=== PATIENT | male | born 1940 | race Caucasian/White ===

== ENCOUNTER → 2017-07-07 | Outpatient (CLI) | payer MEDICARE, BC ==
[2017-07-07 08:57] LABS: Basophils # (A) 0.1 k/uL (0-0.2); Basophils % (A) 1 %; Eosinophils # (A) 0.4 k/uL (0-0.7); Eosinophils % (A) 5 %; HCT 42.4 % (39.0-53.0); HGB 14.4 gm/dL (13.0-17.5); Lymphocytes # (A) 1.8 k/uL (1.0-4.8); Lymphocytes % (A) 26 %; MCH 31.5 pg (25.0-35.0); MCHC 33.9 g/dL (31.0-37.0); Mean Platelet Volume 7.4; Monocytes # (A) 0.5 k/uL (0-1.0); Monocytes % (A) 8 %; Neutrophils # (A) 4.1 k/uL (1.3-7.7); Neutrophils % (A) 59 %; Platelet Count 230 k/uL (150-450); RBC 4.56 m/uL (4.30-5.90); RDW 12.9 % (11.5-15.5); WBC 6.9 k/uL (3.8-10.6)
[2017-07-07 09:58] LABS: ALT 24 U/L (21-72); AST 24 U/L (17-59); Alkaline Phosphatase 54 U/L (38-126); Anion Gap 13 mmol/L; Blood Urea Nitrogen 20 mg/dL (9-20); Calcium 9.5 mg/dL (8.4-10.2); Carbon Dioxide 27 mmol/L (22-30); Chloride 103 mmol/L (98-107); Cholesterol 206 mg/dL (<200); Creatine Kinase 134 U/L (55-170); Glucose 96 mg/dL (74-99); HDL Cholesterol 35 mg/dL (40-60); LDL Cholesterol,Calculated 127 mg/dL (0-99); Magnesium 2.1 mg/dL (1.6-2.3); Potassium 4.5 mmol/L (3.5-5.1); Sodium 143 mmol/L (137-145); Total Bilirubin 0.6 mg/dL (0.2-1.3); Total Protein 6.5 g/dL (6.3-8.2); Triglycerides 218 mg/dL (<150); Uric Acid 6.7 mg/dL (3.5-8.5)
[2017-07-07 10:12] LABS: T4, Free (Free Thyroxine) 0.94 ng/dL (0.78-2.19)
[2017-07-07 10:26] LABS: Prostate Specific Antigen 0.11 ng/mL (0.00-4.00)
[2017-07-07 10:27] LABS: Erythrocyte Sedimentation Rate 9 mm/hr (0-15)
[2017-07-07 17:15] LABS: Hemoglobin A1C 5.2 % (4.0-6.0)
== END | disposition home or self-care (01) ==
LOC: LABWHC1 08:11
PROVIDERS: ATTEND Family Medicine
DX: Z00.00 Encounter for general adult medical examination without abnormal findings (principal); E78.2 Mixed hyperlipidemia; H53.2 Diplopia; M10.9 Gout, unspecified; R53.83 Other fatigue
CPT/HCPCS: 36415; 80053; 80061; 82306; 82550; 82607; 83036; 83735; 84153; 84439; 84443; 84550; 85025; 85652

== ENCOUNTER → 2017-11-15 | Outpatient (CLI) | payer MEDICARE, BC ==
[2017-11-15 08:43] LABS: Appearance,Urine Clear (Clear); Bilirubin,Urine Negative (Negative); Blood,Urine Negative (Negative); Color,Urine Light Yellow; Glucose,Urine (UA) Negative (Negative); Ketones,Urine Negative (Negative); Leukocyte Esterase,Urine Negative (Negative); Nitrite,Urine Negative (Negative); PH, Urine 6.5 (5.0-8.0); Protein,Urine Negative (Negative); Specific Gravity,Urine 1.011 (1.001-1.035); Urobilinogen,Urine <2.0 mg/dL (<2.0)
[2017-11-15 08:44] LABS: Basophils # (A) 0.1 k/uL (0-0.2); Basophils % (A) 1 %; Eosinophils # (A) 0.3 k/uL (0-0.7); Eosinophils % (A) 4 %; Lymphocytes # (A) 1.4 k/uL (1.0-4.8); Lymphocytes % (A) 23 %; MCH 30.8 pg (25.0-35.0); MCHC 32.6 g/dL (31.0-37.0); MCV 94.5 fL (80.0-100.0); Mean Platelet Volume 6.4; Monocytes # (A) 0.4 k/uL (0-1.0); Monocytes % (A) 6 %; Neutrophils % (A) 64 %; Platelet Count 228 k/uL (150-450); RBC 4.54 m/uL (4.30-5.90); RDW 12.7 % (11.5-15.5); WBC 6.2 k/uL (3.8-10.6)
[2017-11-15 09:20] LABS: ALT 22 U/L (21-72); AST 24 U/L (17-59); Alkaline Phosphatase 44 U/L (38-126); Anion Gap 7 mmol/L; Blood Urea Nitrogen 19 mg/dL (9-20); Calcium 9.1 mg/dL (8.4-10.2); Carbon Dioxide 29 mmol/L (22-30); Chloride 104 mmol/L (98-107); Cholesterol 164 mg/dL (<200); Creatine Kinase 103 U/L (55-170); Glucose 93 mg/dL (74-99); HDL Cholesterol 39 mg/dL (40-60); LDL Cholesterol,Calculated 94 mg/dL (0-99); Magnesium 1.9 mg/dL (1.6-2.3); Potassium 4.4 mmol/L (3.5-5.1); Sodium 140 mmol/L (137-145); Total Bilirubin 0.6 mg/dL (0.2-1.3); Total Protein 6.5 g/dL (6.3-8.2); Triglycerides 156 mg/dL (<150); Uric Acid 6.3 mg/dL (3.5-8.5)
[2017-11-15 09:30] LABS: T4, Free (Free Thyroxine) 0.97 ng/dL (0.78-2.19)
[2017-11-15 19:57] LABS: Hemoglobin A1C 5.4 % (4.0-6.0)
== END | disposition home or self-care (01) ==
LOC: LABWHC1 07:39
PROVIDERS: ATTEND Family Medicine
DX: Z00.00 Encounter for general adult medical examination without abnormal findings (principal); I10 Essential (primary) hypertension; E78.2 Mixed hyperlipidemia; M10.9 Gout, unspecified
CPT/HCPCS: 36415; 80053; 80061; 81003; 82550; 83036; 83735; 84439; 84443; 84550; 85025

== ENCOUNTER → 2018-07-10 | Outpatient (CLI) | payer MEDICARE, BC ==
[2018-07-10 08:13] LABS: Basophils # (A) 0.1 k/uL (0-0.2); Basophils % (A) 1 %; Eosinophils # (A) 0.3 k/uL (0-0.7); Eosinophils % (A) 5 %; HCT 42.5 % (39.0-53.0); HGB 14.2 gm/dL (13.0-17.5); Lymphocytes # (A) 1.6 k/uL (1.0-4.8); Lymphocytes % (A) 26 %; MCH 31.6 pg (25.0-35.0); MCHC 33.3 g/dL (31.0-37.0); MCV 94.7 fL (80.0-100.0); Mean Platelet Volume 6.7; Monocytes # (A) 0.4 k/uL (0-1.0); Monocytes % (A) 7 %; Neutrophils # (A) 3.8 k/uL (1.3-7.7); Neutrophils % (A) 60 %; Platelet Count 249 k/uL (150-450); RBC 4.49 m/uL (4.30-5.90); RDW 13.7 % (11.5-15.5); WBC 6.3 k/uL (3.8-10.6)
[2018-07-10 16:21] LABS: Albumin 4.3 g/dL (3.80-4.90); Albumin/Globulin Ratio 2.53 (1.60-3.17); Anion Gap 7.3 mmol/L (4.00-12.00); Calcium 8.8 mg/dL (8.7-10.3); Carbon Dioxide 27.7 mmol/L (21.6-31.8); Globulin 1.7 g/dL (1.6-3.3); LDL Cholesterol,Calculated 128.4 mg/dL (0.0-131.0); Potassium 4.2 mmol/L (3.5-5.5); Total Bilirubin 0.5 mg/dL (0.2-1.2); Uric Acid 7.1 mg/dL (3.7-8.7); VLDL Calculation 30.6 mg/dL (5.00-40.00)
[2018-07-10 16:23] LABS: Vitamin D 25 Hydroxy 36.2 ng/mL (30.0-100.0)
[2018-07-10 16:28] LABS: T4, Free (Free Thyroxine) 1.1 ng/dL (0.80-1.80)
[2018-07-10 19:40] LABS: Hemoglobin A1C 5.7 % (4.0-6.0)
== END | disposition home or self-care (01) ==
LOC: LABWHC1 07:25
PROVIDERS: ATTEND Family Medicine
DX: I10 Essential (primary) hypertension (principal); E78.2 Mixed hyperlipidemia; M10.9 Gout, unspecified; S46.091S Other injury of muscle(s) and tendon(s) of the rotator cuff of right shoulder, sequela; E55.9 Vitamin D deficiency, unspecified; R73.01 Impaired fasting glucose; N40.0 Benign prostatic hyperplasia without lower urinary tract symptoms
CPT/HCPCS: 36415; 80053; 80061; 82306; 82607; 83036; 84153; 84439; 84443; 84550; 85025

== ENCOUNTER → 2018-07-25 | Outpatient (CLI) | payer MEDICARE, BC ==
--- NOTE | 2018-07-25 14:34 | XR ---
EXAMINATION TYPE: XR chest 2V DATE OF EXAM: 07/25/2018 COMPARISON: NONE HISTORY: Cough TECHNIQUE: Frontal and lateral views of the chest are obtained. FINDINGS: There is no focal air space opacity, pleural effusion, or pneumothorax seen. Bilateral hil ar prominence is seen. An informed The cardiac silhouette size is within normal limits. Retrocardiac density with air-fluid levels are present to partial intrathoracic stomach. The osseous structures a re intact. Mild multilevel degenerative changes of the thoracic spine are seen. IMPRESSION: 1. No acute cardiopulmonary process. 2. Partial intrathoracic stomach. 3. Hilar prominence could relate to underlying pulmonary tumor hypertension.
== END | disposition home or self-care (01) ==
LOC: LABWHC1 13:50
PROVIDERS: ATTEND Internal Medicine Interventional Cardiology
DX: J18.9 Pneumonia, unspecified organism (principal); Z91.040 Latex allergy status; Z88.5 Allergy status to narcotic agent
CPT/HCPCS: 71046

== ENCOUNTER → 2018-08-01 | Day surgery (SDC) | payer MEDICARE, BC ==
[2018-07-27 15:19] VITALS: BMI 26.6
[~2018-08-01] MED LIST: ACETAMINOPHEN TAB 325 MG TAB PO STA; ALPRAZolam 0.25 MG TAB PO PRN; ASPIRIN 325 MG TAB PO ONE; ASPIRIN 81 MG PO SCH; ATENOLOL 25 MG TAB PO SCH; EZETIMIBE 10 MG TAB PO SCH; HEPARIN SODIUM 1,000 UN/ML (10ML VL) IV ONE; IOPAMIDOL-370 100ML BTL INJ ONE; LIDOCAINE 1% INJ 10MG/ML (20 ML MDV) SQ ONE; LISINOPRIL 10 MG TAB PO SCH; MIDAZOLAM (PF) 2 MG/2 ML VIAL IV ONE; NITROGLYCERIN 1000MCG/10ML SYRINGE INTRAARTER ONE; RX INFO: IV CONTRAST WAS GIVEN 1 EACH MISC MISCELLANE PRN; SODIUM CHLORIDE 0.9% 1,000 ML IV SCH; SODIUM CHLORIDE 0.9% 1,000 ML in EMPTY BAG 1 BAG IV ONE
[2018-08-01 07:08] VITALS: RESP 20; TEMP 97.9
[2018-08-01] MEDS: VERAPAMIL SYRINGE (5 MG/10 ML) INTRAARTER ONE ×3 (07:56→08:35)
[2018-08-01 11:52] LABS: Appearance,Urine Clear (Clear); Bilirubin,Urine Negative (Negative); Blood,Urine Negative (Negative); Color,Urine Light Yellow; Glucose,Urine (UA) Negative (Negative); Ketones,Urine Negative (Negative); Leukocyte Esterase,Urine Negative (Negative); Nitrite,Urine Negative (Negative); Protein,Urine Negative (Negative); Specific Gravity,Urine 1.032 (1.001-1.035); Urobilinogen,Urine <2.0 mg/dL (<2.0)
--- NOTE | 2018-08-01 12:08 | P.GSCN ---
<[place] - Last Filed: 08/01/18 11:49> History of Present Illness Consult date: 08/01/18 Reason for Consult: Severe triple vessel coronary artery disease, recommendations for surgical revas cularization Requesting physician: Layne Medel History of present illness: This is an 78-year-old active gentleman who follows on an outpatient basis with Dr. Lima. He has a previous medical history of coronary artery disease and myocardial infarction status post multiple coronary stenting, most recent was in 2006, hypertension, hyperlipidemia, prostate cancer status post radiation approximate 7-8 years ago, obstructive sleep apnea with CPAP use, no tobacco dependence but long history of secondhand smoke exposure, and multiple male [facility] ly members from myocardial infarction before 70 years of age. He has been having increasing symptoms of chest pressure, fatigue, and shortness of breath over the previous several weeks. He denied any lower extremity edema, paroxysmal nocturnal dyspnea, nausea, diaphoresis, dizziness, strokelike symptoms, or sick contacts. He was seen by Dr. RIO Medel, underwent a stress test which demonstrated inferior wall fixed defect and inferolateral ferny- infarct ischemia. In addition he had a transthoracic echocardiogram demonstrating impaired systolic function with an EF 40%, inferior wall hy pokinesia, no significant pulmonary hypertension, and no gradient across the aortic valve. He was recommended to undergo heart catheterization which was completed today and which demonstrated RCA stenosis 80% with PLV stenosis 90%, mid LAD stenosis 95%, and circumflex stenosis 75%. Due to these findings Dr. Avitia from cardiothoracic surgery was consulted for surgical revascularization recommendations. Review of Systems Review of systems was completed and was negative except as noted - Constitutional Reports fatigue - Cardiovascular Reports chest pain, Reports decreased exercise tolerance, Reports dyspnea on exe rtion Past Medical History Past Medical History: Coronary Artery Disease (CAD), Cancer, Chest Pain / Angina, Heart Failure, Hypertension, Myocardial Infarction ([place]), Osteoarthritis (OA), Prostate Disorder, Sleep Apnea/CPAP/BIPAP Additional Past Medical History / Comment(s): [place] X3, 1st at 55yrs old, unsure of when other 2 were. Hx Prostate cancer 7-8 yrs ago, treated with radiation. CPAP use. Current cough, Z-Pack prescribed per Dr Medel. Last Myocardial Infarction Date:: ? History of Any Multi-Drug Resistant Organisms: None Reported Past Surgical History: Heart Catheterization With Stent, Hernia Repair, Orthopedic Surgery Additional Past Surgical History / Comment(s): 7 stents, 7 hernia repairs, 3 bilateral shoulder surgeries, bilateral cataract surgery. Additional Past Anesthesia/Blood Transfusion Reaction / Comm: "A little goes a long way." Date of Last Stent Placement:: 2011 Past Psychological History: No Psychological Hx Reported Smoking Status: Never smoker Past Alcohol Use History: Rare Past Drug Use History: None Reported Additional History: Significant history of secondhand smoke exposure - Past Family History Daughter(s) Family Medical History: Cancer Additional Family Medical History / Comment(s): Breast cancer. Father Family Medical History: Coronary Artery Disease (CAD), Myocardial Infarction ([place]) Additional Family Medical History / Comment(s): Multiple male family members on his father's side who from myocardial infarction less than 70 years of age Medications and Allergies Home Medications Medication Instructions Recorded Confirmed Type Aspirin [Adult Low Dose Aspirin EC] 81 mg PO DAILY 07/27/18 08/03/18 History Atenolol [Tenormin] 25 mg PO HS 07/27/18 08/03/18 History Ezetimibe [Zetia] 10 mg PO Q2D 07/27/18 08/03/18 History Lisinopril [Zestril] 10 mg PO DAILY 07/27/18 08/03/18 History Allergies Allergy/AdvReac Type Severity Reaction Status Date / Time codeine Allergy Nausea & Verified 08/03/18 13:36 Vomiting latex Allergy Anaphylaxis Verified 08/03/18 14:22 Surgical - Exam Vital Signs Temp Pulse Resp BP Pulse Ox 97.9 F 83 20 144/91 97 08/01/18 07:03 08/01/18 07:03 08/01/18 07:03 08/01/18 07:03 08/01/18 07:03 - General well developed, well nourished, no distress, no pain - Eyes normal ocular movement - ENT no hearing loss - Neck no masses, no bruits, trachea midline - Respiratory Lungs sounds clear bilaterally. Respirations even, nonlabored. Currently on room air with oxygen saturation 93%. No chest wall deformities. - Cardiovascular S1, S2 present. Regular rate and rhythm, sinus rhythm on telemetry. Palpable peripheral pulses bilaterally. No edema present. No calf pain or tenderness noted. No varicosities noted. Negative left radial Andrey's test. - Abdomen Abdomen: soft, non tender, bowel sounds - Genitourinary Deferred - Rectum Deferred - Integumentary Skin is warm and dry with evidence of good perfusion. Right radial artery heart catheterization site without edema or drainage, TR band in place. - Neurologic normal coordination, normal sensation - Musculoskeletal normal posture - Psychiatric oriented to time, oriented to person, oriented to place, speech is normal, memory intact Results - Imaging Additional studies: Heart catheterization films were reviewed. Assessment and Plan Assessment: 1. Triple-vessel coronary artery disease, status post multiple coronary stents in the past 2. Previous history of myocardial infarction 3. Chronic systolic heart failure with EF 40% 4. History of hypertension, treated 5. History of hyperlipidemia, treated 6. Obstructive sleep apnea with home CPAP use 7. History of prostate cancer with radiation therapy 8. Never smoker, but significant history of secondhand smoke exposure 9. Family history of significant coronary artery disease 10. Patient with intolerance to Plavix and statins Plan: The patient was seen and examined in the extended stay area. Chart/diagnostics were reviewed. The case will be discussed in detail with Dr. Avitia. The usual perioperative course for coronary artery bypass graft surgery was discussed in detail with the patient and his family, risks and benefits were reviewed, all questions were answered. Preoperative testing was initiated. Will calculate STS risk score once all preoperative testing has been completed. We recommend continuing aspirin and beta marylou as well as Zetia and lisinopril. Would normally recommend statin therapy but patient states he is intolerant. More recommendations to follow regarding timing of surgery once Dr. Avitia has had an opportunity to look at the patient's heart catheterization films. Thank you Dr. Medel for this consult. We look forward to working with you in the care of your patient. Time with Patient: Greater than 30 <Avel Avitia - Last Filed: 08/04/18 16:47> Surgical - Exam Vital Signs Temp Pulse Resp BP Pulse Ox 97.9 F 83 20 144/91 97 08/01/18 07:03 08/01/18 07:03 08/01/18 07:03 08/01/18 07:03 08/01/18 07:03 Results - Labs 08/01/18 17:05 08/01/18 17:05 Assessment and Plan Plan: The patient was seen and examined. I agree with the above assessment and plan. The patient is an 78-year-old male who was found to have multivessel coronary artery disease. He does have a history of multiple previous coronary stents. His cardiac catheterization was personally reviewed. He does appear to have targets suitable for bypass. A coronary artery bypass was recommended. The risks, benefits, and alternatives to this procedure were discussed with the patient. All his questions were answered. We will obtain our standard preoperative workup and plan on performing his procedure as an outpatient next week.
--- NOTE | 2018-08-01 12:20 | CC ---
CARDIAC CATHETERIZATION REPORT DATE OF SERVICE: 08/01/2018 PROCEDURE: Left heart catheterization and coronary angiography. PERFORMED BY: Dr. Emily Medel. Moderate conscious sedation time was 45 minutes. CLINICAL INFORMATION: Mr. Terell Partida is an 78-year-old gentleman with a known history of hypertension, hyperlipidemia with intolerance to statins. He has had multiple interventions involving the LAD, distal RCA and the PLV branch of RCA performed on multiple occasions between 2001 and 2006. The last procedure was in 2006 of the PLV branch of RCA. Because of symptoms suggestive of angina and a positive stress test with inferolateral reversible defect and fixed defect and hypokinesia, I advised coronary angiography with concern that he may have multivessel disease. The patient wished the cardiac cath to be performed from right radial approach because of some discomfort in the groin with previous procedures. PROCEDURE NOTE: Under local anesthesia and strict aseptic precautions, a 6-Luxembourgish introducer was placed in the right femoral artery. Initially I used a JR4 catheter to perform selective coronary angiography of the right coronary artery. I then tried an Ultimate I, but I could not cannulate the left coronary artery. There was extreme tortuosity and calcification in the innominate artery also. Eventually with a stiff Amplatz wire and a JL3.5 catheter, I was able to selectively inject the left coronary artery. I checked LV pressures with the right catheter but LV gram was not performed. Following the procedure, the sheath was taken out and TR band applied as per protocol with saturation in the fingers of the right hand of 96%. He was sent to the room in stable condition. CARDIAC CATHETERIZATION FINDINGS: The left ventricle end-diastolic pressure was 14 mmHg without any gradient across the aortic valve. CORONARY ANGIOGRAPHY FINDINGS: The right coronary artery technically a large dominant vessel which is heavily calcified in the proximal and mid portion. In the proximal portion, there is a 50% narrowing, in the midportion there is another 40% narrowing distally. There is 80% narrowing within the stented segment and just before that, there is an acute marginal branch that comes off. Beyond this is an 80% stenosis. The vessel bifurcates into PDA and PLV. The PDA branch was previously stented, has an 80%-90% lesion with diffuse disease. The PLV branch appears to be relatively free of significant disease and gives off multiple branches. RCA is a super dominant vessel, but there is a distal 80% lesion distal to the stented segment and also the PDA has significant lesion. There is another acute marginal branch in the PDA distribution that is free of significant disease. RCA is a graftable vessel, but heavy calcification is noted. LEFT MAIN CORONARY ARTERY: This is a short, patent vessel that has a distal lesion of about 25% to 30% and bifurcates into LAD and circumflex. Left main therefore has a 25% distal lesion. LEFT ANTERIOR DESCENDING CORONARY ARTERY: This vessel in the proximal portion has a 20% lesion, it gives off a diagonal branch that is about 60% lesion diffusely diseased. The mid LAD was stented in the within the stent there was a 50% stenosis and then after that in the distal aspect of the stent. The distal aspect of the stent there was a 90% stenosis after which the caliber improves and the vessel runs all the way to the apex with diffuse disease. The distal LAD is appears to be graftable vessel and the diagonal also is probably a graftable vessel. There is diffuse disease with calcification in the LAD. Left posterior circumflex coronary artery nondominant vessel. The ostium is free of significant disease gives off an obtuse marginal that has a 70% ostial lesion and a mid lesion of another 70-80 percent. Obtuse marginal is a graftable vessel. There is a good. There is a groove branch that is free of significant disease. There is single obtuse marginal with 2 areas of 70% stenosis and it is a graftable vessel. LEFT VENTRICULOGRAM: This was not performed. FINAL IMPRESSION: I performed procedure from the right radial approach. Coronary angiography was somewhat suboptimal and I had difficulty because of extreme tortuosity in the innominate brachiocephalic artery. There is also calcification of the ascending aorta noted. However, patient has a superdominant RCA with multiple lesions and 80% distal lesion and also the PDA branch has a tight 80% lesion. RCA is a graftable vessel. Left main has 25% lesion. LAD has a mid lesion of 90% with multiple diffuse areas of narrowing proximal to it, but distal LAD is graftable. Diagonal branch has diffuse disease but is graftable distally. Circumflex is nondominant, gives off a single obtuse marginal that has to 70% lesion but is a graftable vessel. LV-gram was not performed. No gradient across aortic valve. RECOMMENDATION: I am recommending an echocardiogram and a carotid Doppler. I am recommending aortocoronary bypass surgery for this patient with triple-vessel disease with graft to LAD, diagonal, circumflex marginal and also [address] Avitia will hopefully see the patient today. Results were discussed with the patient and family. LORI / MILDRED: [id number] / MTDMega
--- NOTE | 2018-08-01 12:31 | ECHOF ---
Referral Reason:cardiac surgery MEASUREMENTS -------- HEIGHT: 167.6 cm WEIGHT: 74.8 kg BP: IVSd: 1.3 cm (0.6 - 1.1) LVIDd: 4.6 cm (3.9 - 5.3) LVPWd: 1.3 cm (0.6 - 1.1) IVSs: 2.1 cm LVIDs: 3.1 cm LVPWs: 2.2 cm Ao Diam: 2.8 cm (2.0 - 3.7) AV Cusp: 1.0 cm (1.5 - 2.6) LA Diam: 2.5 cm (2.7 - 3.8) EPSS: 0.6 cm MV E Manish: 0.53 m/s MV DecT: 229 ms MV A Manish: 0.87 m/s MV E/A Ratio: 0.61 AV maxP.06 mmHg AV meanP.07 mmHg RAP: 5.00 mmHg RVSP: 31.48 mmHg MV EF SLOPE: 81.29 mm/s (70 - 150) MV EXCURSION: 1.33 cm (> 18.000) FINDINGS -------- Sinus rhythm with extra systolic beats. This was a technically difficult study with suboptimal views. The left ventricular size is normal. There is mild concentric left ventricular hypertrophy. Overa ll left ventricular systolic function is low-normal with, an EF between 50 - 55 %. The right ventricle is normal in size. The left atrial size is normal. The right atrial size is normal. Lumason used Interatrial and interventricular septum intact. Aortic valve is trileaflet and is moderately thickened. There is moderate aortic stenosis present. Peak/mean gradient across the valve is 38.06mmHg / 20.07mmHg. The mitral valve leaflets are mildly thickened. There is trace mitral regurgitation. Mild tricuspid regurgitation present. There is no evidence of pulmonary hypertension. The right v entricular systolic pressure, as measured by Doppler, is 31.48mmHg. Trace/mild (physiologic) pulmonic regurgitation. The aortic root size is normal. The inferior vena cava was not well visualized. There is no pericardial effusion. CONCLUSIONS -------- 1. Sinus rhythm with extra systolic beats. 2. This was a technically difficult study with suboptimal views. 3. The left ventricular size is normal. 4. There is mild concentric left ventricular hypertrophy. 5. Overall left ventricular systolic function is low-normal with, an EF between 50 - 55 %. 6. The right ventricle is normal in size. 7. The left atrial size is normal. 8. The right atrial size is normal. 9. Lumason used 10. Interatrial and interventricular septum intact. 11. Aortic valve is trileaflet and is moderately thickened. 12. There is moderate aortic stenosis present. 13. Peak/mean gradient across the valve is 38.06mmHg / 20.07mmHg. 14. The mitral valve leaflets are mildly thickened. 15. There is trace mitral regurgitation. 16. Mild tricuspid regurgitation present. 17. There is no evidence of pulmonary hypertension. 18. The right ventricular systolic pressure, as measured by Doppler, is 31.48mmHg. 19. Trace/mild (physiologic) pulmonic regurgitation. 20. The aortic root size is normal. 21. The inferior vena cava was not well visualized. 22. There is no pericardial effusion. FACILITY MAINTENANCE HELPER: Cass Hutchinson RDCS
--- NOTE | 2018-08-01 14:47 | US ---
EXAMINATION TYPE: US carotid duplex BILAT DATE OF EXAM: 08/01/2018 COMPARISON: NONE CLINICAL HISTORY: preop cabg. CAD, coronary artery stents EXAM MEASUREMENTS: RIGHT: Peak Systolic Velocity (PSV) cm/sec ----- Right CCA: 50.5 ----- Right ICA: 55.0 ----- Right ECA: 52.4 ICA/CCA ratio: 1.1 RIGHT: End Diastole cm/sec ----- Right CCA: 15.6 ----- Right ICA: 13.0 ----- Right ECA: 12.7 LEFT: Peak Systolic Velocity (PSV) cm/sec ----- Left CCA: 43.1 ----- Left ICA: 53.1 ----- Left ECA: 82.1 ICA/CCA ratio: 1.2 LEFT: End Diastole cm/sec ----- Left CCA: 13.2 ----- Left ICA: 25.3 ----- Left ECA: 15.6 VERTEBRALS (direction of flow): Right Vertebral: Antegrade Left Vertebral: Antegrade Rhythm: Arrhythmia Mild to moderate, mixed and calcified wall plaque throughout bilateral carotid system, but PSV is wnl bilaterally. Grayscale, color Doppler, spectral Doppler imaging performed of the carotid arteries. Waveform analys is does not show significant stenosis of the internal carotid arteries. IMPRESSION: No hemodynamic significant stenosis of the proximal internal carotid arteries bilaterall y by Doppler criteria, an indirect measurement of carotid stenosis. Cardiac arrhythmia noted incident ally.
[2018-08-01 16:23] VITALS: BP 118/65; PULSE 82
[2018-08-01 17:30] LABS: Basophils # (A) 0.1 k/uL (0-0.2); Basophils % (A) 1 %; Eosinophils # (A) 0.3 k/uL (0-0.7); Eosinophils % (A) 4 %; HCT 43.7 % (39.0-53.0); HGB 14.7 gm/dL (13.0-17.5); Lymphocytes # (A) 2.3 k/uL (1.0-4.8); Lymphocytes % (A) 26 %; MCH 31.1 pg (25.0-35.0); MCHC 33.6 g/dL (31.0-37.0); MCV 92.6 fL (80.0-100.0); Mean Platelet Volume 6.7; Monocytes # (A) 0.6 k/uL (0-1.0); Monocytes % (A) 7 %; Neutrophils # (A) 5.5 k/uL (1.3-7.7); Neutrophils % (A) 62 %; Platelet Count 270 k/uL (150-450); RBC 4.72 m/uL (4.30-5.90); RDW 14.2 % (11.5-15.5); WBC 8.9 k/uL (3.8-10.6)
[2018-08-01 17:40] LABS: INR 0.9 (<1.2); Partial Thromboplastin Time 24.9 sec (22.0-30.0)
[2018-08-01 17:41] LABS: Albumin 4.2 g/dL (3.5-5.0); Calcium 9.1 mg/dL (8.4-10.2); Potassium 4.5 mmol/L (3.5-5.1); Total Bilirubin 0.4 mg/dL (0.2-1.3); Total Protein 6.6 g/dL (6.3-8.2)
== END | disposition home or self-care (01) ==
LOC: CATHCVL 06:09
PROVIDERS: ATTEND Internal Medicine Interventional Cardiology
DX: I25.110 Atherosclerotic heart disease of native coronary artery with unstable angina pectoris (principal); I08.0 Rheumatic disorders of both mitral and aortic valves; R94.39 Abnormal result of other cardiovascular function study; E78.5 Hyperlipidemia, unspecified; I70.0 Atherosclerosis of aorta; I25.2 Old myocardial infarction; G47.33 Obstructive sleep apnea (adult) (pediatric); I11.0 Hypertensive heart disease with heart failure; I50.22 Chronic systolic (congestive) heart failure; E78.00 Pure hypercholesterolemia, unspecified; M19.90 Unspecified osteoarthritis, unspecified site; Z77.22 Contact with and (suspected) exposure to environmental tobacco smoke (acute) (chronic); Z79.82 Long term (current) use of aspirin; Z91.040 Latex allergy status; Z79.899 Other long term (current) drug therapy; Z85.46 Personal history of malignant neoplasm of prostate; Z92.3 Personal history of irradiation; Z88.5 Allergy status to narcotic agent; Z99.89 Dependence on other enabling machines and devices; Z82.49 Family history of ischemic heart disease and other diseases of the circulatory system; Z95.5 Presence of coronary angioplasty implant and graft; Z88.2 Allergy status to sulfonamides
CPT/HCPCS: 93458; 80053; 85025; 85610; 85730; 81003; 87070; 87086; 93970; 93880; C8929; C1769 ×2; C1894; J2001; J1644; Q9950; Q9967; J2250; 86850; 86900; 86901; 93306; 94150

== ENCOUNTER 2018-08-07 05:29 | Inpatient (IN) | payer MEDICARE, BC ==
[~2018-08-07 05:29] MED LIST changes: -ACETAMINOPHEN TAB 325 MG TAB PO STA; +ALBUMIN HUMAN 25% 50 ML IV ONE; -ALPRAZolam 0.25 MG TAB PO PRN; -ASPIRIN 81 MG PO SCH; -ATENOLOL 25 MG TAB PO SCH; +ATORVASTATIN 10 MG TAB PO ONE; +CALCIUM CHLORIDE 100 MG/ML 10 ML SYRINGE IV ONE; +CHLORHEXIDINE GLUCONATE 15 ML CUP MUCOUS MEM ONE; +CLEVIDIPINE BUTYRATE 25 MG in EMPTY BAG 1 BAG IV ONE; +DEXTROSE 5% IN WATER 1,000 ML with POTASSIUM CHLORIDE 110 MEQ, MAGNESIUM SULFATE 16 MEQ... IV ONE; +DEXTROSE 5% IN WATER 1,000 ML with POTASSIUM CHLORIDE 25 MEQ, SODIUM CHLORIDE 2.5MEQ/ML... IRRIGATION ONE; -EZETIMIBE 10 MG TAB PO SCH; +HEPARIN SODIUM,PORCINE 5,000 UNIT in SODIUM CHLORIDE 0.9% 500 ML 500 ML IV ONE; +INSULIN REGULAR 100 UNIT in SODIUM CHLORIDE 0.9% 100 ML IV ONE; -IOPAMIDOL-370 100ML BTL INJ ONE; +LACTATED RINGERS 1,000 ML IV ONE; -LIDOCAINE 1% INJ 10MG/ML (20 ML MDV) SQ ONE; -LISINOPRIL 10 MG TAB PO SCH; +MAGNESIUM SULFATE MG 500 MG/ML IV ONE; +MANNITOL 25% 12.5 GM/50 ML VIAL IV ONE; +METOPROLOL TARTRATE 12.5 MG TAB PO ONE; -MIDAZOLAM (PF) 2 MG/2 ML VIAL IV ONE; -NITROGLYCERIN 1000MCG/10ML SYRINGE INTRAARTER ONE; +NITROGLYCERIN-D5W PMX 25 MG/250 ML BTL IV ONE; +NITROGLYCERIN-D5W PMX 50 MG in DEXTROSE/WATER 1 250ML.BAG IV ONE; +NOREPINEPHRINE 4 MG in SODIUM CHLORIDE 0.9% 250 ML IV ONE; +PAPAVERINE 360 MG in SODIUM CHLORIDE 0.9% 90 ML IV ONE; +PHENYLEPHRINE 10 MG/ML VIAL IV ONE; +PHENYLEPHRINE 40 MG in SODIUM CHLORIDE 0.9% 250 ML IV ONE; +PROPOFOL 1,000 MG/100 ML VIAL IV ONE; +PROTAMINE SULFATE 10 MG/ML 25 ML VIAL IV ONE; +PROTAMINE SULFATE 250 MG in EMPTY BAG 1 BAG IV ONE; -RX INFO: IV CONTRAST WAS GIVEN 1 EACH MISC MISCELLANE PRN; +SODIUM BICARB 8.4% 50 ML SYR (1 MEQ/ML) IV ONE; +SODIUM CHLORIDE 0.9% 1,000 ML IV ONE; -SODIUM CHLORIDE 0.9% 1,000 ML IV SCH; -SODIUM CHLORIDE 0.9% 1,000 ML in EMPTY BAG 1 BAG IV ONE; +TRANEXAMIC ACID 2,000 MG in SODIUM CHLORIDE 0.9% 80 ML IV ONE; +VANCOMYCIN 1,000 MG VIAL MISCELLANE ONE; +ceFAZolin 1,000 MG in SODIUM CHLORIDE 0.9% IRRIGATIO 1,000 ML IRRIGATION ONE; +ceFAZolin 2,000 MG in SODIUM CHLORIDE 0.9% 30 ML IVPB ONE; +ceFAZolin IN SWFI 2 GM/20 ML SYRINGE IVP ONE
[2018-08-07] MEDS ORDERED: MAGNESIUM SULFATE 4 MEQ/ML 10ML VIAL ONE (07:51)
[2018-08-07] MEDS ORDERED: fentaNYL (PF) 50 MCG/ML 50 ML VIAL ONE (07:51)
[2018-08-07] MEDS ORDERED: TRANEXAMIC ACID 1,000 MG/10 ML VIAL ONE (07:51)
[2018-08-07] MEDS ORDERED: PROPOFOL 10 MG/ML 20 ML VIAL IV ONE (07:51)
[2018-08-07] MEDS ORDERED: fentaNYL (PF) 50 MCG/ML 2 ML AMP ONE (07:51)
[2018-08-07] MEDS ORDERED: LIDOCAINE 1% INJ 10MG/ML (20 ML MDV) ONE (07:51)
[2018-08-07] MEDS ORDERED: ELECTROLYTE-R (PH 7.4) 1,000 ML IV.SOLN IV ONE (07:51)
[2018-08-07] MEDS ORDERED: SODIUM CHLORIDE 0.9% 250 ML BAG ONE (07:51)
[2018-08-07] MEDS ORDERED: PROTAMINE SULFATE 10 MG/ML 25 ML VIAL IV ONE (07:51)
[2018-08-07] MEDS ORDERED: SODIUM CHLORIDE 0.9% IRRIG 1,000 ML BTL IRRIGATION ONE (07:51)
[2018-08-07] MEDS ORDERED: VECURONIUM 10 MG VIAL IV ONE (07:51)
[2018-08-07] MEDS ORDERED: PHENYLEPHRINE-0.9% NACL SYG 1 MG/10 ML SYRINGE ONE (07:51)
[2018-08-07] MEDS ORDERED: LIDOCAINE 2% SYG (PF) 100 MG/5 ML ONE (07:51)
[2018-08-07] MEDS ORDERED: HEPARIN SODIUM,PORCINE 10,000 UNIT/ML 1 ML VIAL ONE (07:51)
[2018-08-07] MEDS ORDERED: CALCIUM CHLORIDE 100 MG/ML 10 ML SYRINGE ONE (07:51)
[2018-08-07] MEDS ORDERED: ePHEDrine SULFATE/0.9% NACL/PF 50 MG/5 ML SYRINGE IV ONE (07:51)
[2018-08-07] MEDS ORDERED: ceFAZolin 1,000 MG VIAL ONE (07:51)
[2018-08-07] MEDS ORDERED: MIDAZOLAM 2 MG/2 ML VIAL ONE (07:51)
[2018-08-07 08:59] LABS: ABG Base Excess 0.3 mmol/L; ABG Glucose Whole Blood 116 mg/dL (75-99); ABG HCO3 26 mmol/L (21-25); ABG Hematocrit 39 % (34.0-46.0); ABG Ionized Calcium 4.7 mg/dL (4.5-5.3); ABG Lactic Acid Whole Blood 1.3 mmol/L (0.5-1.6); ABG Oxygen Saturation 99.8 % (94-97); ABG PCO2 43 mmHg (35-45); ABG PH 7.38 (7.35-7.45); ABG PO2 156 mmHg (83-108); ABG Sodium Whole Blood 139 mmol/L (135-146); ABG TCO2 27 mmol/L (19-24)
[2018-08-07 10:07] LABS: ABG Base Excess -1.2 mmol/L; ABG Glucose Whole Blood 145 mg/dL (75-99); ABG HCO3 25 mmol/L (21-25); ABG Hematocrit 37 % (34.0-46.0); ABG Ionized Calcium 4.7 mg/dL (4.5-5.3); ABG Lactic Acid Whole Blood 1.2 mmol/L (0.5-1.6); ABG Oxygen Saturation 99.2 % (94-97); ABG PCO2 44 mmHg (35-45); ABG PH 7.35 (7.35-7.45); ABG PO2 118 mmHg (83-108); ABG Potassium Whole Blood 4.2 mmol/L (3.4-4.5); ABG Sodium Whole Blood 139 mmol/L (135-146); ABG TCO2 26 mmol/L (19-24)
[2018-08-07 11:02] LABS: ABG Base Excess -1.8 mmol/L; ABG Glucose Whole Blood 231 mg/dL (75-99); ABG HCO3 24 mmol/L (21-25); ABG Hematocrit 26 % (34.0-46.0); ABG Ionized Calcium 4.1 mg/dL (4.5-5.3); ABG Lactic Acid Whole Blood 1.3 mmol/L (0.5-1.6); ABG PCO2 43 mmHg (35-45); ABG PH 7.35 (7.35-7.45); ABG PO2 334 mmHg (83-108); ABG Potassium Whole Blood 5.8 mmol/L (3.4-4.5); ABG Sodium Whole Blood 130 mmol/L (135-146); ABG TCO2 25 mmol/L (19-24)
[2018-08-07 11:32] LABS: ABG Base Excess -1.6 mmol/L; ABG Glucose Whole Blood 236 mg/dL (75-99); ABG HCO3 24 mmol/L (21-25); ABG Hematocrit 27 % (34.0-46.0); ABG Ionized Calcium 4.2 mg/dL (4.5-5.3); ABG Lactic Acid Whole Blood 1.5 mmol/L (0.5-1.6); ABG PCO2 43 mmHg (35-45); ABG PH 7.36 (7.35-7.45); ABG PO2 274 mmHg (83-108); ABG Sodium Whole Blood 131 mmol/L (135-146); ABG TCO2 25 mmol/L (19-24)
[2018-08-07 12:02] LABS: ABG Base Excess -0.4 mmol/L; ABG Glucose Whole Blood 197 mg/dL (75-99); ABG HCO3 25 mmol/L (21-25); ABG Hematocrit 27 % (34.0-46.0); ABG Ionized Calcium 4.2 mg/dL (4.5-5.3); ABG Lactic Acid Whole Blood 1.8 mmol/L (0.5-1.6); ABG PCO2 44 mmHg (35-45); ABG PH 7.37 (7.35-7.45); ABG PO2 396 mmHg (83-108); ABG Potassium Whole Blood 5.5 mmol/L (3.4-4.5); ABG Sodium Whole Blood 134 mmol/L (135-146); ABG TCO2 26 mmol/L (19-24)
[2018-08-07 12:52] LABS: ABG Base Excess -2.1 mmol/L; ABG Glucose Whole Blood 158 mg/dL (75-99); ABG HCO3 24 mmol/L (21-25); ABG Ionized Calcium 4.2 mg/dL (4.5-5.3); ABG PCO2 43 mmHg (35-45); ABG PH 7.34 (7.35-7.45); ABG PO2 288 mmHg (83-108); ABG Potassium Whole Blood 4.6 mmol/L (3.4-4.5); ABG Sodium Whole Blood 136 mmol/L (135-146); ABG TCO2 25 mmol/L (19-24)
[2018-08-07 13:40] LABS: ABG Base Excess -1.1 mmol/L; ABG Glucose Whole Blood 143 mg/dL (75-99); ABG HCO3 25 mmol/L (21-25); ABG Hematocrit 28 % (34.0-46.0); ABG PCO2 45 mmHg (35-45); ABG PH 7.34 (7.35-7.45); ABG PO2 242 mmHg (83-108); ABG Potassium Whole Blood 4.1 mmol/L (3.4-4.5); ABG Sodium Whole Blood 139 mmol/L (135-146); ABG TCO2 26 mmol/L (19-24)
[2018-08-07 13:53] LABS: ABG Potassium Whole Blood 6.2 mmol/L (3.4-4.5)
[2018-08-07 13:55] LABS: ABG Hematocrit 24 % (34.0-46.0); ABG Lactic Acid Whole Blood 3.1 mmol/L (0.5-1.6)
[2018-08-07 13:56] LABS: ABG Lactic Acid Whole Blood 2.2 mmol/L (0.5-1.6)
[2018-08-07] MEDS ORDERED: BENZOCAINE/MENTHOL LOZENG 1 EACH LOZENGE MUCOUS MEM PRN (14:45)
[2018-08-07] MEDS ORDERED: IPRATROPIUM-ALBUTEROL 3 ML NEB INHALATION PRN (14:45)
[2018-08-07] MEDS ORDERED: Magnesium Replacement Protocol 1 EACH MISC MISCELLANE PRN (14:45)
[2018-08-07] MEDS ORDERED: AMIODARONE 300 MG in DEXTROSE 5% IN WATER 250 ML IV PRN ×2 (14:45)
[2018-08-07] MEDS ORDERED: Phosphorus Replacement Protoco 1 EACH MISC MISCELLANE PRN (14:45)
[2018-08-07] MEDS ORDERED: AMIODARONE 360 MG in DEXTROSE 5% IN WATER 200 ML IV PRN ×2 (14:45)
[2018-08-07] MEDS ORDERED: CALCIUM GLUCONATE 2 GM in SODIUM CHLORIDE 0.9% 100 ML IVPB PRN (14:45)
[2018-08-07] MEDS ORDERED: METOCLOPRAMIDE 5 MG/ML 2 ML VIAL IVP PRN (14:45)
[2018-08-07] MEDS ORDERED: DEXTROSE 5% IN WATER 100 ML with AMIODARONE 150 MG IV PRN (14:45)
[2018-08-07] MEDS ORDERED: ALBUMIN HUMAN 5% 250 ML in EMPTY BAG 1 BAG IVPB PRN (14:45)
[2018-08-07] MEDS ORDERED: Potassium Replacement Protocol 1 EACH MISC MISCELLANE PRN (14:45)
[2018-08-07] MEDS ORDERED: ONDANSETRON 4 MG/2 ML VIAL IVP PRN (14:45)
[2018-08-07] MEDS ORDERED: PROPOFOL 1,000 MG in EMPTY BAG 1 BAG IV SCH (14:45)
[2018-08-07 15:11] LABS: Glucose,Whole Blood 99 mg/dL (75-99)
[2018-08-07 15:13] LABS: Basophils % (A) 0 %; Eosinophils # (A) 0.1 k/uL (0-0.7); Eosinophils % (A) 1 %; Lymphocytes # (A) 0.7 k/uL (1.0-4.8); Lymphocytes % (A) 9 %; MCH 31.7 pg (25.0-35.0); MCHC 34.3 g/dL (31.0-37.0); MCV 92.6 fL (80.0-100.0); Mean Platelet Volume 8.4; Monocytes # (A) 0.5 k/uL (0-1.0); Monocytes % (A) 6 %; Neutrophils # (A) 6.4 k/uL (1.3-7.7); Neutrophils % (A) 83 %; RBC 3.02 m/uL (4.30-5.90); RDW 13.8 % (11.5-15.5); WBC 7.8 k/uL (3.8-10.6)
[2018-08-07 15:17] LABS: Ionized Calcium 5.4 mg/dL (4.5-5.3)
[2018-08-07 15:24] LABS: INR 1.1 (<1.2); Partial Thromboplastin Time 31.2 sec (22.0-30.0); Prothrombin Time 11.9 sec (9.0-12.0)
[2018-08-07 15:27] LABS: ALT 18 U/L (21-72); AST 35 U/L (17-59); African American GFR (CKD) >90 (>60 ml/min/1.73 sqM); Albumin 2.7 g/dL (3.5-5.0); Alkaline Phosphatase 24 U/L (38-126); Anion Gap 5 mmol/L; Blood Urea Nitrogen 14 mg/dL (9-20); Calcium 9.1 mg/dL (8.4-10.2); Carbon Dioxide 25 mmol/L (22-30); Chloride 108 mmol/L (98-107); Glucose 93 mg/dL (74-99); Magnesium 2.5 mg/dL (1.6-2.3); Potassium 4.3 mmol/L (3.5-5.1); Sodium 138 mmol/L (137-145); Total Bilirubin 0.5 mg/dL (0.2-1.3); Total Protein 4.3 g/dL (6.3-8.2)
[2018-08-07 15:29] LABS: HGB 9.6 gm/dL (13.0-17.5); Platelet Count 119 k/uL (150-450)
[2018-08-07 15:40] LABS: ABG HCO3 27 mmol/L (21-25); ABG PCO2 49 mmHg (35-45); ABG PH 7.35 (7.35-7.45); ABG PO2 303 mmHg (83-108); ABG TCO2 28 mmol/L (19-24)
[2018-08-07 15:41] LABS: ABG Oxygen Saturation 99.7 % (94-97)
--- NOTE | 2018-08-07 15:53 | XR ---
EXAMINATION TYPE: XR chest 1V portable DATE OF EXAM: 08/07/2018 COMPARISON: 07/25/2018 HISTORY: Post cardiac surgery. TECHNIQUE: Single frontal view of the chest is obtained. FINDINGS: Cuddy-Daphney catheter terminates in the pulmonary outflow tract. Endotracheal tube appears ov erall appropriately placed approximately 1.7 cm from the nate. Left-sided thoracostomy tube is seen without residual pneumothorax. Retrocardiac airspace disease is present. Mediastinal drains are note d. Enteric tube versus overlying tube seen over the left rohda. If enteric tube is in position reimagi ng is recommended. IMPRESSION: 1. What appears to be an enteric tube is located within the left mainstem bronchus. Alternatively ove rlying tubing is possible. If enteric tube has been placed with removal and replacement is recommende d. 2. Otherwise appropriately placed lines and tubes as discussed above. 3. Retrocardiac airspace disease likely represents atelectasis.
[2018-08-07] MEDS: CLEVIDIPINE BUTYRATE 25 MG in EMPTY BAG 1 BAG IV SCH ×2 (15:56→20:40)
[2018-08-07] MEDS: LACTATED RINGERS 1,000 ML IV SCH (15:57)
[2018-08-07] MEDS: IPRATROPIUM-ALBUTEROL 3 ML NEB INHALATION SCH ×3 (16:04→19:49)
[2018-08-07 16:12] LABS: Glucose,Whole Blood 100 mg/dL (75-99)
[2018-08-07] MEDS: ceFAZolin IN SWFI 2 GM/20 ML SYRINGE IVP SCH ×2 (16:27→23:35)
--- NOTE | 2018-08-07 16:58 | OP ---
OPERATIVE REPORT DATE OF SURGERY: 08/07/2018. PREOPERATIVE DIAGNOSIS: Coronary artery disease. POSTOPERATIVE DIAGNOSIS: Coronary artery disease. PROCEDURE: 1. Coronary bypass grafting x4 vessels (left internal mammary artery to left anterior descending artery, saphenous vein graft to obtuse marginal artery, saphenous vein graft to posterior descending artery, saphenous vein graft to posterior lateral branch of the right coronary artery). 2. Endoscopic harvest of left greater saphenous vein. 3. Epiaortic ultrasound. 4. Transesophageal echocardiogram. SURGEON: Avel Avitia MD. COATER BRAKE LININGS: 1. NOBLE Brown. 2. Casimiro Batista NP. ANESTHESIA: General. SPECIMENS: None. COMPLICATIONS: None. INDICATIONS: The patient is a an 78-year-old male with a past medical history significant for coronary artery disease status post multiple stents over the years, hypertension, myocardial infarction, sleep apnea on BiPAP, and a history of prostate cancer, who presented to his physician with worsening chest pain and shortness of breath over the past several weeks. A stress test was abnormal. Cardiac catheterization revealed multivessel coronary disease. Coronary artery bypass was recommended. The risks, benefits, and alternatives to this procedure were discussed with the patient and his . All of their questions answered. Consent was obtained. FINDINGS: The left internal mammary artery was a good conduit with brisk flow. The saphenous vein was a good conduit. The LAD measured 1.5 mm. The obtuse marginal artery was intra myocardial and measured 1.3 mm. The PDA contained significant diffuse disease and measured 1.3 mm. The PLV also contained significant diffuse disease and measured 1.3 mm. The diagonal artery was heavily calcified and not amenable for bypass. PROCEDURE IN DETAIL: The patient was taken to the operating room and placed supine on the operating table. After the induction of anesthesia, he was prepped and draped in the usual sterile fashion. Preoperative transesophageal echocardiogram revealed a preserved ejection fraction with trace mitral regurgitation. A median sternotomy was performed. The left internal mammary artery was harvested in the standard fashion taking care to clip all branches. Intravenous heparin was administered, and the vessel was transected distally revealing brisk flow. Simultaneously greater saphenous vein was harvested from the left lower extremity using endoscopic technique. All branches were tied. Both the mammary artery and vein were good conduits. A pericardial cradle was created. The ascending aorta was palpated. There was no significant calcific plaque noted. Epiaortic ultrasound was then performed on the ascending aorta. Again no calcific plaque or significant atheromatous disease was identified. An arterial cannula was placed in the distal ascending aorta. A venous cannula was placed through the right atrial appendage and directed into the IVC. Of note, the right atrial tissue was extremely friable. Both antegrade and retrograde catheters were placed as well. The patient was then placed on cardiopulmonary bypass with good decompression of the heart. The aortic cross-clamp was applied. Cold blood potassium cardioplegia was delivered in both antegrade and retrograde fashion to achieve arrest of the heart. Of note, cardioplegia was delivered every 15-20 minutes while the patient remained under cross-clamp. We began by inspecting the inferior wall. The right coronary artery itself was heavily calcified. Two branches off the coronary artery were identified. The PDA was dissected free. A small arteriotomy was created. This vessel had diffuse disease but accepted a 1 mm probe. Using saphenous vein in a reverse fashion, an end-to-side anastomosis created. This was performed using running 7-0 Prolene suture. The grafts was hemostatic and had good flow. Next, the posterior lateral branch was identified. It contained diffuse disease. Palpable calcium was identified. A soft spot amenable for bypass was identified. A small arteriotomy was created. This vessel accepted a 1 mm probe. Using saphenous vein in a reverse fashion, an end-to-side anastomosis was created. This was performed using a running 7-0 Prolene suture. The graft was hemostatic and had adequate flow. Next, the obtuse marginal artery was identified on the lateral wall. I dissected it free and followed it distally and where it was present in an intramyocardial position. The vessel was soft and thin-walled. A small arteriotomy was created. This vessel accepted a 1 mm probe. Using saphenous vein in a reverse fashion, an end-to- side anastomosis was created. This was performed using a running 7-0 Prolene suture. The graft was hemostatic and had great flow. Next, the diagonal artery was identified. It was dissected free. There were multiple branches. Throughout its course, it was heavily calcified and small in diameter. I did not feel it was amenable for bypass. Finally the LAD was dissected free in its mid to distal portion just beyond heavy calcium and palpable stent. A small arteriotomy was created. This vessel accepted a 1 mm probe. Using the left internal mammary artery, an end-to-side anastomosis created. This was performed using a running 8-0 Prolene suture. The graft was hemostatic. The mammary pedicle was then tacked down to the anterior surface of the heart. Attention was then turned to the proximal anastomoses. These were performed in an end-to- side fashion using running 6-0 Prolene sutures. Of note, the vein graft to the posterior lateral branch came off the lateral right side of the ascending aorta. One liter of warm blood was delivered in retrograde fashion. Both lidocaine and magnesium were administered as well. The cross-clamp was removed. The grafts were de-aired in the standard fashion. Distal anastomoses were inspected and appeared to be hemostatic. Temporary atrial and ventricular pacing wires were placed and brought through the skin. The patient was then weaned off cardiopulmonary bypass. He without difficulty. Followup transesophageal echocardiogram confirmed preserved ejection fraction and no change in his trace mitral regurgitation. Protamine was administered. There were no adverse reactions. The remaining cannulas were then removed. The mediastinum was copiously irrigated with warm saline solution. All surgical sites were inspected and appeared to be hemostatic. Soft tissues were reapproximated over the ascending aorta as well as over the apex of the heart. Straight 32-Upper [place] chest tubes were placed and directed into both the left pleural space and mediastinum. These were all secured to the skin using sutures. The sternum was then reapproximated using stainless steel wires in a figure of eight fashion. At the completion of the closure, the sternum was well aligned. The remainder of the wound was closed in layers. A sterile dressing was applied. The patient appeared to tolerate the procedure well. There were no immediate complications. He did not require any blood products. He was not on any pressor support. He returned to the ICU in critical but stable condition. MMODL / IJN: [id number] / MTDD
[2018-08-07] MEDS: ACETAMINOPHEN IV (For NPO) 1,000 MG in EMPTY BAG 1 BAG IVPB SCH ×2 (17:25→23:31)
[2018-08-07 17:30] LABS: Glucose,Whole Blood 146 mg/dL (75-99)
[2018-08-07 18:09] LABS: Basophils % (A) 0 %; Eosinophils # (A) 0.1 k/uL (0-0.7); Eosinophils % (A) 1 %; HCT 31.2 % (39.0-53.0); HGB 10.4 gm/dL (13.0-17.5); Lymphocytes # (A) 0.7 k/uL (1.0-4.8); Lymphocytes % (A) 8 %; MCHC 33.2 g/dL (31.0-37.0); MCV 93.3 fL (80.0-100.0); Mean Platelet Volume 7.8; Monocytes # (A) 0.5 k/uL (0-1.0); Monocytes % (A) 6 %; Neutrophils # (A) 6.9 k/uL (1.3-7.7); Neutrophils % (A) 84 %; Platelet Count 151 k/uL (150-450); RBC 3.34 m/uL (4.30-5.90); RDW 12.9 % (11.5-15.5); WBC 8.2 k/uL (3.8-10.6)
[2018-08-07 18:13] LABS: Glucose,Whole Blood 138 mg/dL (75-99)
[2018-08-07] MEDS ORDERED: INSULIN REGULAR 100 UNIT in SODIUM CHLORIDE 0.9% 100 ML IV SCH (18:15)
[2018-08-07 18:29] LABS: African American GFR (CKD) >90 (>60 ml/min/1.73 sqM); Anion Gap 6 mmol/L; Blood Urea Nitrogen 13 mg/dL (9-20); Calcium 8.5 mg/dL (8.4-10.2); Carbon Dioxide 26 mmol/L (22-30); Chloride 105 mmol/L (98-107); Glucose 135 mg/dL (74-99); Potassium 4.1 mmol/L (3.5-5.1); Sodium 137 mmol/L (137-145)
--- NOTE | 2018-08-07 18:40 | P.CONS ---
History of Present Illness - Reason for Consult Consult date: 08/07/18 medical management Requesting physician: Avel Avitia - Chief Complaint four-vessel CABG - History of Present Illness this is a pleasant 78-year-old gentleman well known to my practice, underlying history of CAD, prior cardiac stents, CHF, prostate cancer 2010, obstructive sleep apnea, admitted to ICU secondary to CABG procedure. He underwent a left cardiac cath 08/01/2018, after he a positive stress test suggestive off inferolateral reversible defect and fixed defect hypokinesia. He has previous interventions involving the LAD distal RCA PLB branch of RCA between 2001 and 2006.last cardiac cath showed 80% stenoses of the stented segment RCA, mid LAD stented with 50% in-stent stenosis, distal aspect of the stent was a 90% stenosis obtuse marginal branch 70% stenosis another mid lesion of 70-80% stenosis left main 25-30% and has a distal 25% lesion,. Patient underwentfour- vessel CABG on 08/07/2018by Dr. Avitia, requiring BLACKWELL to the LAD, saphenous vein graft to obtuse marginal artery, saphenous vein graft to posterior descending artery saphenous vein graft to posterolateral branch of the right coronary artery. Patient currently is in ICU with mechanical ventilation receiving Levophed dripand nitro drip amiodarone dripd weaning parameters for sedation. Attempt to extubate him later tonight, senior quality assurance specialist Dr. Carlin Review of Systems ROS unobtainable: due to endotracheal tube, due to mental status Gastrointestinal: Reports as per HPI Genitourinary: Reports as per HPI Musculoskeletal: Reports as per HPI Integumentary: Reports as per HPI Neurological: Reports as per HPI Psychiatric: Reports as per HPI Endocrine: Reports as per HPI Hematologic/Lymphatic: Reports as per HPI Allergic/Immunologic: Reports as per HPI Past Medical History Past Medical History: Coronary Artery Disease (CAD), Cancer, Chest Pain / Angina, Heart Failure, Hypertension, Myocardial Infarction (PR), Osteoarthritis (OA), Prostate Disorder, Sleep Apnea/CPAP/BIPAP Additional Past Medical History / Comment(s): MIx3,prostate CA approx 2011-tx ra diation,uses cpap. Last Myocardial Infarction Date:: unk History of Any Multi-Drug Resistant Organisms: None Reported Past Surgical History: Heart Catheterization, Heart Catheterization With Stent, Hernia Repair Additional Past Surgical History / Comment(s): heart stents x7,7 hernia surgeries,3 shoulder surgeries,[place] cataracts Past Anesthesia/Blood Transfusion Reactions: No Reported Reaction Additional Past Anesthesia/Blood Transfusion Reaction / Comm: "a little goes a long ways",no hx blood transfusion Date of Last Stent Placement:: 2003 Smoking Status: Never smoker - Past Family History Mother Family Medical History: No Reported History Daughter(s) Family Medical History: Cancer Additional Family Medical History / Comment(s): breast CA Medications and Allergies Home Medications Medication Instructions Recorded Confirmed Type Aspirin [Adult Low Dose Aspirin EC] 81 mg PO DAILY 07/27/18 08/07/18 History Atenolol [Tenormin] 25 mg PO HS 07/27/18 08/07/18 History Ezetimibe [Zetia] 10 mg PO Q48H 07/27/18 08/07/18 History Lisinopril [Zestril] 10 mg PO DAILY 07/27/18 08/07/18 History Allergies Allergy/AdvReac Type Severity Reaction Status Date / Time codeine Allergy Nausea & Verified 08/07/18 10:19 Vomiting latex Allergy Anaphylaxis Verified 08/07/18 10:19 Physical Exam Vitals: Vital Signs Temp Pulse Pulse Resp BP BP Pulse Ox 08/07/18 18:00 98.4 F 79 14 96 08/07/18 17:45 78 17 95 08/07/18 17:30 76 15 93 L 08/07/18 17:15 75 17 93 L 08/07/18 17:00 97.1 F L 74 15 98 08/07/18 16:45 73 12 92 L 08/07/18 16:30 76 14 95 08/07/18 16:21 75 08/07/18 16:15 76 14 98 08/07/18 16:06 77 08/07/18 16:00 95.7 F L 76 13 94 L 08/07/18 15:45 75 14 98 08/07/18 15:30 73 14 100 08/07/18 15:15 71 14 100 08/07/18 15:00 95.7 F L 70 14 100 08/07/18 14:55 16 08/07/18 06:14 97.6 F 84 17 184/104 156/106 97 Intake and Output 08/07/18 08/07/18 08/07/18 06:59 14:59 22:59 Intake Total 100 32 463.662 Output Total 1900 1250 Balance 100 -5955 -786.338 Intake: IV 100 32 416 ACETAMINOPHEN IV (For NPO 100 ) 1,000 mg In Empty Bag 1 bag @ 400 mls/hr IVPB Q6HR JASPAL Rx#:[id number] CO/CI 80 Lactated Ringers 1,000 ml 200 @ 50 mls/hr IV .Q20H JASPAL Rx#:[id number] Pressure Bag 36 Intake, IV Titration 47.662 Amount Clevidipine Butyrate 25 1.733 mg In Empty Bag 1 bag @ 1 MG/HR 2 mls/hr IV .Q24H JASPAL Rx#:[id number] Propofol 1,000 mg In 45.929 Empty Bag 1 bag @ Titrate IV .Q0M JASPAL Rx#: [id number] Output: Chest Tube Drainage 180 Left Pleural 40 Mediastinal x2 140 Urine 700 1070 Estimated Blood Loss 1200 Other: Voiding Method Indwelling Catheter Weight 74.5 kg ABP, PAP, CO, CI - Last 8 Hours Arterial Blood Pressure 129/69 Arterial Blood Pressure 125/72 Arterial Blood Pressure 119/67 Arterial Blood Pressure 111/58 Arterial Blood Pressure 102/60 Arterial Blood Pressure 105/58 Arterial Blood Pressure 139/76 Arterial Blood Pressure 140/75 Arterial Blood Pressure 130/67 Arterial Blood Pressure 135/71 Arterial Blood Pressure 144/77 Arterial Blood Pressure 136/74 Arterial Blood Pressure 132/70 Pulmonary Artery Pressure 31/18 Pulmonary Artery Pressure 33/20 Pulmonary Artery Pressure 35/19 Pulmonary Artery Pressure 32/18 Pulmonary Artery Pressure 31/20 Pulmonary Artery Pressure 29/23 Pulmonary Artery Pressure 35/24 Pulmonary Artery Pressure 28/19 Pulmonary Artery Pressure 32/20 Pulmonary Artery Pressure 30/20 Pulmonary Artery Pressure 31/22 Pulmonary Artery Pressure 32/22 Pulmonary Artery Pressure 30/19 Cardiac Output 4.4 Cardiac Output 3.7 Cardiac Output 3.7 Cardiac Output 4.3 Cardiac Output 4.7 Cardiac Index 2.4 Cardiac Index 2 Cardiac Index 2 Cardiac Index 2.3 Cardiac Index 2.6 patient sedated, unable to complete full neuro exam - Constitutional General appearance: no acute distress - EENT Eyes: anicteric sclerae, normal appearance ENT: NA/AT (endotracheal tube) - Neck Thyroid: bilateral: normal size - Respiratory chest tube left and right Respiratory: bilateral: rhonchi - Cardiovascular Rhythm: regular Heart sounds: normal: S1, S2 Abnormal Heart Sounds: no systolic murmur, no diastolic murmur, no rub, no S3 Gallop, no S4 Gallop, no click, no other - Gastrointestinal General gastrointestinal: normal bowel sounds, soft - Integumentary Integumentary: decreased turgor, normal - Psychiatric sedated on vent Results CBC & Chem 7: 08/07/18 18:00 08/07/18 14:59 Labs: Abnormal Lab Results - Last 24 Hours (Table) 08/01/18 08/07/18 08/07/18 Range/Units 17:05 08:40 10:08 RBC (4.30-5.90) m/uL Hgb (13.0-17.5) gm/dL Hct (39.0-53.0) % Plt Count (150-450) k/uL Lymphocytes # (1.0-4.8) k/uL APTT (22.0-30.0) sec ABG pH (7.35-7.45) ABG pCO2 (35-45) mmHg ABG pO2 156 H 118 H (83-108) mmHg ABG HCO3 26 H (21-25) mmol/L ABG Total CO2 27 H 26 H (19-24) mmol/L ABG O2 Saturation 99.8 H 99.2 H (94-97) % ABG Hematocrit (34.0-46.0) % ABG Sodium (135-146) mmol/L ABG Potassium (3.4-4.5) mmol/L ABG Ionized Calcium (4.5-5.3) mg/dL ABG Glucose 116 H 145 H (75-99) mg/dL ABG Lactic Acid (0.5-1.6) mmol/L Hemoglobin 12.7 L 12.1 L (13.0-17.5) gm/dL Chloride (98-107) mmol/L POC Glucose (mg/dL) (75-99) mg/dL Ionized Calcium [place] (4.5-5.3) mg/dL Magnesium (1.6-2.3) mg/dL ALT (21-72) U/L Alkaline Phosphatase (38-126) U/L Total Protein (6.3-8.2) g/dL Albumin (3.5-5.0) g/dL Arterial Blood Potassium (3.4-4.5) mmol/L Arterial Blood Glucose 116 H 145 H (75-99) mg/dL Crossmatch See Detail 08/07/18 08/07/18 08/07/18 Range/Units 11:03 11:33 12:02 RBC (4.30-5.90) m/uL Hgb (13.0-17.5) gm/dL Hct (39.0-53.0) % Plt Count (150-450) k/uL Lymphocytes # (1.0-4.8) k/uL APTT (22.0-30.0) sec ABG pH (7.35-7.45) ABG pCO2 (35-45) mmHg ABG pO2 334 H 274 H 396 H (83-108) mmHg ABG HCO3 (21-25) mmol/L ABG Total CO2 25 H 25 H 26 H (19-24) mmol/L ABG O2 Saturation 100.0 H 100.0 H 100.0 H (94-97) % ABG Hematocrit 26 L 27 L 27 L (34.0-46.0) % ABG Sodium 130 L 131 L 134 L (135-146) mmol/L ABG Potassium 5.8 H 6.2 H* 5.5 H (3.4-4.5) mmol/L ABG Ionized Calcium 4.1 L 4.2 L 4.2 L (4.5-5.3) mg/dL ABG Glucose 231 H 236 H 197 H (75-99) mg/dL ABG Lactic Acid 1.8 H (0.5-1.6) mmol/L Hemoglobin 8.6 L 8.7 L 8.6 L (13.0-17.5) gm/dL Chloride (98-107) mmol/L POC Glucose (mg/dL) (75-99) mg/dL Ionized Calcium [place] (4.5-5.3) mg/dL Magnesium (1.6-2.3) mg/dL ALT (21-72) U/L Alkaline Phosphatase (38-126) U/L Total Protein (6.3-8.2) g/dL Albumin (3.5-5.0) g/dL Arterial Blood Potassium 5.8 H 6.2 H* 5.5 H (3.4-4.5) mmol/L Arterial Blood Glucose 231 H 236 H 197 H (75-99) mg/dL Crossmatch 08/07/18 08/07/18 08/07/18 Range/Units 12:53 13:41 14:59 RBC 3.02 L (4.30-5.90) m/uL Hgb 9.6 L D (13.0-17.5) gm/dL Hct 28.0 L (39.0-53.0) % Plt Count 119 L D (150-450) k/uL Lymphocytes # 0.7 L (1.0-4.8) k/uL APTT (22.0-30.0) sec ABG pH 7.34 L 7.34 L (7.35-7.45) ABG pCO2 (35-45) mmHg ABG pO2 288 H 242 H (83-108) mmHg ABG HCO3 (21-25) mmol/L ABG Total CO2 25 H 26 H (19-24) mmol/L ABG O2 Saturation 100.0 H 100.0 H (94-97) % ABG Hematocrit 24 L 28 L (34.0-46.0) % ABG Sodium (135-146) mmol/L ABG Potassium 4.6 H (3.4-4.5) mmol/L ABG Ionized Calcium 4.2 L 4.0 L (4.5-5.3) mg/dL ABG Glucose 158 H 143 H (75-99) mg/dL ABG Lactic Acid 3.1 H* 2.2 H* (0.5-1.6) mmol/L Hemoglobin 7.8 L 9.2 L (13.0-17.5) gm/dL Chloride (98-107) mmol/L POC Glucose (mg/dL) (75-99) mg/dL Ionized Calcium [place] (4.5-5.3) mg/dL Magnesium (1.6-2.3) mg/dL ALT (21-72) U/L Alkaline Phosphatase (38-126) U/L Total Protein (6.3-8.2) g/dL Albumin (3.5-5.0) g/dL Arterial Blood Potassium 4.6 H (3.4-4.5) mmol/L Arterial Blood Glucose 158 H 143 H (75-99) mg/dL Crossmatch 08/07/18 08/07/18 08/07/18 Range/Units 14:59 14:59 15:25 RBC (4.30-5.90) m/uL Hgb (13.0-17.5) gm/dL Hct (39.0-53.0) % Plt Count (150-450) k/uL Lymphocytes # (1.0-4.8) k/uL APTT 31.2 H (22.0-30.0) sec ABG pH (7.35-7.45) ABG pCO2 49 H (35-45) mmHg ABG pO2 303 H (83-108) mmHg ABG HCO3 27 H (21-25) mmol/L ABG Total CO2 28 H (19-24) mmol/L ABG O2 Saturation 99.7 H (94-97) % ABG Hematocrit (34.0-46.0) % ABG Sodium (135-146) mmol/L ABG Potassium (3.4-4.5) mmol/L ABG Ionized Calcium (4.5-5.3) mg/dL ABG Glucose (75-99) mg/dL ABG Lactic Acid (0.5-1.6) mmol/L Hemoglobin (13.0-17.5) gm/dL Chloride 108 H (98-107) mmol/L POC Glucose (mg/dL) (75-99) mg/dL Ionized Calcium [place] 5.4 H (4.5-5.3) mg/dL Magnesium 2.5 H (1.6-2.3) mg/dL ALT 18 L (21-72) U/L Alkaline Phosphatase 24 L (38-126) U/L Total Protein 4.3 L (6.3-8.2) g/dL Albumin 2.7 L (3.5-5.0) g/dL Arterial Blood Potassium (3.4-4.5) mmol/L Arterial Blood Glucose (75-99) mg/dL Crossmatch 08/07/18 08/07/18 08/07/18 Range/Units 16:01 17:19 18:00 RBC 3.34 L (4.30-5.90) m/uL Hgb 10.4 L (13.0-17.5) gm/dL Hct 31.2 L (39.0-53.0) % Plt Count (150-450) k/uL Lymphocytes # 0.7 L (1.0-4.8) k/uL APTT (22.0-30.0) sec ABG pH (7.35-7.45) ABG pCO2 (35-45) mmHg ABG pO2 (83-108) mmHg ABG HCO3 (21-25) mmol/L ABG Total CO2 (19-24) mmol/L ABG O2 Saturation (94-97) % ABG Hematocrit (34.0-46.0) % ABG Sodium (135-146) mmol/L ABG Potassium (3.4-4.5) mmol/L ABG Ionized Calcium (4.5-5.3) mg/dL ABG Glucose (75-99) mg/dL ABG Lactic Acid (0.5-1.6) mmol/L Hemoglobin (13.0-17.5) gm/dL Chloride (98-107) mmol/L POC Glucose (mg/dL) 100 H 146 H (75-99) mg/dL Ionized Calcium [place] (4.5-5.3) mg/dL Magnesium (1.6-2.3) mg/dL ALT (21-72) U/L Alkaline Phosphatase (38-126) U/L Total Protein (6.3-8.2) g/dL Albumin (3.5-5.0) g/dL Arterial Blood Potassium (3.4-4.5) mmol/L Arterial Blood Glucose (75-99) mg/dL Crossmatch 08/07/18 Range/Units 18:01 RBC (4.30-5.90) m/uL Hgb (13.0-17.5) gm/dL Hct (39.0-53.0) % Plt Count (150-450) k/uL Lymphocytes # (1.0-4.8) k/uL APTT (22.0-30.0) sec ABG pH (7.35-7.45) ABG pCO2 (35-45) mmHg ABG pO2 (83-108) mmHg ABG HCO3 (21-25) mmol/L ABG Total CO2 (19-24) mmol/L ABG O2 Saturation (94-97) % ABG Hematocrit (34.0-46.0) % ABG Sodium (135-146) mmol/L ABG Potassium (3.4-4.5) mmol/L ABG Ionized Calcium (4.5-5.3) mg/dL ABG Glucose (75-99) mg/dL ABG Lactic Acid (0.5-1.6) mmol/L Hemoglobin (13.0-17.5) gm/dL Chloride (98-107) mmol/L POC Glucose (mg/dL) 138 H (75-99) mg/dL Ionized Calcium [place] (4.5-5.3) mg/dL Magnesium (1.6-2.3) mg/dL ALT (21-72) U/L Alkaline Phosphatase (38-126) U/L Total Protein (6.3-8.2) g/dL Albumin (3.5-5.0) g/dL Arterial Blood Potassium (3.4-4.5) mmol/L Arterial Blood Glucose (75-99) mg/dL Crossmatch Assessment and Plan Plan: 1. CAD with 4 vessel disease requiring quadruple bypass on 08/07/2018 BLACKWELL to the LAD, saphenous vein graft to obtuse marginal artery, saphenous vein graft to posterior descending artery, saphenous vein graft to posterolateral branch of RCA patient currently is in ICU receiving mechanical ventilation, attempt to wean off ventilation tonight, senior quality assurance specialist with Dr. Vega would anticipate any blood losses and complications for CABG, thru close monitoring continue on supportive treatments, pressors, nitro drip, antiarrhythmics, clevidipine, continue maintenance medications Zetia,Lopressor, Protonix lisinopril and aspirin on hold until blood pressure stabilizes 2. CAD with prior history with 7 cardiac stents between [id number] 3.history of diastolic CHF, with EF 50-55% July 2018, normal right medical systolic pressure, has mild MR and mild TR, moderate aortic stenosis 4. Moderate aortic stenosis with peak gradient across the valve of 38 mmhg/20 mmHg. surveilance thru echo as OP 5. History of prostate cancer, with prior radiation treatment, no active treatments ongoing 6. History of obstructive sleep apnea, on CPAP device at home 7 hypertension, would resume him lisinopril once blood pressure stabilizes 8. gi prophylaxis- protonix /stool softeners 9. dvt prophylaxis heparin SQ
--- NOTE | 2018-08-07 19:05 | P.CNPUL ---
History of Present Illness Consult date: 08/07/18 Chief complaint: Post coronary artery bypass surgery, ventilator management History of present illness: 6-year-old male patient with established coronary artery disease, previous coronary stents also known history of obstructive sleep apnea, who underwent a cardiac catheterization on 08/01/2018 following a positive stress test. The patient was found to have significant disease as noted in the cardiac catheterization. The patient was taken to the operating room to undergo coronary artery bypass surgery. The surgery was done and the patient was brought into the intensive care unit. Immediately after arrival to the ICU, it was noted that the patient's orogastric tube was in the left main stem bronchus. The NG tube was repositioned. Hemodynamically the patient is doing well. The patient has a cardiac output of 4.4 with an index of 2.4. The pulmonary artery pressures are 37/17. He has 2 mediastinal chest tube and the patient also has a left pleural chest tube. Output is minimal at this point in time and there is no evidence of any air leak. The patient is producing adequate amount of urine output. The patient is on a mechanical ventilator. He is on a assist-control mode and FiO2 has been drop from 100% on to 50% based on the pH of 7.35 with a pCO2 of 39 and pO2 of 303. The patient is on a Diprivan drip for sedation and the patient is gradually being aroused and weaned off the sedation for now. Producing adequate amount of urine output. Hemodynamically stable at this point in time. No other significant events otherwise. Note that the patient has history of hypertension, hyperlipidemia, prostate cancer and a previous prostate radiation therapy around 8 years ago, obstructive sleep apnea utilizes CPAP. Th e patient was found to have RCA stenosis 80% with a PLV stenosis 90% mid LAD stenosis of 95% and circumflex stenosis of 75%. Review of Systems ROS unobtainable: due to endotracheal tube Past Medical History Past Medical History: Coronary Artery Disease (CAD), Cancer, Chest Pain / Angina, Heart Failure, Hypertension, Myocardial Infarction (PR), Osteoarthritis (OA), Prostate Disorder, Sleep Apnea/CPAP/BIPAP Additional Past Medical History / Comment(s): MIx3,prostate CA approx 2011-tx radiation,uses cpap. Last Myocardial Infarction Date:: unk History of Any Multi-Drug Resistant Organisms: None Reported Past Surgical History: Heart Catheterization, Heart Catheterization With Stent, Hernia Repair Additional Past Surgical History / Comment(s): heart stents x7,7 hernia surgeries,3 shoulder surgeries,[place] cataracts Past Anesthesia/Blood Transfusion Reactions: No Reported Reaction Additional Past Anesthesia/Blood Transfusion Reaction / Comment(s): "a little goes a long ways",no hx blood transfusion Date of Last Stent Placement:: 2003 Smoking Status: Never smoker - Past Family History Mother Family Medical History: No Reported History Daughter(s) Family Medical History: Cancer Additional Family Medical History / Comment(s): breast CA Medications and Allergies Home Medications Medication Instructions Recorded Confirmed Type Aspirin [Adult Low Dose Aspirin EC] 81 mg PO DAILY 07/27/18 08/07/18 History Atenolol [Tenormin] 25 mg PO HS 07/27/18 08/07/18 History Ezetimibe [Zetia] 10 mg PO Q48H 07/27/18 08/07/18 History Lisinopril [Zestril] 10 mg PO DAILY 07/27/18 08/07/18 History Allergies Allergy/AdvReac Type Severity Reaction Status Date / Time codeine Allergy Nausea & Verified 08/07/18 10:19 Vomiting latex Allergy Anaphylaxis Verified 08/07/18 10:19 Physical Exam Vitals: Vital Signs Temp Pulse Pulse Resp BP BP Pulse Ox 08/07/18 18:00 98.4 F 79 14 96 08/07/18 17:45 78 17 95 08/07/18 17:30 76 15 93 L 08/07/18 17:15 75 17 93 L 08/07/18 17:00 97.1 F L 74 15 98 08/07/18 16:45 73 12 92 L 08/07/18 16:30 76 14 95 08/07/18 16:21 75 08/07/18 16:15 76 14 98 08/07/18 16:06 77 08/07/18 16:00 95.7 F L 76 13 94 L 08/07/18 15:45 75 14 98 08/07/18 15:30 73 14 100 08/07/18 15:15 71 14 100 08/07/18 15:00 95.7 F L 70 14 100 08/07/18 14:55 16 08/07/18 06:14 97.6 F 84 17 184/104 156/106 97 Intake and Output 08/07/18 08/07/1808/07/19 06:59 14:59 22:59 Intake Total 100 32 468.448 Output Total 1900 1250 Balance 100 -1368 -781.552 Intake: IV 100 32 416 ACETAMINOPHEN IV (For NPO 100 ) 1,000 mg In Empty Bag 1 bag @ 400 mls/hr IVPB Q6HR [facility] Rx#:[id number] CO/CI 80 Lactated Ringers 1,000 ml 200 @ 50 mls/hr IV .Q20H [facility] Rx#:[id number] Pressure Bag 36 Intake, IV Titration 52.448 Amount Clevidipine Butyrate 25 5.200 mg In Empty Bag 1 bag @ 1 MG/HR 2 mls/hr IV .Q24H [facility] Rx#:[id number] Insulin Regular 100 unit 0.202 In Sodium Chloride 0.9% 100 ml @ Per Protocol IV .Q0M [facility] Rx#:[id number] Propofol 1,000 mg In 47.046 Empty Bag 1 bag @ Titrate IV .Q0M [facility] Rx#: [id number] Output: Chest Tube Drainage 180 Left Pleural 40 Mediastinal x2 140 Urine 700 1070 Estimated Blood Loss 1200 Other: Voiding Method Indwelling Catheter Weight 74.5 kg ABP, PAP, CO, CI - Last 8 Hours Arterial Blood Pressure 129/69 Arterial Blood Pressure 125/72 Arterial Blood Pressure 119/67 Arterial Blood Pressure 111/58 Arterial Blood Pressure 102/60 Arterial Blood Pressure 105/58 Arterial Blood Pressure 139/76 Arterial Blood Pressure 140/75 Arterial Blood Pressure 130/67 Arterial Blood Pressure 135/71 Arterial Blood Pressure 144/77 Arterial Blood Pressure 136/74 Arterial Blood Pressure 132/70 Pulmonary Artery Pressure 31/18 Pulmonary Artery Pressure 33/20 Pulmonary Artery Pressure 35/19 Pulmonary Artery Pressure 32/18 Pulmonary Artery Pressure 31/20 Pulmonary Artery Pressure 29/23 Pulmonary Artery Pressure 35/24 Pulmonary Artery Pressure 28/19 Pulmonary Artery Pressure 32/20 Pulmonary Artery Pressure 30/20 Pulmonary Artery Pressure 31/22 Pulmonary Artery Pressure 32/22 Pulmonary Artery Pressure 30/19 Cardiac Output 4.4 Cardiac Output 3.7 Cardiac Output 3.7 Cardiac Output 4.3 Cardiac Output 4.7 Cardiac Index 2.4 Cardiac Index 2 Cardiac Index 2 Cardiac Index 2.3 Cardiac Index 2.6 Urine appearance, comfortable likely distress and he is being gradually weaned off the sedation. Head exam was generally normal. There was no scleral icterus or corneal arcus. Mucous membranes were moist. Neck was supple and without jugular venous distension, thyromegaly, or carotid bruits. Carotids were easily palpable bilaterally. There was no adenopathy. The patient has a right IJ [place] catheter. Lungs were clear to auscultation and percussion, and with normal diaphragmatic excursion. No wheezes or rales were noted. Cardiac exam revealed the PMI to be normally situated and sized. The rhythm was regular and no extrasystoles were noted during several minutes of auscultation. The first and second heart sounds were normal and physiologic splitting of the second heart sound was noted. There were no murmurs, rubs, clicks, or gallops. The patient has 2 mediastinal and 1 left pleural chest tube. Sternum stable clean and intact and surgical wound site is dry clean and intact. Abdominal exam revealed normal bowel sounds. The abdomen was soft, non-tender, and without masses, organomegaly, or appreciable enlargement of the abdominal aorta. Examination of the extremities revealed easily palpable radial, femoral and pedal pulses. There was no cyanosis, clubbing or edema. Examination of the skin revealed no evidence of significant rashes, suspicious appearing nevi or other concerning lesions. Neurologically the patient is still sedated under the effect of the prevent. Results - Laboratory Findings CBC and BMP: 08/07/18 18:00 08/07/18 18:00 ABG ABG pH 7.35 (7.35-7.45) 08/07/18 15:25 ABG pCO2 49 mmHg (35-45) H 08/07/18 15:25 ABG pO2 303 mmHg (83-108) H 08/07/18 15:25 ABG O2 Saturation 99.7 % (94-97) H 08/07/18 15:25 PT/INR, D-dimer PT 11.9 sec (9.0-12.0) 08/07/18 14:59 INR 1.1 (<1.2) 08/07/18 14:59 Abnormal lab findings: Abnormal Labs 08/01/18 08/07/18 08/07/18 17:05 08:40 10:08 RBC Hgb Hct Plt Count Lymphocytes # APTT ABG pH ABG pCO2 ABG pO2 156 H 118 H ABG HCO3 26 H ABG Total CO2 27 H 26 H ABG O2 Saturation 99.8 H 99.2 H ABG Hematocrit ABG Sodium ABG Potassium ABG Ionized Calcium ABG Glucose 116 H 145 H ABG Lactic Acid Hemoglobin 12.7 L 12.1 L Chloride Glucose POC Glucose (mg/dL) Ionized Calcium Z[place]ma Magnesium ALT Alkaline Phosphatase Total Protein Albumin Arterial Blood Potassium Arterial Blood Glucose 116 H 145 H Crossmatch See Detail 08/07/18 08/07/18 08/07/18 11:03 11:33 12:02 RBC Hgb Hct Plt Count Lymphocytes # APTT ABG pH ABG pCO2 ABG pO2 334 H 274 H 396 H ABG HCO3 ABG Total CO2 25 H 25 H 26 H ABG O2 Saturation 100.0 H 100.0 H 100.0 H ABG Hematocrit 26 L 27 L 27 L ABG Sodium 130 L 131 L 134 L ABG Potassium 5.8 H 6.2 H* 5.5 H ABG Ionized Calcium 4.1 L 4.2 L 4.2 L ABG Glucose 231 H 236 H 197 H ABG Lactic Acid 1.8 H Hemoglobin 8.6 L 8.7 L 8.6 L Chloride Glucose POC Glucose (mg/dL) Ionized Calcium Z[place]ma Magnesium ALT Alkaline Phosphatase Total Protein Albumin Arterial Blood Potassium 5.8 H 6.2 H* 5.5 H Arterial Blood Glucose 231 H 236 H 197 H Crossmatch 08/07/18 08/07/18 08/07/18 12:53 13:41 14:59 RBC 3.02 L Hgb 9.6 L D Hct 28.0 L Plt Count 119 L D Lymphocytes # 0.7 L APTT ABG pH 7.34 L 7.34 L ABG pCO2 ABG pO2 288 H 242 H ABG HCO3 ABG Total CO2 25 H 26 H ABG O2 Saturation 100.0 H 100.0 H ABG Hematocrit 24 L 28 L ABG Sodium ABG Potassium 4.6 H ABG Ionized Calcium 4.2 L 4.0 L ABG Glucose 158 H 143 H ABG Lactic Acid 3.1 H* 2.2 H* Hemoglobin 7.8 L 9.2 L Chloride Glucose POC Glucose (mg/dL) Ionized Calcium Z[place]ma Magnesium ALT Alkaline Phosphatase Total Protein Albumin Arterial Blood Potassium 4.6 H Arterial Blood Glucose 158 H 143 H Crossmatch 08/07/18 08/07/18 08/07/18 14:59 14:59 15:25 RBC Hgb Hct Plt Count Lymphocytes # APTT 31.2 H ABG pH ABG pCO2 49 H ABG pO2 303 H ABG HCO3 27 H ABG Total CO2 28 H ABG O2 Saturation 99.7 H ABG Hematocrit ABG Sodium ABG Potassium ABG Ionized Calcium ABG Glucose ABG Lactic Acid Hemoglobin Chloride 108 H Glucose POC Glucose (mg/dL) Ionized Calcium [place] 5.4 H Magnesium 2.5 H ALT 18 L Alkaline Phosphatase 24 L Total Protein 4.3 L Albumin 2.7 L Arterial Blood Potassium Arterial Blood Glucose Crossmatch 08/07/18 08/07/18 08/07/18 16:01 17:19 18:00 RBC 3.34 L Hgb 10.4 L Hct 31.2 L Plt Count Lymphocytes # 0.7 L APTT ABG pH ABG pCO2 ABG pO2 ABG HCO3 ABG Total CO2 ABG O2 Saturation ABG Hematocrit ABG Sodium ABG Potassium ABG Ionized Calcium ABG Glucose ABG Lactic Acid Hemoglobin Chloride Glucose POC Glucose (mg/dL) 100 H 146 H Ionized Calcium [place] Magnesium ALT Alkaline Phosphatase Total Protein Albumin Arterial Blood Potassium Arterial Blood Glucose Crossmatch 08/07/18 08/07/18 18:00 18:01 RBC Hgb Hct Plt Count Lymphocytes # APTT ABG pH ABG pCO2 ABG pO2 ABG HCO3 ABG Total CO2 ABG O2 Saturation ABG Hematocrit ABG Sodium ABG Potassium ABG Ionized Calcium ABG Glucose ABG Lactic Acid Hemoglobin Chloride Glucose 135 H POC Glucose (mg/dL) 138 H Ionized Calcium [place] Magnesium ALT Alkaline Phosphatase Total Protein Albumin Arterial Blood Potassium Arterial Blood Glucose Crossmatch - Diagnostic Findings Chest x-ray: image reviewed Assessment and Plan Plan: 1 symptomatic multivessel coronary artery disease. The patient is post cardiac bypass surgery and the patient is postop day #0. The patient is currently doing well and hemodynamically stable. He has an adequate cardiac output and index on no pressors for the time being. The patient underwent [place] to LAD and saphenous vein graft to obtuse marginal and PDA and posterior lateral branch of the right coronary artery. 2 post thoracotomy, the patient has 2 mediastinal and 1 pleural chest tube in addition to that the patient is currently intubated on a mechanical ventilator as is being weaned off the ventilator for now. This is an expected outcome of surgery/post thoracotomy 3 obstructive sleep apnea maintained on CPAP therapy on outpatient basis 4 hypertension, history of 5 hyperlipidemia 6 prostate cancer previous radiation therapy to his prostate Plan Continue vent support. The patient is on assist control mode of ventilation with a tidal volume of 400 and rate of 14. FiO2 has been drop down to 40% with a PEEP of 5. Blood gases was noted. Chest x-ray was noted. NG tube was repositioned. Wean off propofol. Check the patient's weaning parameters. Shortness to wean. We'll give a spontaneous breathing trial and I would anticipate extubation within the next few hours. The patient is doing well. He is hemodynamically stable. Cardiac rhythm is sinus. Output from the chest tubes are minimal. No evidence of any air leaks. We'll continue to follow make further recommendations based on his progress.
[2018-08-07 19:10] LABS: Glucose,Whole Blood 145 mg/dL (75-99)
[2018-08-07 19:22] LABS: ABG Base Excess 1.9 mmol/L; ABG HCO3 27 mmol/L (21-25); ABG Oxygen Saturation 95.1 % (94-97); ABG PCO2 42 mmHg (35-45); ABG PH 7.41 (7.35-7.45); ABG PO2 75 mmHg (83-108); ABG TCO2 28 mmol/L (19-24)
[2018-08-07 20:09] LABS: Glucose,Whole Blood 163 mg/dL (75-99)
--- NOTE | 2018-08-07 20:15 | XR ---
EXAMINATION TYPE: XR abdomen 1V DATE OF EXAM: 08/07/2018 COMPARISON: NONE HISTORY: NG tube placement TECHNIQUE: Portable supine FINDINGS: This radiograph was centered over the epigastrium. NG tube is not visualized. IMPRESSION: NG tube not visualized.
--- NOTE | 2018-08-07 20:17 | XR ---
EXAMINATION TYPE: XR abdomen 1V DATE OF EXAM: 08/07/2018 COMPARISON: NONE HISTORY: NG tube placement TECHNIQUE: Portable supine FINDINGS: Images obtained over the epigastrium. NG tube appears to be present on the current view, it appears to be superimposed over the expected co urse of the distal thoracic esophagus and looped back upon itself to have its tip superimposed over t he expected position of the GE junction. Would suggest advancing the NG tube 6 cm distally. IMPRESSION: NG tube as above.
[2018-08-07 21:12] LABS: Glucose,Whole Blood 144 mg/dL (75-99)
[2018-08-07 21:14] LABS: Basophils % (A) 0 %; Eosinophils % (A) 0 %; HCT 33.1 % (39.0-53.0); HGB 11.4 gm/dL (13.0-17.5); Lymphocytes # (A) 0.6 k/uL (1.0-4.8); Lymphocytes % (A) 5 %; MCH 31.7 pg (25.0-35.0); MCHC 34.5 g/dL (31.0-37.0); MCV 91.9 fL (80.0-100.0); Monocytes # (A) 0.6 k/uL (0-1.0); Monocytes % (A) 5 %; Neutrophils # (A) 10.1 k/uL (1.3-7.7); Neutrophils % (A) 89 %; Platelet Count 164 k/uL (150-450); RBC 3.61 m/uL (4.30-5.90); RDW 13.6 % (11.5-15.5); WBC 11.4 k/uL (3.8-10.6)
[2018-08-07] MEDS: HEPARIN SODIUM,PORCINE 5,000 UNIT/ML 1 ML VIAL SQ SCH (21:21)
[2018-08-07 21:22] LABS: African American GFR (CKD) >90 (>60 ml/min/1.73 sqM); Anion Gap 8 mmol/L; Blood Urea Nitrogen 13 mg/dL (9-20); Calcium 8.5 mg/dL (8.4-10.2); Carbon Dioxide 25 mmol/L (22-30); Chloride 104 mmol/L (98-107); Glucose 141 mg/dL (74-99); Magnesium 1.9 mg/dL (1.6-2.3); Phosphorus 3.2 mg/dL (2.5-4.5); Potassium 3.8 mmol/L (3.5-5.1); Sodium 137 mmol/L (137-145)
[2018-08-07 22:24] LABS: Glucose,Whole Blood 134 mg/dL (75-99)
[2018-08-07] MEDS: POTASSIUM CHLORIDE 10 MEQ in WATER FOR INJECTION 1 100ML.BAG IVPB SCH ×2 (22:29→23:33)
[2018-08-07] MEDS: MAGNESIUM SULFATE-D5W PMX 1 GM in DEXTROSE/WATER 1 100ML.BAG IVPB SCH ×2 (22:29→23:33)
[2018-08-07 23:22] LABS: Glucose,Whole Blood 150 mg/dL (75-99)
[2018-08-08 00:08] LABS: Glucose,Whole Blood 162 mg/dL (75-99)
[2018-08-08 02:15] LABS: Glucose,Whole Blood 133 mg/dL (75-99)
[2018-08-08] MEDS: CLEVIDIPINE BUTYRATE 25 MG in EMPTY BAG 1 BAG IV SCH (03:32)
[2018-08-08 03:37] LABS: Glucose,Whole Blood 143 mg/dL (75-99)
[2018-08-08 04:21] LABS: Glucose,Whole Blood 130 mg/dL (75-99)
[2018-08-08 04:30] LABS: Basophils % (A) 0 %; Eosinophils % (A) 0 %; HCT 30.8 % (39.0-53.0); HGB 10.6 gm/dL (13.0-17.5); Lymphocytes # (A) 0.4 k/uL (1.0-4.8); Lymphocytes % (A) 4 %; MCH 31.6 pg (25.0-35.0); MCHC 34.3 g/dL (31.0-37.0); Mean Platelet Volume 7.5; Monocytes # (A) 0.6 k/uL (0-1.0); Monocytes % (A) 5 %; Neutrophils # (A) 10.3 k/uL (1.3-7.7); Neutrophils % (A) 90 %; Platelet Count 175 k/uL (150-450); RBC 3.35 m/uL (4.30-5.90); RDW 12.9 % (11.5-15.5); WBC 11.5 k/uL (3.8-10.6)
[2018-08-08 04:50] LABS: Ionized Calcium 4.5 mg/dL (4.5-5.3)
[2018-08-08 04:57] LABS: ALT 28 U/L (21-72); AST 47 U/L (17-59); African American GFR (CKD) >90 (>60 ml/min/1.73 sqM); Albumin 3.5 g/dL (3.5-5.0); Alkaline Phosphatase 34 U/L (38-126); Anion Gap 7 mmol/L; Blood Urea Nitrogen 13 mg/dL (9-20); Calcium 8.3 mg/dL (8.4-10.2); Carbon Dioxide 27 mmol/L (22-30); Chloride 103 mmol/L (98-107); Glucose 120 mg/dL (74-99); Magnesium 2.3 mg/dL (1.6-2.3); Phosphorus 3.2 mg/dL (2.5-4.5); Sodium 137 mmol/L (137-145); Total Bilirubin 0.7 mg/dL (0.2-1.3); Total Protein 5.3 g/dL (6.3-8.2)
[2018-08-08 05:06] LABS: Glucose,Whole Blood 139 mg/dL (75-99)
[2018-08-08] MEDS ORDERED: HYDROcodone/APAP 5-325MG 1 EACH TAB PO PRN ×2 (05:59)
[2018-08-08] MEDS ORDERED: ACETAMINOPHEN TAB 500 MG TAB PO PRN (06:32)
[2018-08-08] MEDS: KETOROLAC 30 MG/ML 1 ML VIAL IVP SCH ×3 (06:41→16:55)
[2018-08-08 06:57] LABS: Glucose,Whole Blood 144 mg/dL (75-99)
[2018-08-08 08:30] LABS: Glucose,Whole Blood 127 mg/dL (75-99)
[2018-08-08] MEDS: ASPIRIN 325 MG TAB PO SCH (08:45)
[2018-08-08] MEDS: ceFAZolin IN SWFI 2 GM/20 ML SYRINGE IVP SCH (08:46)
[2018-08-08] MEDS: HEPARIN SODIUM,PORCINE 5,000 UNIT/ML 1 ML VIAL SQ SCH ×2 (08:46→16:58)
[2018-08-08] MEDS: EZETIMIBE 10 MG TAB PO SCH (08:46)
--- NOTE | 2018-08-08 08:57 | P.PN ---
Subjective Progress Note Date: 08/08/18 Principal diagnosis: Severe triple vessel coronary artery disease. Previous medical history of coronary artery disease with myocardial infarction in the past status post multiple coronary stenting, moderate aortic stenosis on transthoracic echocardiogram but no gradient across the aortic valve on heart catheterization, hypertension, hyperlipidemia, prostate cancer status post radiation approximately 7-8 years ago, obstructive sleep apnea with home CPAP use, no tobacco dependence but long history of secondhand smoke exposure, and multiple male family members DC stiffer myocardial infarction before 70 years of age. POD#1 coronary bypass grafting 4 vessels, left internal mammary artery to the left anterior descending artery, reverse saphenous vein graft to the obtuse ma rginal artery, reverse saphenous vein graft to the posterior descending artery, reverse saphenous vein graft to the posterior lateral branch of the right coronary artery. Endoscopic harvesting of the left greater saphenous vein. Epi-aortic ultrasound. Intraoperative transesophageal echocardiogram. Postoperative acute blood loss anemia, expected outcome given hemodilution and cardiopulmonary bypass pump. The patient is currently sitting up in a recliner in the intensive care unit in no acute distress. He was successfully extubated last night at 19:45. Does complain of post surgical incision type pain, denies shortness of breath. Remains in normal sinus rhythm. Hemodynamically stable on no inotropes or pressors. Just on a touch of Cleviprex which is being weaned, and IV nitro for radial artery spasm prophylaxis. He is concerned that he is not getting quite as high on his incentive spirometry as he was preoperatively, reassured that this is normal. Otherwise no new complaints. Objective - Vital Signs Vital signs: Vital Signs Temp 97.6 F 08/08/18 04:00 Pulse 75 08/08/18 08:00 Resp 10 L 08/08/18 08:00 BP 104/69 08/08/18 04:00 Pulse Ox 96 08/08/18 08:00 Intake & Output 08/07/18 08/08/18 08/08/18 18:59 06:59 18:59 Intake Total 249.955 4511.716 100.899 Output Total 3150 2440 60 Balance -2649.552 -679.284 40.899 Weight 82.2 kg Intake: IV 448 1667 59 ACETAMINOPHEN IV (For NPO 100 100 ) 1,000 mg In Empty Bag 1 bag @ 400 mls/hr IVPB Q6HR [facility] Rx#:[id number] CO/CI 80 400 Lactated Ringers 1,000 ml 200 650 50 @ 20 mls/hr IV .Q24H JASPAL Rx#:[id number] Magnesium Sulfate-D5w Pmx 200 1 gm In Dextrose/Water 1 100ml.bag @ 100 mls/hr IVPB Q1H [facility]ASPAL Rx#: [id number] Potassium Chloride 10 meq 200 In Water For Injection 1 100ml.bag @ 100 mls/hr IVPB Q1H JASPAL Rx#: [id number] Pressure Bag 36 117 9 Intake, IV Titration 52.448 93.716 41.899 Amount Clevidipine Butyrate 25 5.200 72.034 38.667 mg In Empty Bag 1 bag @ 1 MG/HR 2 mls/hr IV .Q24H JASPAL Rx#:[id number] Insulin Regular 100 unit 0.202 21.682 3.232 In Sodium Chloride 0.9% 100 ml @ Per Protocol IV .Q0M JASPAL Rx#:[id number] Propofol 1,000 mg In 47.046 Empty Bag 1 bag @ Titrate IV .Q0M JASPAL Rx#: [id number] Output: Chest Tube Drainage 180 515 20 Left Pleural 40 305 20 Mediastinal x2 140 210 0 Urine 1770 1925 40 Estimated Blood Loss 1200 Other: Voiding Method Indwelling Catheter Indwelling Catheter ABP, PAP, CO, CI - Last Documented Arterial Blood Pressure 111/56 Pulmonary Artery Pressure 21/16 Cardiac Output 4.2 Cardiac Index 2.3 - Constitutional General appearance: Present: cooperative, no acute distress - Respiratory Details: Lungs sounds diminished bilaterally. Respirations even, nonlabored. Currently on 10 L high flow nasal cannula with oxygen saturation 92%. Only able to achieve 500 mL on his incentive spirometry. Weak cough. Mediastinal chest tube to continuous wall suction, 90 mL serosanguineous drainage overnight, 350 mL since surgery. Left pleural chest tube to continuous wall suction, 130 mL ser osanguineous overnight, 350 mL since surgery. No air leaks present. - Cardiovascular Details: S1, S2 present. Regular rate and rhythm, sinus rhythm on telemetry. Sternum stable. A/V epicardial pacemaker wires present, connected to generator, VVI mode with a backup rate 60 bpm. Palpable peripheral pulses bilaterally. No edema present. No calf pain or tenderness. Right internal jugular Eugene/Cordis, right radial arterial line present. Last CO/CI 4.2/2.3 no inotropes or pressors. Antiembolism stockings, SCDs present. Heart hugger in place with pat ient demonstrating appropriate use. - Gastrointestinal Gastrointestinal Comment(s): Abdomen soft, nontender, nondistended. Active bowel sounds present 4 quad rants. Tolerating clear liquids. Positive flatus. - Genitourinary Genitourinary Comment(s): Hanson present draining clear, yellow urine. Output 80-175 mL/h overnight. - Integumentary Integumentary Comment(s): Skin is warm and dry with evidence of good perfusion. Anterior chest incision well approximated and covered with dry intact dressing. Left lower extremity EVH site well approximated with Dermabond. - Neurologic Neurologic: Present: CNII-XII intact - Musculoskeletal Musculoskeletal: Present: generalized weakness, strength equal bilaterally - Psychiatric Psychiatric: Present: A&O x's 3, appropriate affect, intact judgment & insight - Allied health notes Allied health notes reviewed: nursing - Labs CBC & Chem 7: 08/08/18 04:15 08/08/18 04:15 Labs: Abnormal Lab Results - Last 24 Hours (Table) 08/01/18 08/07/18 08/07/18 Range/Units 17:05 08:40 10:08 WBC (3.8-10.6) k/uL RBC (4.30-5.90) m/uL Hgb (13.0-17.5) gm/dL Hct (39.0-53.0) % Plt Count (150-450) k/uL Neutrophils # (1.3-7.7) k/uL Lymphocytes # (1.0-4.8) k/uL APTT (22.0-30.0) sec ABG pH (7.35-7.45) ABG pCO2 (35-45) mmHg ABG pO2 156 H 118 H (83-108) mmHg ABG HCO3 26 H (21-25) mmol/L ABG Total CO2 27 H 26 H (19-24) mmol/L ABG O2 Saturation 99.8 H 99.2 H (94-97) % ABG Hematocrit (34.0-46.0) % ABG Sodium (135-146) mmol/L ABG Potassium (3.4-4.5) mmol/L ABG Ionized Calcium (4.5-5.3) mg/dL ABG Glucose 116 H 145 H (75-99) mg/dL ABG Lactic Acid (0.5-1.6) mmol/L Hemoglobin 12.7 L 12.1 L (13.0-17.5) gm/dL Chloride (98-107) mmol/L Glucose (74-99) mg/dL POC Glucose (mg/dL) (75-99) mg/dL Calcium (8.4-10.2) mg/dL Ionized Calcium Zulma (4.5-5.3) mg/dL Magnesium (1.6-2.3) mg/dL ALT (21-72) U/L Alkaline Phosphatase (38-126) U/L Total Protein (6.3-8.2) g/dL Albumin (3.5-5.0) g/dL Arterial Blood Potassium (3.4-4.5) mmol/L Arterial Blood Glucose 116 H 145 H (75-99) mg/dL Crossmatch See Detail 08/07/18 08/07/18 08/07/18 Range/Units 11:03 11:33 12:02 WBC (3.8-10.6) k/uL RBC (4.30-5.90) m/uL Hgb (13.0-17.5) gm/dL Hct (39.0-53.0) % Plt Count (150-450) k/uL Neutrophils # (1.3-7.7) k/uL Lymphocytes # (1.0-4.8) k/uL APTT (22.0-30.0) sec ABG pH (7.35-7.45) ABG pCO2 (35-45) mmHg ABG pO2 334 H 274 H 396 H (83-108) mmHg ABG HCO3 (21-25) mmol/L ABG Total CO2 25 H 25 H 26 H (19-24) mmol/L ABG O2 Saturation 100.0 H 100.0 H 100.0 H (94-97) % ABG Hematocrit 26 L 27 L 27 L (34.0-46.0) % ABG Sodium 130 L 131 L 134 L (135-146) mmol/L ABG Potassium 5.8 H 6.2 H* 5.5 H (3.4-4.5) mmol/L ABG Ionized Calcium 4.1 L 4.2 L 4.2 L (4.5-5.3) mg/dL ABG Glucose 231 H 236 H 197 H (75-99) mg/dL ABG Lactic Acid 1.8 H (0.5-1.6) mmol/L Hemoglobin 8.6 L 8.7 L 8.6 L (13.0-17.5) gm/dL Chloride (98-107) mmol/L Glucose (74-99) mg/dL POC Glucose (mg/dL) (75-99) mg/dL Calcium (8.4-10.2) mg/dL Ionized Calcium Zulma (4.5-5.3) mg/dL Magnesium (1.6-2.3) mg/dL ALT (21-72) U/L Alkaline Phosphatase (38-126) U/L Total Protein (6.3-8.2) g/dL Albumin (3.5-5.0) g/dL Arterial Blood Potassium 5.8 H 6.2 H* 5.5 H (3.4-4.5) mmol/L Arterial Blood Glucose 231 H 236 H 197 H (75-99) mg/dL Crossmatch 08/07/18 08/07/18 08/07/18 Range/Units 12:53 13:41 14:59 WBC (3.8-10.6) k/uL RBC 3.02 L (4.30-5.90) m/uL Hgb 9.6 L D (13.0-17.5) gm/dL Hct 28.0 L (39.0-53.0) % Plt Count 119 L D (150-450) k/uL Neutrophils # (1.3-7.7) k/uL Lymphocytes # 0.7 L (1.0-4.8) k/uL APTT (22.0-30.0) sec ABG pH 7.34 L 7.34 L (7.35-7.45) ABG pCO2 (35-45) mmHg ABG pO2 288 H 242 H (83-108) mmHg ABG HCO3 (21-25) mmol/L ABG Total CO2 25 H 26 H (19-24) mmol/L ABG O2 Saturation 100.0 H 100.0 H (94-97) % ABG Hematocrit 24 L 28 L (34.0-46.0) % ABG Sodium (135-146) mmol/L ABG Potassium 4.6 H (3.4-4.5) mmol/L ABG Ionized Calcium 4.2 L 4.0 L (4.5-5.3) mg/dL ABG Glucose 158 H 143 H (75-99) mg/dL ABG Lactic Acid 3.1 H* 2.2 H* (0.5-1.6) mmol/L Hemoglobin 7.8 L 9.2 L (13.0-17.5) gm/dL Chloride (98-107) mmol/L Glucose (74-99) mg/dL POC Glucose (mg/dL) (75-99) mg/dL Calcium (8.4-10.2) mg/dL Ionized Calcium Zulma (4.5-5.3) mg/dL Magnesium (1.6-2.3) mg/dL ALT (21-72) U/L Alkaline Phosphatase (38-126) U/L Total Protein (6.3-8.2) g/dL Albumin (3.5-5.0) g/dL Arterial Blood Potassium 4.6 H (3.4-4.5) mmol/L Arterial Blood Glucose 158 H 143 H (75-99) mg/dL Crossmatch 08/07/18 08/07/18 08/07/18 Range/Units 14:59 14:59 15:25 WBC (3.8-10.6) k/uL RBC (4.30-5.90) m/uL Hgb (13.0-17.5) gm/dL Hct (39.0-53.0) % Plt Count (150-450) k/uL Neutrophils # (1.3-7.7) k/uL Lymphocytes # (1.0-4.8) k/uL APTT 31.2 H (22.0-30.0) sec ABG pH (7.35-7.45) ABG pCO2 49 H (35-45) mmHg ABG pO2 303 H (83-108) mmHg ABG HCO3 27 H (21-25) mmol/L ABG Total CO2 28 H (19-24) mmol/L ABG O2 Saturation 99.7 H (94-97) % ABG Hematocrit (34.0-46.0) % ABG Sodium (135-146) mmol/L ABG Potassium (3.4-4.5) mmol/L ABG Ionized Calcium (4.5-5.3) mg/dL ABG Glucose (75-99) mg/dL ABG Lactic Acid (0.5-1.6) mmol/L Hemoglobin (13.0-17.5) gm/dL Chloride 108 H (98-107) mmol/L Glucose (74-99) mg/dL POC Glucose (mg/dL) (75-99) mg/dL Calcium (8.4-10.2) mg/dL Ionized Calcium Zulma 5.4 H (4.5-5.3) mg/dL Magnesium 2.5 H (1.6-2.3) mg/dL ALT 18 L (21-72) U/L Alkaline Phosphatase 24 L (38-126) U/L Total Protein 4.3 L (6.3-8.2) g/dL Albumin 2.7 L (3.5-5.0) g/dL Arterial Blood Potassium (3.4-4.5) mmol/L Arterial Blood Glucose (75-99) mg/dL Crossmatch 08/07/18 08/07/18 08/07/18 Range/Units 16:01 17:19 18:00 WBC (3.8-10.6) k/uL RBC 3.34 L (4.30-5.90) m/uL Hgb 10.4 L (13.0-17.5) gm/dL Hct 31.2 L (39.0-53.0) % Plt Count (150-450) k/uL Neutrophils # (1.3-7.7) k/uL Lymphocytes # 0.7 L (1.0-4.8) k/uL APTT (22.0-30.0) sec ABG pH (7.35-7.45) ABG pCO2 (35-45) mmHg ABG pO2 (83-108) mmHg ABG HCO3 (21-25) mmol/L ABG Total CO2 (19-24) mmol/L ABG O2 Saturation (94-97) % ABG Hematocrit (34.0-46.0) % ABG Sodium (135-146) mmol/L ABG Potassium (3.4-4.5) mmol/L ABG Ionized Calcium (4.5-5.3) mg/dL ABG Glucose (75-99) mg/dL ABG Lactic Acid (0.5-1.6) mmol/L Hemoglobin (13.0-17.5) gm/dL Chloride (98-107) mmol/L Glucose (74-99) mg/dL POC Glucose (mg/dL) 100 H 146 H (75-99) mg/dL Calcium (8.4-10.2) mg/dL Ionized Calcium Zulma (4.5-5.3) mg/dL Magnesium (1.6-2.3) mg/dL ALT (21-72) U/L Alkaline Phosphatase (38-126) U/L Total Protein (6.3-8.2) g/dL Albumin (3.5-5.0) g/dL Arterial Blood Potassium (3.4-4.5) mmol/L Arterial Blood Glucose (75-99) mg/dL Crossmatch 08/07/18 08/07/18 08/07/18 Range/Units 18:00 18:01 18:58 WBC (3.8-10.6) k/uL RBC (4.30-5.90) m/uL Hgb (13.0-17.5) gm/dL Hct (39.0-53.0) % Plt Count (150-450) k/uL Neutrophils # (1.3-7.7) k/uL Lymphocytes # (1.0-4.8) k/uL APTT (22.0-30.0) sec ABG pH (7.35-7.45) ABG pCO2 (35-45) mmHg ABG pO2 (83-108) mmHg ABG HCO3 (21-25) mmol/L ABG Total CO2 (19-24) mmol/L ABG O2 Saturation (94-97) % ABG Hematocrit (34.0-46.0) % ABG Sodium (135-146) mmol/L ABG Potassium (3.4-4.5) mmol/L ABG Ionized Calcium (4.5-5.3) mg/dL ABG Glucose (75-99) mg/dL ABG Lactic Acid (0.5-1.6) mmol/L Hemoglobin (13.0-17.5) gm/dL Chloride (98-107) mmol/L Glucose 135 H (74-99) mg/dL POC Glucose (mg/dL) 138 H 145 H (75-99) mg/dL Calcium (8.4-10.2) mg/dL Ionized Calcium Zulma (4.5-5.3) mg/dL Magnesium (1.6-2.3) mg/dL ALT (21-72) U/L Alkaline Phosphatase (38-126) U/L Total Protein (6.3-8.2) g/dL Albumin (3.5-5.0) g/dL Arterial Blood Potassium (3.4-4.5) mmol/L Arterial Blood Glucose (75-99) mg/dL Crossmatch 08/07/18 08/07/18 08/07/18 Range/Units 19:20 19:58 20:58 WBC (3.8-10.6) k/uL RBC (4.30-5.90) m/uL Hgb (13.0-17.5) gm/dL Hct (39.0-53.0) % Plt Count (150-450) k/uL Neutrophils # (1.3-7.7) k/uL Lymphocytes # (1.0-4.8) k/uL APTT (22.0-30.0) sec ABG pH (7.35-7.45) ABG pCO2 (35-45) mmHg ABG pO2 75 L (83-108) mmHg ABG HCO3 27 H (21-25) mmol/L ABG Total CO2 28 H (19-24) mmol/L ABG O2 Saturation (94-97) % ABG Hematocrit (34.0-46.0) % ABG Sodium (135-146) mmol/L ABG Potassium (3.4-4.5) mmol/L ABG Ionized Calcium (4.5-5.3) mg/dL ABG Glucose (75-99) mg/dL ABG Lactic Acid (0.5-1.6) mmol/L Hemoglobin (13.0-17.5) gm/dL Chloride (98-107) mmol/L Glucose (74-99) mg/dL POC Glucose (mg/dL) 163 H 144 H (75-99) mg/dL Calcium (8.4-10.2) mg/dL Ionized Calcium Zulma (4.5-5.3) mg/dL Magnesium (1.6-2.3) mg/dL ALT (21-72) U/L Alkaline Phosphatase (38-126) U/L Total Protein (6.3-8.2) g/dL Albumin (3.5-5.0) g/dL Arterial Blood Potassium (3.4-4.5) mmol/L Arterial Blood Glucose (75-99) mg/dL Crossmatch 08/07/18 08/07/18 08/07/18 Range/Units 21:00 21:00 22:12 WBC 11.4 H (3.8-10.6) k/uL RBC 3.61 L (4.30-5.90) m/uL Hgb 11.4 L (13.0-17.5) gm/dL Hct 33.1 L (39.0-53.0) % Plt Count (150-450) k/uL Neutrophils # 10.1 H (1.3-7.7) k/uL Lymphocytes # 0.6 L (1.0-4.8) k/uL APTT (22.0-30.0) sec ABG pH (7.35-7.45) ABG pCO2 (35-45) mmHg ABG pO2 (83-108) mmHg ABG HCO3 (21-25) mmol/L ABG Total CO2 (19-24) mmol/L ABG O2 Saturation (94-97) % ABG Hematocrit (34.0-46.0) % ABG Sodium (135-146) mmol/L ABG Potassium (3.4-4.5) mmol/L ABG Ionized Calcium (4.5-5.3) mg/dL ABG Glucose (75-99) mg/dL ABG Lactic Acid (0.5-1.6) mmol/L Hemoglobin (13.0-17.5) gm/dL Chloride (98-107) mmol/L Glucose 141 H (74-99) mg/dL POC Glucose (mg/dL) 134 H (75-99) mg/dL Calcium (8.4-10.2) mg/dL Ionized Calcium Zulma (4.5-5.3) mg/dL Magnesium (1.6-2.3) mg/dL ALT (21-72) U/L Alkaline Phosphatase (38-126) U/L Total Protein (6.3-8.2) g/dL Albumin (3.5-5.0) g/dL Arterial Blood Potassium (3.4-4.5) mmol/L Arterial Blood Glucose (75-99) mg/dL Crossmatch 08/07/18 08/07/18 08/08/18 Range/Units 23:07 23:56 02:03 WBC (3.8-10.6) k/uL RBC (4.30-5.90) m/uL Hgb (13.0-17.5) gm/dL Hct (39.0-53.0) % Plt Count (150-450) k/uL Neutrophils # (1.3-7.7) k/uL Lymphocytes # (1.0-4.8) k/uL APTT (22.0-30.0) sec ABG pH (7.35-7.45) ABG pCO2 (35-45) mmHg ABG pO2 (83-108) mmHg ABG HCO3 (21-25) mmol/L ABG Total CO2 (19-24) mmol/L ABG O2 Saturation (94-97) % ABG Hematocrit (34.0-46.0) % ABG Sodium (135-146) mmol/L ABG Potassium (3.4-4.5) mmol/L ABG Ionized Calcium (4.5-5.3) mg/dL ABG Glucose (75-99) mg/dL ABG Lactic Acid (0.5-1.6) mmol/L Hemoglobin (13.0-17.5) gm/dL Chloride (98-107) mmol/L Glucose (74-99) mg/dL POC Glucose (mg/dL) 150 H 162 H 133 H (75-99) mg/dL Calcium (8.4-10.2) mg/dL Ionized Calcium Zulma (4.5-5.3) mg/dL Magnesium (1.6-2.3) mg/dL ALT (21-72) U/L Alkaline Phosphatase (38-126) U/L Total Protein (6.3-8.2) g/dL Albumin (3.5-5.0) g/dL Arterial Blood Potassium (3.4-4.5) mmol/L Arterial Blood Glucose (75-99) mg/dL Crossmatch 08/08/18 08/08/18 08/08/18 Range/Units 03:24 04:09 04:15 WBC 11.5 H (3.8-10.6) k/uL RBC 3.35 L (4.30-5.90) m/uL Hgb 10.6 L (13.0-17.5) gm/dL Hct 30.8 L (39.0-53.0) % Plt Count (150-450) k/uL Neutrophils # 10.3 H (1.3-7.7) k/uL Lymphocytes # 0.4 L (1.0-4.8) k/uL APTT (22.0-30.0) sec ABG pH (7.35-7.45) ABG pCO2 (35-45) mmHg ABG pO2 (83-108) mmHg ABG HCO3 (21-25) mmol/L ABG Total CO2 (19-24) mmol/L ABG O2 Saturation (94-97) % ABG Hematocrit (34.0-46.0) % ABG Sodium (135-146) mmol/L ABG Potassium (3.4-4.5) mmol/L ABG Ionized Calcium (4.5-5.3) mg/dL ABG Glucose (75-99) mg/dL ABG Lactic Acid (0.5-1.6) mmol/L Hemoglobin (13.0-17.5) gm/dL Chloride (98-107) mmol/L Glucose (74-99) mg/dL POC Glucose (mg/dL) 143 H 130 H (75-99) mg/dL Calcium (8.4-10.2) mg/dL Ionized Calcium Zulma (4.5-5.3) mg/dL Magnesium (1.6-2.3) mg/dL ALT (21-72) U/L Alkaline Phosphatase (38-126) U/L Total Protein (6.3-8.2) g/dL Albumin (3.5-5.0) g/dL Arterial Blood Potassium (3.4-4.5) mmol/L Arterial Blood Glucose (75-99) mg/dL Crossmatch 08/08/18 08/08/18 08/08/18 Range/Units 04:15 04:53 06:46 WBC (3.8-10.6) k/uL RBC (4.30-5.90) m/uL Hgb (13.0-17.5) gm/dL Hct (39.0-53.0) % Plt Count (150-450) k/uL Neutrophils # (1.3-7.7) k/uL Lymphocytes # (1.0-4.8) k/uL APTT (22.0-30.0) sec ABG pH (7.35-7.45) ABG pCO2 (35-45) mmHg ABG pO2 (83-108) mmHg ABG HCO3 (21-25) mmol/L ABG Total CO2 (19-24) mmol/L ABG O2 Saturation (94-97) % ABG Hematocrit (34.0-46.0) % ABG Sodium (135-146) mmol/L ABG Potassium (3.4-4.5) mmol/L ABG Ionized Calcium (4.5-5.3) mg/dL ABG Glucose (75-99) mg/dL ABG Lactic Acid (0.5-1.6) mmol/L Hemoglobin (13.0-17.5) gm/dL Chloride (98-107) mmol/L Glucose 120 H (74-99) mg/dL POC Glucose (mg/dL) 139 H 144 H (75-99) mg/dL Calcium 8.3 L (8.4-10.2) mg/dL Ionized Calcium Zulma (4.5-5.3) mg/dL Magnesium (1.6-2.3) mg/dL ALT (21-72) U/L Alkaline Phosphatase 34 L (38-126) U/L Total Protein 5.3 L (6.3-8.2) g/dL Albumin (3.5-5.0) g/dL Arterial Blood Potassium (3.4-4.5) mmol/L Arterial Blood Glucose (75-99) mg/dL Crossmatch 08/08/18 Range/Units 08:18 WBC (3.8-10.6) k/uL RBC (4.30-5.90) m/uL Hgb (13.0-17.5) gm/dL Hct (39.0-53.0) % Plt Count (150-450) k/uL Neutrophils # (1.3-7.7) k/uL Lymphocytes # (1.0-4.8) k/uL APTT (22.0-30.0) sec ABG pH (7.35-7.45) ABG pCO2 (35-45) mmHg ABG pO2 (83-108) mmHg ABG HCO3 (21-25) mmol/L ABG Total CO2 (19-24) mmol/L ABG O2 Saturation (94-97) % ABG Hematocrit (34.0-46.0) % ABG Sodium (135-146) mmol/L ABG Potassium (3.4-4.5) mmol/L ABG Ionized Calcium (4.5-5.3) mg/dL ABG Glucose (75-99) mg/dL ABG Lactic Acid (0.5-1.6) mmol/L Hemoglobin (13.0-17.5) gm/dL Chloride (98-107) mmol/L Glucose (74-99) mg/dL POC Glucose (mg/dL) 127 H (75-99) mg/dL Calcium (8.4-10.2) mg/dL Ionized Calcium Zulma (4.5-5.3) mg/dL Magnesium (1.6-2.3) mg/dL ALT (21-72) U/L Alkaline Phosphatase (38-126) U/L Total Protein (6.3-8.2) g/dL Albumin (3.5-5.0) g/dL Arterial Blood Potassium (3.4-4.5) mmol/L Arterial Blood Glucose (75-99) mg/dL Crossmatch - Imaging and Cardiology Chest x-ray: image reviewed Assessment and Plan Assessment: 1. Severe triple-vessel coronary artery disease, status post four-vessel CABG 2. History of coronary artery disease, myocardial infarction status post multiple coronary stenting 3. Moderate aortic stenosis per TTE without gradient across the aortic valve on heart catheterization 4. Hypertension 5. Hyperlipidemia 6. Prostate cancer status post radiation approximately 7-8 years ago 7. Obstructive sleep apnea with home CPAP use 8. Never smoker, long history of secondhand smoke exposure 9. Family history of significant coronary artery disease with from myocardial infarction 10. Postoperative acute blood loss anemia, expected Plan: 1. Continue aspirin, Zetia, beta marylou therapy. Will increase beta marylou as tolerated. No Plavix or statins as patient as intolerant. 2. Will start oral Norvasc for radial artery spasm prophylaxis. Discontinue IV nitro 30 minutes after administration of Norvasc. Wean Cleviprex as tolerated. 3. Wean O2 as tolerated. Encourage incentive spirometry use 10 times every hour while awake. 4. Increase activity, ambulate as tolerated. PT/OT/cardiac rehab following. 5. Will monitor daily labs and x-rays. Electrolyte replacement per protocol. No blood transfusions. 6. Pain control with current medication regimen. Toradol added. 7. Discontinue Eugene. Connect Cordis to continuous CVP monitoring. 8. Insulin management per primary care service 9. GI/DVT prophylaxis 10. Bronchodilators, CPAP per pulmonology. 11. Will continue chest tubes for another 24 hours. 12. Keep Hanson for another 24 hours for strict accurate intake and output. 13. More recommendations to follow based on patient's clinical course. Time with Patient: Greater than 30
[2018-08-08] MEDS: IPRATROPIUM-ALBUTEROL 3 ML NEB INHALATION SCH ×4 (08:58→19:21)
[2018-08-08] MEDS ORDERED: MAGNESIUM HYDROXIDE 2,400 MG/10 ML CUP PO PRN (09:00)
[2018-08-08] MEDS ORDERED: PANTOPRAZOLE 40 MG/10 ML VIAL IVP SCH (09:00)
[2018-08-08] MEDS ORDERED: METOPROLOL TARTRATE 12.5 MG TAB PO SCH (09:00)
[2018-08-08] MEDS ORDERED: BISACODYL 10 MG SUPP RECTAL PRN (09:00)
[2018-08-08] MEDS ORDERED: amLODIPine 2.5 MG TAB PO SCH (09:00)
[2018-08-08 09:18] LABS: Glucose,Whole Blood 116 mg/dL (75-99)
[2018-08-08 09:38] VITALS: BMI 29.2
--- NOTE | 2018-08-08 10:05 | XR ---
EXAMINATION TYPE: XR chest 1V portable DATE OF EXAM: 08/08/2018 COMPARISON: 08/07/2018 HISTORY: Status post cardiac surgery TECHNIQUE: Single frontal view of the chest is obtained. FINDINGS: There has been interval removal of the endotracheal and enteric tubes. [place] catheter from a right internal jugular approach, mediastinal drains, and left thoracostomy tube remain. No res idual pneumothorax is seen. Probable hiatal hernia and retrocardiac airspace disease are unchanged. T here are overall low lung volumes with scattered areas of atelectasis. Cardiomediastinal silhouette i s stable with postoperative change. Mild diffuse osseous demineralization. IMPRESSION: Interval removal of the endotracheal and enteric tubes. Otherwise stable lines and tubes with unchanged retrocardiac airspace disease and multifocal atelectasis.
[2018-08-08] MEDS ORDERED: amLODIPine 2.5 MG TAB PO STA (10:17)
[2018-08-08 10:31] LABS: Glucose,Whole Blood 137 mg/dL (75-99)
[2018-08-08 11:14] LABS: Glucose,Whole Blood 137 mg/dL (75-99)
[2018-08-08 12:18] LABS: Glucose,Whole Blood 126 mg/dL (75-99)
[2018-08-08] MEDS: LACTATED RINGERS 1,000 ML IV SCH (12:33)
--- NOTE | 2018-08-08 12:39 | P.PN ---
Subjective Progress Note Date: 08/08/18 This is a -year-old male patient underwent a four-vessel bypass surgery including BLACKWELL to LAD. The patient is postop day #1. I was involved in his postoperative care. Axillary this patient immediately within 6 hours after he got to the ICU. The patient did extremely well. The patient overnight had to be placed on a nitroglycerin drip and temperature for blood pressure control. These are being gradually weaned off. The IV nitro Estelle drip is for radial artery spasm prophylaxis. Otherwise, the patient is using incentive spirometer. His bowling approximately 500 mL and his INR. His sternal stable clean and intact. Chest tubes are in place and the patient has 2 mediastinal and 1 pleural chest tube. Chest x-ray from today shows adequate expansion of both lungs. Hanover-Daphney catheter still in place. Is producing adequate amount of urine output. He is afebrile. The cardiac index is at 2.2 with an output of 4.2. Pulmonary pressures 21/16. Cardiac rhythm is sinus. No other significant events otherwise over the past 24 hours. Objective - Vital Signs Vital signs: Vital Signs Temp 97.9 F 08/08/18 12:00 Pulse 82 08/08/18 12:30 Resp 25 H 08/08/18 12:30 BP 104/69 08/08/18 04:00 Pulse Ox 97 08/08/18 12:30 Intake & Output 08/07/18 08/08/18 08/08/18 18:59 06:59 18:59 Intake Total 846.511 1296.716 400.786 Output Total 3150 2440 250 Balance -2649.552 -679.284 150.786 Weight 82.2 kg 82.2 kg Intake: IV 448 1667 256 ACETAMINOPHEN IV (For NPO 100 100 ) 1,000 mg In Empty Bag 1 bag @ 400 mls/hr IVPB Q6HR [facility] Rx#:[id number] CO/CI 80 400 Lactated Ringers 1,000 ml 200 650 220 @ 20 mls/hr IV .Q24H JASPAL Rx#:[id number] Magnesium Sulfate-D5w Pmx 200 1 gm In Dextrose/Water 1 100ml.bag @ 100 mls/hr IVPB Q1H [facility] Rx#: [id number] Potassium Chloride 10 meq 200 In Water For Injection 1 100ml.bag @ 100 mls/hr IVPB Q1H [facility]AL Rx#: [id number] Pressure Bag 36 117 36 Intake, IV Titration 52.448 93.716 44.786 Amount Clevidipine Butyrate 25 5.200 72.034 38.667 mg In Empty Bag 1 bag @ 1 MG/HR 2 mls/hr IV .Q24H [facility] Rx#:[id number] Insulin Regular 100 unit 0.202 21.682 6.119 In Sodium Chloride 0.9% 100 ml @ Per Protocol IV .Q0M [facility] Rx#:[id number] Propofol 1,000 mg In 47.046 Empty Bag 1 bag @ Titrate IV .Q0M [facility] Rx#: [id number] Oral 100 Output: Chest Tube Drainage 180 515 110 Left Pleural 40 305 80 Mediastinal x2 140 210 30 Urine 1770 1925 140 Estimated Blood Loss 1200 Other: Voiding Method Indwelling Catheter Indwelling Catheter Indwelling Catheter ABP, PAP, CO, CI - Last Documented Arterial Blood Pressure 131/61 Pulmonary Artery Pressure 25/17 Cardiac Output 4.2 Cardiac Index 2.3 - Exam - Constitutional General appearance: Present: cooperative, no acute distress - Respiratory Details: Lungs sounds diminished bilaterally. Respirations even, nonlabored. Currently on 10 L high flow nasal cannula with oxygen saturation 92%. Only able to achieve 500 mL on his incentive spirometry. Weak cough. Mediastinal chest tube to continuous wall suction, 90 mL serosanguineous drainage overnight, 350 mL since surgery. Left pleural chest tube to continuous wall suction, 130 mL serosanguineous overnight, 350 mL since surgery. No air leaks present. - Cardiovascular Details: S1, S2 present. Regular rate and rhythm, sinus rhythm on telemetry. Sternum stable. A/V epicardial pacemaker wires present, connected to generator, VVI mode with a backup rate 60 bpm. Palpable peripheral pulses bilaterally. No edema present. No calf pain or tenderness. Right internal jugular Hanover/Cordis, right radial arterial line present. Last CO/CI 4.2/2.3 no inotropes or pressors. Antiembolism stockings, SCDs present. Heart hugger in place with patient demonstrating appropriate use. - Gastrointestinal Gastrointestinal Comment(s): Abdomen soft, nontender, nondistended. Active bowel sounds present 4 quadrants. Tolerating clear liquids. Positive flatus. - Genitourinary Genitourinary Comment(s): Hanson present draining clear, yellow urine. Output 80-175 mL/h overnight. - Integumentary Integumentary Comment(s): Skin is warm and dry with evidence of good perfusion. Anterior chest incision w ell approximated and covered with dry intact dressing. Left lower extremity EVH site well approximated with Dermabond. - Neurologic Neurologic: Present: CNII-XII intact - Musculoskeletal Musculoskeletal: Present: generalized weakness, strength equal bilaterally - Psychiatric Psychiatric: Present: A&O x's 3, appropriate affect, intact judgment & insight - Labs CBC & Chem 7: 08/08/18 04:15 08/08/18 04:15 Labs: Abnormal Lab Results - Last 24 Hours (Table) 08/01/18 08/07/18 08/07/18 Range/Units 17:05 08:40 10:08 WBC (3.8-10.6) k/uL RBC (4.30-5.90) m/uL Hgb (13.0-17.5) gm/dL Hct (39.0-53.0) % Plt Count (150-450) k/uL Neutrophils # (1.3-7.7) k/uL Lymphocytes # (1.0-4.8) k/uL APTT (22.0-30.0) sec ABG pH (7.35-7.45) ABG pCO2 (35-45) mmHg ABG pO2 156 H 118 H (83-108) mmHg ABG HCO3 26 H (21-25) mmol/L ABG Total CO2 27 H 26 H (19-24) mmol/L ABG O2 Saturation 99.8 H 99.2 H (94-97) % ABG Hematocrit (34.0-46.0) % ABG Sodium (135-146) mmol/L ABG Potassium (3.4-4.5) mmol/L ABG Ionized Calcium (4.5-5.3) mg/dL ABG Glucose 116 H 145 H (75-99) mg/dL ABG Lactic Acid (0.5-1.6) mmol/L Hemoglobin 12.7 L 12.1 L (13.0-17.5) gm/dL Chloride (98-107) mmol/L Glucose (74-99) mg/dL POC Glucose (mg/dL) (75-99) mg/dL Calcium (8.4-10.2) mg/dL Ionized Calcium Zulma (4.5-5.3) mg/dL Magnesium (1.6-2.3) mg/dL ALT (21-72) U/L Alkaline Phosphatase (38-126) U/L Total Protein (6.3-8.2) g/dL Albumin (3.5-5.0) g/dL Arterial Blood Potassium (3.4-4.5) mmol/L Arterial Blood Glucose 116 H 145 H (75-99) mg/dL Crossmatch See Detail 08/07/18 08/07/18 08/07/18 Range/Units 11:03 11:33 12:02 WBC (3.8-10.6) k/uL RBC (4.30-5.90) m/uL Hgb (13.0-17.5) gm/dL Hct (39.0-53.0) % Plt Count (150-450) k/uL Neutrophils # (1.3-7.7) k/uL Lymphocytes # (1.0-4.8) k/uL APTT (22.0-30.0) sec ABG pH (7.35-7.45) ABG pCO2 (35-45) mmHg ABG pO2 334 H 274 H 396 H (83-108) mmHg ABG HCO3 (21-25) mmol/L ABG Total CO2 25 H 25 H 26 H (19-24) mmol/L ABG O2 Saturation 100.0 H 100.0 H 100.0 H (94-97) % ABG Hematocrit 26 L 27 L 27 L (34.0-46.0) % ABG Sodium 130 L 131 L 134 L (135-146) mmol/L ABG Potassium 5.8 H 6.2 H* 5.5 H (3.4-4.5) mmol/L ABG Ionized Calcium 4.1 L 4.2 L 4.2 L (4.5-5.3) mg/dL ABG Glucose 231 H 236 H 197 H (75-99) mg/dL ABG Lactic Acid 1.8 H (0.5-1.6) mmol/L Hemoglobin 8.6 L 8.7 L 8.6 L (13.0-17.5) gm/dL Chloride (98-107) mmol/L Glucose (74-99) mg/dL POC Glucose (mg/dL) (75-99) mg/dL Calcium (8.4-10.2) mg/dL Ionized Calcium Zulma (4.5-5.3) mg/dL Magnesium (1.6-2.3) mg/dL ALT (21-72) U/L Alkaline Phosphatase (38-126) U/L Total Protein (6.3-8.2) g/dL Albumin (3.5-5.0) g/dL Arterial Blood Potassium 5.8 H 6.2 H* 5.5 H (3.4-4.5) mmol/L Arterial Blood Glucose 231 H 236 H 197 H (75-99) mg/dL Crossmatch 08/07/18 08/07/18 08/07/18 Range/Units 12:53 13:41 14:59 WBC (3.8-10.6) k/uL RBC 3.02 L (4.30-5.90) m/uL Hgb 9.6 L D (13.0-17.5) gm/dL Hct 28.0 L (39.0-53.0) % Plt Count 119 L D (150-450) k/uL Neutrophils # (1.3-7.7) k/uL Lymphocytes # 0.7 L (1.0-4.8) k/uL APTT (22.0-30.0) sec ABG pH 7.34 L 7.34 L (7.35-7.45) ABG pCO2 (35-45) mmHg ABG pO2 288 H 242 H (83-108) mmHg ABG HCO3 (21-25) mmol/L ABG Total CO2 25 H 26 H (19-24) mmol/L ABG O2 Saturation 100.0 H 100.0 H (94-97) % ABG Hematocrit 24 L 28 L (34.0-46.0) % ABG Sodium (135-146) mmol/L ABG Potassium 4.6 H (3.4-4.5) mmol/L ABG Ionized Calcium 4.2 L 4.0 L (4.5-5.3) mg/dL ABG Glucose 158 H 143 H (75-99) mg/dL ABG Lactic Acid 3.1 H* 2.2 H* (0.5-1.6) mmol/L Hemoglobin 7.8 L 9.2 L (13.0-17.5) gm/dL Chloride (98-107) mmol/L Glucose (74-99) mg/dL POC Glucose (mg/dL) (75-99) mg/dL Calcium (8.4-10.2) mg/dL Ionized Calcium Zulma (4.5-5.3) mg/dL Magnesium (1.6-2.3) mg/dL ALT (21-72) U/L Alkaline Phosphatase (38-126) U/L Total Protein (6.3-8.2) g/dL Albumin (3.5-5.0) g/dL Arterial Blood Potassium 4.6 H (3.4-4.5) mmol/L Arterial Blood Glucose 158 H 143 H (75-99) mg/dL Crossmatch 08/07/18 08/07/18 08/07/18 Range/Units 14:59 14:59 15:25 WBC (3.8-10.6) k/uL RBC (4.30-5.90) m/uL Hgb (13.0-17.5) gm/dL Hct (39.0-53.0) % Plt Count (150-450) k/uL Neutrophils # (1.3-7.7) k/uL Lymphocytes # (1.0-4.8) k/uL APTT 31.2 H (22.0-30.0) sec ABG pH (7.35-7.45) ABG pCO2 49 H (35-45) mmHg ABG pO2 303 H (83-108) mmHg ABG HCO3 27 H (21-25) mmol/L ABG Total CO2 28 H (19-24) mmol/L ABG O2 Saturation 99.7 H (94-97) % ABG Hematocrit (34.0-46.0) % ABG Sodium (135-146) mmol/L ABG Potassium (3.4-4.5) mmol/L ABG Ionized Calcium (4.5-5.3) mg/dL ABG Glucose (75-99) mg/dL ABG Lactic Acid (0.5-1.6) mmol/L Hemoglobin (13.0-17.5) gm/dL Chloride 108 H (98-107) mmol/L Glucose (74-99) mg/dL POC Glucose (mg/dL) (75-99) mg/dL Calcium (8.4-10.2) mg/dL Ionized Calcium Zulma 5.4 H (4.5-5.3) mg/dL Magnesium 2.5 H (1.6-2.3) mg/dL ALT 18 L (21-72) U/L Alkaline Phosphatase 24 L (38-126) U/L Total Protein 4.3 L (6.3-8.2) g/dL Albumin 2.7 L (3.5-5.0) g/dL Arterial Blood Potassium (3.4-4.5) mmol/L Arterial Blood Glucose (75-99) mg/dL Crossmatch 08/07/18 08/07/18 08/07/18 Range/Units 16:01 17:19 18:00 WBC (3.8-10.6) k/uL RBC 3.34 L (4.30-5.90) m/uL Hgb 10.4 L (13.0-17.5) gm/dL Hct 31.2 L (39.0-53.0) % Plt Count (150-450) k/uL Neutrophils # (1.3-7.7) k/uL Lymphocytes # 0.7 L (1.0-4.8) k/uL APTT (22.0-30.0) sec ABG pH (7.35-7.45) ABG pCO2 (35-45) mmHg ABG pO2 (83-108) mmHg ABG HCO3 (21-25) mmol/L ABG Total CO2 (19-24) mmol/L ABG O2 Saturation (94-97) % ABG Hematocrit (34.0-46.0) % ABG Sodium (135-146) mmol/L ABG Potassium (3.4-4.5) mmol/L ABG Ionized Calcium (4.5-5.3) mg/dL ABG Glucose (75-99) mg/dL ABG Lactic Acid (0.5-1.6) mmol/L Hemoglobin (13.0-17.5) gm/dL Chloride (98-107) mmol/L Glucose (74-99) mg/dL POC Glucose (mg/dL) 100 H 146 H (75-99) mg/dL Calcium (8.4-10.2) mg/dL Ionized Calcium Zulma (4.5-5.3) mg/dL Magnesium (1.6-2.3) mg/dL ALT (21-72) U/L Alkaline Phosphatase (38-126) U/L Total Protein (6.3-8.2) g/dL Albumin (3.5-5.0) g/dL Arterial Blood Potassium (3.4-4.5) mmol/L Arterial Blood Glucose (75-99) mg/dL Crossmatch 08/07/18 08/07/18 08/07/18 Range/Units 18:00 18:01 18:58 WBC (3.8-10.6) k/uL RBC (4.30-5.90) m/uL Hgb (13.0-17.5) gm/dL Hct (39.0-53.0) % Plt Count (150-450) k/uL Neutrophils # (1.3-7.7) k/uL Lymphocytes # (1.0-4.8) k/uL APTT (22.0-30.0) sec ABG pH (7.35-7.45) ABG pCO2 (35-45) mmHg ABG pO2 (83-108) mmHg ABG HCO3 (21-25) mmol/L ABG Total CO2 (19-24) mmol/L ABG O2 Saturation (94-97) % ABG Hematocrit (34.0-46.0) % ABG Sodium (135-146) mmol/L ABG Potassium (3.4-4.5) mmol/L ABG Ionized Calcium (4.5-5.3) mg/dL ABG Glucose (75-99) mg/dL ABG Lactic Acid (0.5-1.6) mmol/L Hemoglobin (13.0-17.5) gm/dL Chloride (98-107) mmol/L Glucose 135 H (74-99) mg/dL POC Glucose (mg/dL) 138 H 145 H (75-99) mg/dL Calcium (8.4-10.2) mg/dL Ionized Calcium Zulma (4.5-5.3) mg/dL Magnesium (1.6-2.3) mg/dL ALT (21-72) U/L Alkaline Phosphatase (38-126) U/L Total Protein (6.3-8.2) g/dL Albumin (3.5-5.0) g/dL Arterial Blood Potassium (3.4-4.5) mmol/L Arterial Blood Glucose (75-99) mg/dL Crossmatch 08/07/18 08/07/18 08/07/18 Range/Units 19:20 19:58 20:58 WBC (3.8-10.6) k/uL RBC (4.30-5.90) m/uL Hgb (13.0-17.5) gm/dL Hct (39.0-53.0) % Plt Count (150-450) k/uL Neutrophils # (1.3-7.7) k/uL Lymphocytes # (1.0-4.8) k/uL APTT (22.0-30.0) sec ABG pH (7.35-7.45) ABG pCO2 (35-45) mmHg ABG pO2 75 L (83-108) mmHg ABG HCO3 27 H (21-25) mmol/L ABG Total CO2 28 H (19-24) mmol/L ABG O2 Saturation (94-97) % ABG Hematocrit (34.0-46.0) % ABG Sodium (135-146) mmol/L ABG Potassium (3.4-4.5) mmol/L ABG Ionized Calcium (4.5-5.3) mg/dL ABG Glucose (75-99) mg/dL ABG Lactic Acid (0.5-1.6) mmol/L Hemoglobin (13.0-17.5) gm/dL Chloride (98-107) mmol/L Glucose (74-99) mg/dL POC Glucose (mg/dL) 163 H 144 H (75-99) mg/dL Calcium (8.4-10.2) mg/dL Ionized Calcium Zulma (4.5-5.3) mg/dL Magnesium (1.6-2.3) mg/dL ALT (21-72) U/L Alkaline Phosphatase (38-126) U/L Total Protein (6.3-8.2) g/dL Albumin (3.5-5.0) g/dL Arterial Blood Potassium (3.4-4.5) mmol/L Arterial Blood Glucose (75-99) mg/dL Crossmatch 08/07/18 08/07/18 08/07/18 Range/Units 21:00 21:00 22:12 WBC 11.4 H (3.8-10.6) k/uL RBC 3.61 L (4.30-5.90) m/uL Hgb 11.4 L (13.0-17.5) gm/dL Hct 33.1 L (39.0-53.0) % Plt Count (150-450) k/uL Neutrophils # 10.1 H (1.3-7.7) k/uL Lymphocytes # 0.6 L (1.0-4.8) k/uL APTT (22.0-30.0) sec ABG pH (7.35-7.45) ABG pCO2 (35-45) mmHg ABG pO2 (83-108) mmHg ABG HCO3 (21-25) mmol/L ABG Total CO2 (19-24) mmol/L ABG O2 Saturation (94-97) % ABG Hematocrit (34.0-46.0) % ABG Sodium (135-146) mmol/L ABG Potassium (3.4-4.5) mmol/L ABG Ionized Calcium (4.5-5.3) mg/dL ABG Glucose (75-99) mg/dL ABG Lactic Acid (0.5-1.6) mmol/L Hemoglobin (13.0-17.5) gm/dL Chloride (98-107) mmol/L Glucose 141 H (74-99) mg/dL POC Glucose (mg/dL) 134 H (75-99) mg/dL Calcium (8.4-10.2) mg/dL Ionized Calcium Zulma (4.5-5.3) mg/dL Magnesium (1.6-2.3) mg/dL ALT (21-72) U/L Alkaline Phosphatase (38-126) U/L Total Protein (6.3-8.2) g/dL Albumin (3.5-5.0) g/dL Arterial Blood Potassium (3.4-4.5) mmol/L Arterial Blood Glucose (75-99) mg/dL Crossmatch 08/07/18 08/07/18 08/08/18 Range/Units 23:07 23:56 02:03 WBC (3.8-10.6) k/uL RBC (4.30-5.90) m/uL Hgb (13.0-17.5) gm/dL Hct (39.0-53.0) % Plt Count (150-450) k/uL Neutrophils # (1.3-7.7) k/uL Lymphocytes # (1.0-4.8) k/uL APTT (22.0-30.0) sec ABG pH (7.35-7.45) ABG pCO2 (35-45) mmHg ABG pO2 (83-108) mmHg ABG HCO3 (21-25) mmol/L ABG Total CO2 (19-24) mmol/L ABG O2 Saturation (94-97) % ABG Hematocrit (34.0-46.0) % ABG Sodium (135-146) mmol/L ABG Potassium (3.4-4.5) mmol/L ABG Ionized Calcium (4.5-5.3) mg/dL ABG Glucose (75-99) mg/dL ABG Lactic Acid (0.5-1.6) mmol/L Hemoglobin (13.0-17.5) gm/dL Chloride (98-107) mmol/L Glucose (74-99) mg/dL POC Glucose (mg/dL) 150 H 162 H 133 H (75-99) mg/dL Calcium (8.4-10.2) mg/dL Ionized Calcium Zulma (4.5-5.3) mg/dL Magnesium (1.6-2.3) mg/dL ALT (21-72) U/L Alkaline Phosphatase (38-126) U/L Total Protein (6.3-8.2) g/dL Albumin (3.5-5.0) g/dL Arterial Blood Potassium (3.4-4.5) mmol/L Arterial Blood Glucose (75-99) mg/dL Crossmatch 08/08/18 08/08/18 08/08/18 Range/Units 03:24 04:09 04:15 WBC 11.5 H (3.8-10.6) k/uL RBC 3.35 L (4.30-5.90) m/uL Hgb 10.6 L (13.0-17.5) gm/dL Hct 30.8 L (39.0-53.0) % Plt Count (150-450) k/uL Neutrophils # 10.3 H (1.3-7.7) k/uL Lymphocytes # 0.4 L (1.0-4.8) k/uL APTT (22.0-30.0) sec ABG pH (7.35-7.45) ABG pCO2 (35-45) mmHg ABG pO2 (83-108) mmHg ABG HCO3 (21-25) mmol/L ABG Total CO2 (19-24) mmol/L ABG O2 Saturation (94-97) % ABG Hematocrit (34.0-46.0) % ABG Sodium (135-146) mmol/L ABG Potassium (3.4-4.5) mmol/L ABG Ionized Calcium (4.5-5.3) mg/dL ABG Glucose (75-99) mg/dL ABG Lactic Acid (0.5-1.6) mmol/L Hemoglobin (13.0-17.5) gm/dL Chloride (98-107) mmol/L Glucose (74-99) mg/dL POC Glucose (mg/dL) 143 H 130 H (75-99) mg/dL Calcium (8.4-10.2) mg/dL Ionized Calcium Zulma (4.5-5.3) mg/dL Magnesium (1.6-2.3) mg/dL ALT (21-72) U/L Alkaline Phosphatase (38-126) U/L Total Protein (6.3-8.2) g/dL Albumin (3.5-5.0) g/dL Arterial Blood Potassium (3.4-4.5) mmol/L Arterial Blood Glucose (75-99) mg/dL Crossmatch 08/08/18 08/08/18 08/08/18 Range/Units 04:15 04:53 06:46 WBC (3.8-10.6) k/uL RBC (4.30-5.90) m/uL Hgb (13.0-17.5) gm/dL Hct (39.0-53.0) % Plt Count (150-450) k/uL Neutrophils # (1.3-7.7) k/uL Lymphocytes # (1.0-4.8) k/uL APTT (22.0-30.0) sec ABG pH (7.35-7.45) ABG pCO2 (35-45) mmHg ABG pO2 (83-108) mmHg ABG HCO3 (21-25) mmol/L ABG Total CO2 (19-24) mmol/L ABG O2 Saturation (94-97) % ABG Hematocrit (34.0-46.0) % ABG Sodium (135-146) mmol/L ABG Potassium (3.4-4.5) mmol/L ABG Ionized Calcium (4.5-5.3) mg/dL ABG Glucose (75-99) mg/dL ABG Lactic Acid (0.5-1.6) mmol/L Hemoglobin (13.0-17.5) gm/dL Chloride (98-107) mmol/L Glucose 120 H (74-99) mg/dL POC Glucose (mg/dL) 139 H 144 H (75-99) mg/dL Calcium 8.3 L (8.4-10.2) mg/dL Ionized Calcium Zulma (4.5-5.3) mg/dL Magnesium (1.6-2.3) mg/dL ALT (21-72) U/L Alkaline Phosphatase 34 L (38-126) U/L Total Protein 5.3 L (6.3-8.2) g/dL Albumin (3.5-5.0) g/dL Arterial Blood Potassium (3.4-4.5) mmol/L Arterial Blood Glucose (75-99) mg/dL Crossmatch 08/08/18 08/08/18 08/08/18 Range/Units 08:18 09:06 10:20 WBC (3.8-10.6) k/uL RBC (4.30-5.90) m/uL Hgb (13.0-17.5) gm/dL Hct (39.0-53.0) % Plt Count (150-450) k/uL Neutrophils # (1.3-7.7) k/uL Lymphocytes # (1.0-4.8) k/uL APTT (22.0-30.0) sec ABG pH (7.35-7.45) ABG pCO2 (35-45) mmHg ABG pO2 (83-108) mmHg ABG HCO3 (21-25) mmol/L ABG Total CO2 (19-24) mmol/L ABG O2 Saturation (94-97) % ABG Hematocrit (34.0-46.0) % ABG Sodium (135-146) mmol/L ABG Potassium (3.4-4.5) mmol/L ABG Ionized Calcium (4.5-5.3) mg/dL ABG Glucose (75-99) mg/dL ABG Lactic Acid (0.5-1.6) mmol/L Hemoglobin (13.0-17.5) gm/dL Chloride (98-107) mmol/L Glucose (74-99) mg/dL POC Glucose (mg/dL) 127 H 116 H 137 H (75-99) mg/dL Calcium (8.4-10.2) mg/dL Ionized Calcium Zulma (4.5-5.3) mg/dL Magnesium (1.6-2.3) mg/dL ALT (21-72) U/L Alkaline Phosphatase (38-126) U/L Total Protein (6.3-8.2) g/dL Albumin (3.5-5.0) g/dL Arterial Blood Potassium (3.4-4.5) mmol/L Arterial Blood Glucose (75-99) mg/dL Crossmatch 08/08/18 08/08/18 Range/Units 11:02 12:06 WBC (3.8-10.6) k/uL RBC (4.30-5.90) m/uL Hgb (13.0-17.5) gm/dL Hct (39.0-53.0) % Plt Count (150-450) k/uL Neutrophils # (1.3-7.7) k/uL Lymphocytes # (1.0-4.8) k/uL APTT (22.0-30.0) sec ABG pH (7.35-7.45) ABG pCO2 (35-45) mmHg ABG pO2 (83-108) mmHg ABG HCO3 (21-25) mmol/L ABG Total CO2 (19-24) mmol/L ABG O2 Saturation (94-97) % ABG Hematocrit (34.0-46.0) % ABG Sodium (135-146) mmol/L ABG Potassium (3.4-4.5) mmol/L ABG Ionized Calcium (4.5-5.3) mg/dL ABG Glucose (75-99) mg/dL ABG Lactic Acid (0.5-1.6) mmol/L Hemoglobin (13.0-17.5) gm/dL Chloride (98-107) mmol/L Glucose (74-99) mg/dL POC Glucose (mg/dL) 137 H 126 H (75-99) mg/dL Calcium (8.4-10.2) mg/dL Ionized Calcium Zulma (4.5-5.3) mg/dL Magnesium (1.6-2.3) mg/dL ALT (21-72) U/L Alkaline Phosphatase (38-126) U/L Total Protein (6.3-8.2) g/dL Albumin (3.5-5.0) g/dL Arterial Blood Potassium (3.4-4.5) mmol/L Arterial Blood Glucose (75-99) mg/dL Crossmatch Assessment and Plan Plan: 1 symptomatic multivessel coronary artery disease. The patient is post cardiac bypass surgery and the patient is postop day #1. The patient is currently doing well and hemodynamically stable. He has an adequate cardiac output and index on no pressors for the time being. The patient underwent BLACKWELL to LAD and saphenous vein graft to obtuse marginal and PDA and posterior lateral branch of the right coronary artery.. The patient is postop day #1. Patient is doing well. The patient's been extubated. The patient is hemodynamically stable. The chest tubes are still in place. The patient has 2 pleural more mediastinal chest tube. Hemodynamically stable and the cardiac index of 2.3. Han[place]-Daphney catheter was removed. 2 post thoracotomy, the patient has 2 mediastinal and 1 pleural chest tube in addition to that the patient is currently intubated on a mechanical ventilator as is being weaned off the ventilator for now. This is an expected outcome of surgery/post thoracotomy 3 obstructive sleep apnea maintained on CPAP therapy on outpatient basis 4 hypertension, history of recurrent event Cleviprex for blood pressure control. 5 hyperlipidemia 6 prostate cancer previous radiation therapy to his prostate 7 moderate aortic stenosis without any significant gradient on his recent MELANIE Plan Continue using incentive spirometer. Advanced activity and diet as tolerated. Continue aspirin. Continue blood pressure control with Cleviprex. Start the patient on Norvasc and following that Cleviprex will be weaned off. Continue the nitro nitroglycerin drip per protocol. Discontinue the Hanover-Daphney catheter. Keep the Cordis in place. Aggressive rheumatoid toileting. Continue beta blockers. Continue Zetia. We'll continue to follow make further recommendations based on his progress.
[2018-08-08 13:24] LABS: Glucose,Whole Blood 124 mg/dL (75-99)
[2018-08-08] MEDS ORDERED: METOPROLOL TARTRATE 12.5 MG TAB PO STA (13:58)
[2018-08-08 15:26] LABS: Glucose,Whole Blood 115 mg/dL (75-99)
[2018-08-08 17:19] LABS: Glucose,Whole Blood 143 mg/dL (75-99)
[2018-08-08] MEDS: INSULIN ASPART (NovoLOG) 100 UNIT/ML VIAL SQ SCH ×3 (17:19→20:47)
--- NOTE | 2018-08-08 17:19 | P.CRDCN ---
History of Present Illness Consult date: 08/08/18 History of present illness: This is a 78-year-old gentleman with known case of ischemic heart disease who underwent cardiac catheterization on 08/01/2018. Because of positive stress test. Patient was found to have significant triple-vessel disease. Patient underwent aortic coronary bypass surgery. Patient had surgery done yesterday. Patient remained hemodynamically stable overnight. Patient is sitting up in the chair. She is not complaining of any significant chest pain. Doesn't appear to be in acute distress. Patient is maintaining sinus rhythm. Or I'll patient has progressed fairly well. Patient is currently on narcotics for pain medication along with amiodarone, amlodipine, aspirin, and also clevidipine drip. We will continue current medical therapy. Increase activity as tolerated. Incentive spirometry Review of Systems As per the chart Past Medical History Past Medical History: Coronary Artery Disease (CAD), Cancer, Chest Pain / Angina, Heart Failure, Hypertension, Myocardial Infarction (AL), Osteoarthritis (OA), Prostate Disorder, Sleep Apnea/CPAP/BIPAP Additional Past Medical History / Comment(s): MIx3,prostate CA approx 2011-tx radiation,uses cpap. Last Myocardial Infarction Date:: unk History of Any Multi-Drug Resistant Organisms: None Reported Past Surgical History: Heart Catheterization, Heart Catheterization With Stent, Hernia Repair Additional Past Surgical History / Comment(s): heart stents x7,7 hernia surgeries,3 shoulder surgeries,[place] cataracts Past Anesthesia/Blood Transfusion Reactions: No Reported Reaction Additional Past Anesthesia/Blood Transfusion Reaction / Comment(s): "a little goes a long ways",no hx blood transfusion Date of Last Stent Placement:: 2003 Smoking Status: Never smoker - Past Family History Mother Family Medical History: No Reported History Daughter(s) Family Medical History: Cancer Additional Family Medical History / Comment(s): breast CA Medications and Allergies Home Medications Medication Instructions Recorded Confirmed Type Aspirin [Adult Low Dose Aspirin EC] 81 mg PO DAILY 07/27/18 08/07/18 History Atenolol [Tenormin] 25 mg PO HS 07/27/18 08/07/18 History Ezetimibe [Zetia] 10 mg PO Q48H 07/27/18 08/07/18 History Lisinopril [Zestril] 10 mg PO DAILY 07/27/18 08/07/18 History Allergies Allergy/AdvReac Type Severity Reaction Status Date / Time codeine Allergy Nausea & Verified 08/07/18 10:19 Vomiting latex Allergy Anaphylaxis Verified 08/07/18 10:19 Physical Exam Vitals: Vital Signs Temp Pulse Pulse Resp BP Pulse Ox 08/08/18 16:27 80 08/08/18 16:19 77 08/08/18 16:00 75 84 19 98 08/08/18 15:00 79 21 96 08/08/18 14:00 77 18 97 08/08/18 13:00 81 27 H 95 08/08/18 12:30 82 25 H 97 08/08/18 12:29 82 08/08/18 12:08 78 08/08/18 12:00 97.9 F 75 12 99 08/08/18 11:30 75 15 99 08/08/18 11:00 79 12 92 L 08/08/18 10:00 85 22 93 L 08/08/18 09:30 82 18 93 L 08/08/18 09:11 80 08/08/18 09:01 80 93 L 08/08/18 09:00 80 30 H 94 L 08/08/18 08:30 74 11 L 96 08/08/18 08:00 75 10 L 96 08/08/18 07:30 81 26 H 94 L 08/08/18 07:00 85 17 90 L 08/08/18 06:30 92 14 88 L 08/08/18 06:00 87 35 H 89 L 08/08/18 05:30 86 19 92 L 08/08/18 05:00 90 25 H 90 L 08/08/18 04:49 92 L 08/08/18 04:30 92 32 H 89 L 08/08/18 04:00 97.6 F 80 25 H 104/69 90 L 08/08/18 03:30 88 23 104/69 90 L 08/08/18 03:00 86 18 104/69 92 L 08/08/18 02:30 85 19 104/69 91 L 08/08/18 02:00 85 26 H 89 L 08/08/18 01:30 82 15 92 L 08/08/18 01:00 84 18 90 L 08/08/18 00:30 82 15 92 L 08/08/18 00:20 82 15 92 L 08/08/18 00:00 97.3 F L 87 21 90 L 08/07/18 23:30 90 23 91 L 08/07/18 23:00 85 17 93 L 08/07/18 22:30 91 16 91 L 08/07/18 22:00 86 18 92 L 08/07/18 21:30 92 21 91 L 08/07/18 21:00 87 18 93 L 08/07/18 20:30 91 18 91 L 08/07/18 20:04 86 08/07/18 20:00 98.1 F 89 18 94 L 08/07/18 19:51 89 08/07/18 19:30 90 18 93 L 08/07/18 19:00 98 F 89 17 93 L 08/07/18 18:45 102 H 16 95 08/07/18 18:30 92 28 H 94 L 08/07/18 18:15 81 25 H 97 08/07/18 18:00 98.4 F 79 14 96 08/07/18 17:45 78 17 95 08/07/18 17:30 76 15 93 L Intake and Output 08/08/18 08/08/18 08/08/18 06:59 14:59 22:59 Intake Total 951.436 592.786 92 Output Total 1360 390 65 Balance -408.564 202.786 27 Intake: IV 901 348 92 ACETAMINOPHEN IV (For NPO 100 ) 1,000 mg In Empty Bag 1 bag @ 400 mls/hr IVPB Q6HR [facility] Rx#:[id number] CO/CI 270 Lactated Ringers 1,000 ml 450 300 80 @ 20 mls/hr IV .Q24H [facility] Rx#:[id number] Pressure Bag 81 48 12 Intake, IV Titration 50.436 44.786 Amount Clevidipine Butyrate 25 36.034 38.667 mg In Empty Bag 1 bag @ 1 MG/HR 2 mls/hr IV .Q24H [facility] Rx#:[id number] Insulin Regular 100 unit 14.402 6.119 In Sodium Chloride 0.9% 100 ml @ Per Protocol IV .Q0M [facility] Rx#:[id number] Oral 200 Output: Chest Tube Drainage 360 180 0 Left Pleural 230 120 0 Mediastinal x2 130 60 0 Urine 1000 210 65 Other: Voiding Method Indwelling Catheter Indwelling Catheter Indwelling Catheter Weight 82.2 kg 82.2 kg ABP, PAP, CO, CI - Last 8 Hours Arterial Blood Pressure 118/54 Arterial Blood Pressure 129/60 Arterial Blood Pressure 121/59 Arterial Blood Pressure 130/60 Arterial Blood Pressure 131/61 Arterial Blood Pressure 106/45 Arterial Blood Pressure 107/44 Arterial Blood Pressure 108/41 Arterial Blood Pressure 132/58 Arterial Blood Pressure 122/52 Cardiac Output 4.2 Cardiac Output 4.2 Cardiac Output 4.2 Cardiac Output 4.2 Cardiac Output 4.2 Cardiac Output 4.2 Cardiac Index 2.3 Cardiac Index 2.3 Cardiac Index 2.3 Cardiac Index 2.3 Cardiac Index 2.3 Cardiac Index 2.3 GENERAL EXAM: Patient is alert and oriented and doesn't appear to be in any acute distress HEENT: Normocephalic. Normal reaction of pupils, equal size, normal range of extraocular motion. No erythema or exudates in the throat. NECK: No masses, no nuchal rigidity. CHEST: No chest wall deformity. LUNGS: Diminished breath sounds at bases HEART: S1 and S2 normal with no audible mumurs or gallops. Regular rhythm, femorals equal on both sides.. ABDOMEN: No hepatosplenomegaly, normal bowel sounds, no guarding or rigidity. SKIN: No rashes CENTRAL NERVOUS SYSTEM: No focal deficits. EXTREMITIES: No cyanosis, clubbing or edema. Results 08/08/18 04:15 08/08/18 04:15 Cardiac Enzymes 08/08/18 Range/Units 04:15 AST 47 (17-59) U/L CBC 08/07/18 08/07/18 08/08/18 Range/Units 18:00 21:00 04:15 WBC 8.2 11.4 H 11.5 H (3.8-10.6) k/uL RBC 3.34 L 3.61 L 3.35 L (4.30-5.90) m/uL Hgb 10.4 L 11.4 L 10.6 L (13.0-17.5) gm/dL Hct 31.2 L 33.1 L 30.8 L (39.0-53.0) % Plt Count 151 164 175 (150-450) k/uL Comprehensive Metabolic Panel 08/07/18 08/07/18 08/08/18 Range/Units 18:00 21:00 04:15 Sodium 137 137 137 (137-145) mmol/L Potassium 4.1 3.8 4.0 (3.5-5.1) mmol/L Chloride 105 104 103 (98-107) mmol/L Carbon Dioxide 26 25 27 (22-30) mmol/L BUN 13 13 13 (9-20) mg/dL Creatinine 0.72 0.70 0.67 (0.66-1.25) mg/dL Glucose 135 H 141 H 120 H (74-99) mg/dL Calcium 8.5 8.5 8.3 L (8.4-10.2) mg/dL AST 47 (17-59) U/L ALT 28 (21-72) U/L Alkaline Phosphatase 34 L (38-126) U/L Total Protein 5.3 L (6.3-8.2) g/dL Albumin 3.5 (3.5-5.0) g/dL Current Medications Generic Name Dose Route Start Last Admin Trade Name Freq PRN Reason Stop Dose Admin Acetaminophen 1,000 mg 08/08/18 06:32 Tylenol Tab PO Q6HR PRN Fever and/ or Pain Hydrocodone Bitart/Acetaminophen 2 each 08/08/18 05:59 Morgan[place] 5-325 PO Q4HR PRN Severe Pain Hydrocodone Bitart/Acetaminophen 1 each 08/08/18 05:59 [place] 5-325 PO Q4HR PRN Moderate Pain Albuterol/Ipratropium 3 ml 08/07/18 14:45 Duoneb 0.5 Mg-3 Mg/3 Ml Soln INHALATION RT-Q2H PRN Shortness Of Breath Or Wheezing Albuterol/Ipratropium 3 ml 08/07/18 20:16 08/08/18 16:17 Duoneb 0.5 Mg-3 Mg/3 Ml Soln INHALATION 3 ml RT-QID [facility] Administration Amlodipine Besylate 5 mg 08/09/18 09:00 Norvasc PO DAILY [facility] Aspirin 325 mg 08/08/18 09:00 08/08/18 08:45 Aspirin PO 325 mg DAILY [facility] Administration Benzocaine/Menthol 1 each 08/07/18 14:45 08/07/18 22:00 Cepacol Lozenge MUCOUS MEM 1 each Q2H PRN Administration Sore Throat Bisacodyl 10 mg 08/08/18 09:00 Dulcolax RECTAL DAILY PRN Constipation Ezetimibe 10 mg 08/08/18 09:00 08/08/18 08:46 Zetia PO 10 mg DAILY [facility] Administration Heparin Sodium (Porcine) 5,000 unit 08/07/18 22:16 08/08/18 16:58 Heparin SQ 5,000 unit Q8HR [facility] Administration Albumin Human 250 ml/ IV 250 mls @ 250 mls/hr 08/07/18 14:45 08/07/18 21:31 Solution IVPB 08/09/18 14:46 250 mls/hr Q1HR PRN Administration For Volume Amiodarone HCl 150 mg/ 103 mls @ 618 mls/hr 08/07/18 14:45 Dextrose/Water IV .Q10M PRN A.FIB/FLUTTER Protocol Amiodarone HCl 360 mg/ 200 mls @ 33.333 mls/hr 08/07/18 14:45 Dextrose/Water IV .Q6H PRN A.FIB/FLUTTER Protocol 1 MG/MIN Amiodarone HCl 300 mg/ 250 mls @ 25 mls/hr 08/07/18 14:45 Dextrose/Water IV .Q10H PRN A.FIB/FLUTTER Protocol 0.5 MG/MIN Calcium Gluconate 2 gm/ Sodium 120 mls @ 100 mls/hr 08/07/18 14:45 Chloride IVPB 09/06/18 14:46 ONCE PRN Ionized Calcium less than 4.4 Clevidipine 25 mg/ IV Solution 50 mls @ 2 mls/hr 08/07/18 14:45 08/08/18 08:22 IV 2 mg/hr .Q24H [facility] 4 mls/hr Titration Protocol 1 MG/HR Lactated Ringer's 1,000 mls @ 20 mls/hr 08/07/18 14:45 08/08/18 12:33 Lactated Ringers IV 20 mls/hr .Q24H [facility] Administration Insulin Aspart 3 unit 08/08/18 17:30 Novolog SQ AC-TID [facility] Insulin Aspart 0 unit 08/08/18 17:30 Novolog SQ ACHS [facility] Protocol Ketorolac Tromethamine 15 mg 08/08/18 06:45 08/08/18 16:55 Toradol IVP 08/13/18 06:46 15 mg Q6HR [facility] Administration Magnesium Hydroxide 2,400 mg 08/08/18 09:00 Milk Of Magnesia PO BID PRN Constipation Metoclopramide HCl 10 mg 08/07/18 14:45 Reglan IVP Q4H PRN Nausea And Vomiting Metoprolol Tartrate 25 mg 08/08/18 21:00 Lopressor PO BID [facility] Miscellaneous Information 1 each 08/07/18 14:45 Magnesium Per Protocol MISCELLANE DAILY PRN Per Protocol Protocol Miscellaneous Information 1 each 08/07/18 14:45 Phosphorus Per Protocol MISCELLANE DAILY PRN Per Protocol Protocol Miscellaneous Information 1 each 08/07/18 14:45 Potassium Per Protocol MISCELLANE DAILY PRN Per Protocol Protocol Ondansetron HCl 4 mg 08/07/18 14:45 Zofran IVP Q6HR PRN Nausea And Vomiting Pantoprazole Sodium 40 mg 08/09/18 07:30 Protonix PO AC-BRKFST [facility] Senna/Docusate Sodium 2 each 08/08/18 21:00 Senokot-S PO HS [facility] Sodium Chloride 10 ml 08/07/18 21:00 08/08/18 10:58 Saline Flush IV 10 ml BID [facility] Administration Intake and Output 08/08/18 08/08/18 08/08/18 06:59 14:59 22:59 Intake Total 951.436 592.786 92 Output Total 1360 390 65 Balance -408.564 202.786 27 Intake: IV 901 348 92 ACETAMINOPHEN IV (For NPO 100 ) 1,000 mg In Empty Bag 1 bag @ 400 mls/hr IVPB Q6HR [facility] Rx#:[id number] CO/CI 270 Lactated Ringers 1,000 ml 450 300 80 @ 20 mls/hr IV .Q24H [facility] Rx#:[id number] Pressure Bag 81 48 12 Intake, IV Titration 50.436 44.786 Amount Clevidipine Butyrate 25 36.034 38.667 mg In Empty Bag 1 bag @ 1 MG/HR 2 mls/hr IV .Q24H [facility] Rx#:[id number] Insulin Regular 100 unit 14.402 6.119 In Sodium Chloride 0.9% 100 ml @ Per Protocol IV .Q0M [facility] Rx#:[id number] Oral 200 Output: Chest Tube Drainage 360 180 0 Left Pleural 230 120 0 Mediastinal x2 130 60 0 Urine 1000 210 65 Other: Voiding Method Indwelling Catheter Indwelling Catheter Indwelling Catheter Weight 82.2 kg 82.2 kg Patient Weight 08/09/18 06:59 Weight 82.2 kg 08/08/18 04:15 08/08/18 04:15 EKG Interpretations (text) Sinus rhythm Assessment and Plan (1) S/P CABG (coronary artery bypass graft) Current Visit: Yes Status: Acute Code(s): Z95.1 - PRESENCE OF AORTOCORONARY BYPASS GRAFT SNOMED Code(s): 386411478 (2) CAD (coronary artery disease) Current Visit: Yes Status: Acute Code(s): I25.10 - ATHSCL HEART DISEASE OF [place] CORONARY ARTERY W/O ANG PCTRS SNOMED Code(s): 82935940 (3) History of hypertension Current Visit: Yes Status: Acute Code(s): Z86.79 - PERSONAL HISTORY OF OTHER DISEASES OF THE CIRCULATORY SYSTEM SNOMED Code(s): 739552732 Plan: Continue current management. Increase activity and incentive spirometry. Will follow
[2018-08-08 20:56] LABS: Glucose,Whole Blood 127 mg/dL (75-99)
[2018-08-08] MEDS: METOPROLOL TARTRATE 25 MG TAB PO SCH (21:26)
[2018-08-08] MEDS: SENNOSIDES-DOCUSATE SODIUM 1 EACH TAB PO SCH (21:26)
[2018-08-09] MEDS: HEPARIN SODIUM,PORCINE 5,000 UNIT/ML 1 ML VIAL SQ SCH ×4 (00:32→23:56)
[2018-08-09] MEDS: KETOROLAC 30 MG/ML 1 ML VIAL IVP SCH ×6 (00:32→23:58)
[2018-08-09 05:12] LABS: Ionized Calcium 4.7 mg/dL (4.5-5.3)
[2018-08-09 05:22] LABS: ALT 18 U/L (21-72); AST 36 U/L (17-59); African American GFR (CKD) >90 (>60 ml/min/1.73 sqM); Alkaline Phosphatase 37 U/L (38-126); Anion Gap 6 mmol/L; Blood Urea Nitrogen 18 mg/dL (9-20); Calcium 8.2 mg/dL (8.4-10.2); Carbon Dioxide 25 mmol/L (22-30); Chloride 100 mmol/L (98-107); Glucose 121 mg/dL (74-99); Potassium 4.3 mmol/L (3.5-5.1); Sodium 131 mmol/L (137-145); Total Bilirubin 0.8 mg/dL (0.2-1.3); Total Protein 4.9 g/dL (6.3-8.2)
[2018-08-09 06:20] LABS: Basophils % (A) 0 %; Eosinophils # (A) 0.1 k/uL (0-0.7); Eosinophils % (A) 1 %; HCT 27.1 % (39.0-53.0); HGB 9.3 gm/dL (13.0-17.5); Lymphocytes # (A) 1.3 k/uL (1.0-4.8); Lymphocytes % (A) 11 %; MCH 31.5 pg (25.0-35.0); MCHC 34.3 g/dL (31.0-37.0); MCV 91.8 fL (80.0-100.0); Mean Platelet Volume 7.2; Monocytes # (A) 0.9 k/uL (0-1.0); Monocytes % (A) 8 %; Neutrophils # (A) 8.9 k/uL (1.3-7.7); Neutrophils % (A) 79 %; Platelet Count 152 k/uL (150-450); RBC 2.95 m/uL (4.30-5.90); RDW 14.3 % (11.5-15.5); WBC 11.3 k/uL (3.8-10.6)
[2018-08-09] MEDS: PANTOPRAZOLE 40 MG TABLET PO SCH (06:59)
[2018-08-09] MEDS: INSULIN ASPART (NovoLOG) 100 UNIT/ML VIAL SQ SCH ×7 (07:17→20:23)
[2018-08-09 07:23] LABS: Glucose,Whole Blood 138 mg/dL (75-99)
[2018-08-09] MEDS: IPRATROPIUM-ALBUTEROL 3 ML NEB INHALATION SCH ×4 (08:02→20:07)
--- NOTE | 2018-08-09 08:09 | P.PN ---
Subjective Progress Note Date: 08/08/18 this is a pleasant 78-year-old gentleman well known to my practice, underlying history of CAD, prior cardiac stents, CHF, prostate cancer 2010, obstructive sleep apnea, admitted to ICU secondary to CABG procedure. He underwent a left cardiac cath 08/01/2018, after he a positive stress test suggestive off inferolateral reversible defect and fixed defect hypokinesia. He has previous interventions involving the LAD distal RCA PLB branch of RCA between 2001 and 2006.last cardiac cath showed 80% stenoses of the stented segment RCA, mid LAD stented with 50% in-stent stenosis, distal aspect of the stent was a 90% stenosis obtuse marginal branch 70% stenosis another mid lesion of 70-80% stenosis left main 25-30% and has a distal 25% lesion,. Patient underwentfour- vessel CABG on 08/07/2018by Dr. Avitia, requiring BLACKWELL to the LAD, saphenous vein graft to obtuse marginal artery, saphenous vein graft to posterior descending artery saphenous vein graft to posterolateral branch of the right coronary art torito. Patient currently is in ICU with mechanical ventilation receiving Levophed dripand nitro drip amiodarone dripd weaning parameters for sedation. 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 Carlin 08/08: Patient was extubated last evening. He is currently pulse oxing 93% on 7 L high flow nasal cannula. He has been afebrile, heart rate in 80s. Blood pressure 129/59. Repeat hemoglobin 10.6, white count 11.5. Blood sugars running between 116- 144. alarm security or surveillance monitor is a sinus rhythm. Patient has been weaned off Cleviprex and IV nitro for radial artery spasm prophylaxis. The patient is currently on insulin drip which we will transition over to an NovoLog scheduled with meals and to hold if blood sugars less than 110. Patient does not diagnosis of diabetes. His hemoglobin A1c was 5.7 preoperatively. Objective - Vital Signs Vital signs: Vital Signs Temp 97.6 F 08/08/18 04:00 Pulse 80 08/08/18 09:11 Resp 30 H 08/08/18 09:00 BP 104/69 08/08/18 04:00 Pulse Ox 93 L 08/08/18 09:01 Intake & Output 08/07/18 08/08/18 08/08/18 18:59 06:59 18:59 Intake Total 641.333 5701.716 159.899 Output Total 3150 2440 110 Balance -2649.552 -679.284 49.899 Weight 82.2 kg 82.2 kg Intake: IV 448 1667 118 ACETAMINOPHEN IV (For NPO 100 100 ) 1,000 mg In Empty Bag 1 bag @ 400 mls/hr IVPB Q6HR [facility] Rx#:[id number] CO/CI 80 400 Lactated Ringers 1,000 ml 200 650 100 @ 20 mls/hr IV .Q24H [facility]ASPAL Rx#:[id number] Magnesium Sulfate-D5w Pmx 200 1 gm In Dextrose/Water 1 100ml.bag @ 100 mls/hr IVPB Q1H [facility] Rx#: [id number] Potassium Chloride 10 meq 200 In Water For Injection 1 100ml.bag @ 100 mls/hr IVPB Q1H J[facility]AL Rx#: [id number] Pressure Bag 36 117 18 Intake, IV Titration 52.448 93.716 41.899 Amount Clevidipine Butyrate 25 5.200 72.034 38.667 mg In Empty Bag 1 bag @ 1 MG/HR 2 mls/hr IV .Q24H [facility] Rx#:[id number] Insulin Regular 100 unit 0.202 21.682 3.232 In Sodium Chloride 0.9% 100 ml @ Per Protocol IV .Q0M [facility] Rx#:[id number] Propofol 1,000 mg In 47.046 Empty Bag 1 bag @ Titrate IV .Q0M [facility]AL Rx#: [id number] Output: Chest Tube Drainage 180 515 50 Left Pleural 40 305 50 Mediastinal x2 140 210 0 Urine 1770 1925 60 Estimated Blood Loss 1200 Other: Voiding Method Indwelling Catheter Indwelling Catheter Indwelling Catheter ABP, PAP, CO, CI - Last Documented Arterial Blood Pressure 129/59 Pulmonary Artery Pressure 25/17 Cardiac Output 4.2 Cardiac Index 2.3 - Exam Review Of Systems: Constitutional: No fever, no chills, no night sweats. No weight change. No weakness, reports fatigue. EENT: No headache. No blurred vision or double vision, no loss of vision. No loss of Hearing, no ringing in the ears, no dizziness. No nasal drainage or congestion. No epistaxis. No sore throat. Lungs: No shortness of breath, cough, no sputum production. No wheezing. Cardiovascular: No chest pain, reports chest discomfort, no lower extremity edema. No palpitations. No paroxysmal nocturnal dyspnea. No orthopnea. No lightheadedness or dizziness. No syncopal episodes. Abdominal: No abdominal pain. No nausea, vomiting. No diarrhea. No constipation. No bloody or tarry stools.. No loss of appetite. Genitourinary: No urinary retention. Musculoskeletal: No myalgias. No muscle weakness, no gait dysfunction, no frequent falls. No back pain. No neck pain. Integumentary: No wounds, no lesions. No rash or pruritus. No unusual bruising. No change in hair or nails. Neurologic: No aphasia. No facial droop. No change in mentation. No head injury. No headache. No paralysis. No paresthesia. Psychiatric: No depression. No anxiety. No mood swings. Endocrine: No abnormal blood sugars. No weight change. No excessive sweating or thirst. No cold intolerance. Gen: This is an 78-year-old male. He is resting a recliner appears to be comfortable and in no acute distress. Family members are at the bedside. HEENT: Head is atraumatic, normocephalic. Pupils equal, round. Sclerae is anicteric. Cordis in place right side. NECK: Supple. No JVD. No lymphadenopathy. No thyromegaly. LUNGS: Diminished bilaterally Clear to auscultation. No wheezes or rhonchi. No intercostal retractions. Mediastinal and left pleural chest tube in place. HEART: Regular rate and rhythm. No murmur. ABDOMEN: Soft. Bowel sounds are present. No masses. No tenderness. Hanson draining clear tamera urine. EXTREMITIES: No pedal edema. No calf tenderness. SCDs and ASAD hose. NEUROLOGICAL: Patient is awake, alert and oriented x3. Cranial nerves 2 through 12 are grossly intact. - Labs CBC & Chem 7: 08/09/18 04:40 08/09/18 04:40 Labs: Abnormal Lab Results - Last 24 Hours (Table) 08/01/18 08/07/18 08/07/18 Range/Units 17:05 08:40 10:08 WBC (3.8-10.6) k/uL RBC (4.30-5.90) m/uL Hgb (13.0-17.5) gm/dL Hct (39.0-53.0) % Plt Count (150-450) k/uL Neutrophils # (1.3-7.7) k/uL Lymphocytes # (1.0-4.8) k/uL APTT (22.0-30.0) sec ABG pH (7.35-7.45) ABG pCO2 (35-45) mmHg ABG pO2 156 H 118 H (83-108) mmHg ABG HCO3 26 H (21-25) mmol/L ABG Total CO2 27 H 26 H (19-24) mmol/L ABG O2 Saturation 99.8 H 99.2 H (94-97) % ABG Hematocrit (34.0-46.0) % ABG Sodium (135-146) mmol/L ABG Potassium (3.4-4.5) mmol/L ABG Ionized Calcium (4.5-5.3) mg/dL ABG Glucose 116 H 145 H (75-99) mg/dL ABG Lactic Acid (0.5-1.6) mmol/L Hemoglobin 12.7 L 12.1 L (13.0-17.5) gm/dL Chloride (98-107) mmol/L Glucose (74-99) mg/dL POC Glucose (mg/dL) (75-99) mg/dL Calcium (8.4-10.2) mg/dL Ionized Calcium Zulma (4.5-5.3) mg/dL Magnesium (1.6-2.3) mg/dL ALT (21-72) U/L Alkaline Phosphatase (38-126) U/L Total Protein (6.3-8.2) g/dL Albumin (3.5-5.0) g/dL Arterial Blood Potassium (3.4-4.5) mmol/L Arterial Blood Glucose 116 H 145 H (75-99) mg/dL Crossmatch See Detail 08/07/18 08/07/18 08/07/18 Range/Units 11:03 11:33 12:02 WBC (3.8-10.6) k/uL RBC (4.30-5.90) m/uL Hgb (13.0-17.5) gm/dL Hct (39.0-53.0) % Plt Count (150-450) k/uL Neutrophils # (1.3-7.7) k/uL Lymphocytes # (1.0-4.8) k/uL APTT (22.0-30.0) sec ABG pH (7.35-7.45) ABG pCO2 (35-45) mmHg ABG pO2 334 H 274 H 396 H (83-108) mmHg ABG HCO3 (21-25) mmol/L ABG Total CO2 25 H 25 H 26 H (19-24) mmol/L ABG O2 Saturation 100.0 H 100.0 H 100.0 H (94-97) % ABG Hematocrit 26 L 27 L 27 L (34.0-46.0) % ABG Sodium 130 L 131 L 134 L (135-146) mmol/L ABG Potassium 5.8 H 6.2 H* 5.5 H (3.4-4.5) mmol/L ABG Ionized Calcium 4.1 L 4.2 L 4.2 L (4.5-5.3) mg/dL ABG Glucose 231 H 236 H 197 H (75-99) mg/dL ABG Lactic Acid 1.8 H (0.5-1.6) mmol/L Hemoglobin 8.6 L 8.7 L 8.6 L (13.0-17.5) gm/dL Chloride (98-107) mmol/L Glucose (74-99) mg/dL POC Glucose (mg/dL) (75-99) mg/dL Calcium (8.4-10.2) mg/dL Ionized Calcium Zulma (4.5-5.3) mg/dL Magnesium (1.6-2.3) mg/dL ALT (21-72) U/L Alkaline Phosphatase (38-126) U/L Total Protein (6.3-8.2) g/dL Albumin (3.5-5.0) g/dL Arterial Blood Potassium 5.8 H 6.2 H* 5.5 H (3.4-4.5) mmol/L Arterial Blood Glucose 231 H 236 H 197 H (75-99) mg/dL Crossmatch 08/07/18 08/07/18 08/07/18 Range/Units 12:53 13:41 14:59 WBC (3.8-10.6) k/uL RBC 3.02 L (4.30-5.90) m/uL Hgb 9.6 L D (13.0-17.5) gm/dL Hct 28.0 L (39.0-53.0) % Plt Count 119 L D (150-450) k/uL Neutrophils # (1.3-7.7) k/uL Lymphocytes # 0.7 L (1.0-4.8) k/uL APTT (22.0-30.0) sec ABG pH 7.34 L 7.34 L (7.35-7.45) ABG pCO2 (35-45) mmHg ABG pO2 288 H 242 H (83-108) mmHg ABG HCO3 (21-25) mmol/L ABG Total CO2 25 H 26 H (19-24) mmol/L ABG O2 Saturation 100.0 H 100.0 H (94-97) % ABG Hematocrit 24 L 28 L (34.0-46.0) % ABG Sodium (135-146) mmol/L ABG Potassium 4.6 H (3.4-4.5) mmol/L ABG Ionized Calcium 4.2 L 4.0 L (4.5-5.3) mg/dL ABG Glucose 158 H 143 H (75-99) mg/dL ABG Lactic Acid 3.1 H* 2.2 H* (0.5-1.6) mmol/L Hemoglobin 7.8 L 9.2 L (13.0-17.5) gm/dL Chloride (98-107) mmol/L Glucose (74-99) mg/dL POC Glucose (mg/dL) (75-99) mg/dL Calcium (8.4-10.2) mg/dL Ionized Calcium Zulma (4.5-5.3) mg/dL Magnesium (1.6-2.3) mg/dL ALT (21-72) U/L Alkaline Phosphatase (38-126) U/L Total Protein (6.3-8.2) g/dL Albumin (3.5-5.0) g/dL Arterial Blood Potassium 4.6 H (3.4-4.5) mmol/L Arterial Blood Glucose 158 H 143 H (75-99) mg/dL Crossmatch 08/07/18 08/07/18 08/07/18 Range/Units 14:59 14:59 15:25 WBC (3.8-10.6) k/uL RBC (4.30-5.90) m/uL Hgb (13.0-17.5) gm/dL Hct (39.0-53.0) % Plt Count (150-450) k/uL Neutrophils # (1.3-7.7) k/uL Lymphocytes # (1.0-4.8) k/uL APTT 31.2 H (22.0-30.0) sec ABG pH (7.35-7.45) ABG pCO2 49 H (35-45) mmHg ABG pO2 303 H (83-108) mmHg ABG HCO3 27 H (21-25) mmol/L ABG Total CO2 28 H (19-24) mmol/L ABG O2 Saturation 99.7 H (94-97) % ABG Hematocrit (34.0-46.0) % ABG Sodium (135-146) mmol/L ABG Potassium (3.4-4.5) mmol/L ABG Ionized Calcium (4.5-5.3) mg/dL ABG Glucose (75-99) mg/dL ABG Lactic Acid (0.5-1.6) mmol/L Hemoglobin (13.0-17.5) gm/dL Chloride 108 H (98-107) mmol/L Glucose (74-99) mg/dL POC Glucose (mg/dL) (75-99) mg/dL Calcium (8.4-10.2) mg/dL Ionized Calcium Zulma 5.4 H (4.5-5.3) mg/dL Magnesium 2.5 H (1.6-2.3) mg/dL ALT 18 L (21-72) U/L Alkaline Phosphatase 24 L (38-126) U/L Total Protein 4.3 L (6.3-8.2) g/dL Albumin 2.7 L (3.5-5.0) g/dL Arterial Blood Potassium (3.4-4.5) mmol/L Arterial Blood Glucose (75-99) mg/dL Crossmatch 08/07/18 08/07/18 08/07/18 Range/Units 16:01 17:19 18:00 WBC (3.8-10.6) k/uL RBC 3.34 L (4.30-5.90) m/uL Hgb 10.4 L (13.0-17.5) gm/dL Hct 31.2 L (39.0-53.0) % Plt Count (150-450) k/uL Neutrophils # (1.3-7.7) k/uL Lymphocytes # 0.7 L (1.0-4.8) k/uL APTT (22.0-30.0) sec ABG pH (7.35-7.45) ABG pCO2 (35-45) mmHg ABG pO2 (83-108) mmHg ABG HCO3 (21-25) mmol/L ABG Total CO2 (19-24) mmol/L ABG O2 Saturation (94-97) % ABG Hematocrit (34.0-46.0) % ABG Sodium (135-146) mmol/L ABG Potassium (3.4-4.5) mmol/L ABG Ionized Calcium (4.5-5.3) mg/dL ABG Glucose (75-99) mg/dL ABG Lactic Acid (0.5-1.6) mmol/L Hemoglobin (13.0-17.5) gm/dL Chloride (98-107) mmol/L Glucose (74-99) mg/dL POC Glucose (mg/dL) 100 H 146 H (75-99) mg/dL Calcium (8.4-10.2) mg/dL Ionized Calcium Zulma (4.5-5.3) mg/dL Magnesium (1.6-2.3) mg/dL ALT (21-72) U/L Alkaline Phosphatase (38-126) U/L Total Protein (6.3-8.2) g/dL Albumin (3.5-5.0) g/dL Arterial Blood Potassium (3.4-4.5) mmol/L Arterial Blood Glucose (75-99) mg/dL Crossmatch 08/07/18 08/07/18 08/07/18 Range/Units 18:00 18:01 18:58 WBC (3.8-10.6) k/uL RBC (4.30-5.90) m/uL Hgb (13.0-17.5) gm/dL Hct (39.0-53.0) % Plt Count (150-450) k/uL Neutrophils # (1.3-7.7) k/uL Lymphocytes # (1.0-4.8) k/uL APTT (22.0-30.0) sec ABG pH (7.35-7.45) ABG pCO2 (35-45) mmHg ABG pO2 (83-108) mmHg ABG HCO3 (21-25) mmol/L ABG Total CO2 (19-24) mmol/L ABG O2 Saturation (94-97) % ABG Hematocrit (34.0-46.0) % ABG Sodium (135-146) mmol/L ABG Potassium (3.4-4.5) mmol/L ABG Ionized Calcium (4.5-5.3) mg/dL ABG Glucose (75-99) mg/dL ABG Lactic Acid (0.5-1.6) mmol/L Hemoglobin (13.0-17.5) gm/dL Chloride (98-107) mmol/L Glucose 135 H (74-99) mg/dL POC Glucose (mg/dL) 138 H 145 H (75-99) mg/dL Calcium (8.4-10.2) mg/dL Ionized Calcium Zulma (4.5-5.3) mg/dL Magnesium (1.6-2.3) mg/dL ALT (21-72) U/L Alkaline Phosphatase (38-126) U/L Total Protein (6.3-8.2) g/dL Albumin (3.5-5.0) g/dL Arterial Blood Potassium (3.4-4.5) mmol/L Arterial Blood Glucose (75-99) mg/dL Crossmatch 08/07/18 08/07/18 08/07/18 Range/Units 19:20 19:58 20:58 WBC (3.8-10.6) k/uL RBC (4.30-5.90) m/uL Hgb (13.0-17.5) gm/dL Hct (39.0-53.0) % Plt Count (150-450) k/uL Neutrophils # (1.3-7.7) k/uL Lymphocytes # (1.0-4.8) k/uL APTT (22.0-30.0) sec ABG pH (7.35-7.45) ABG pCO2 (35-45) mmHg ABG pO2 75 L (83-108) mmHg ABG HCO3 27 H (21-25) mmol/L ABG Total CO2 28 H (19-24) mmol/L ABG O2 Saturation (94-97) % ABG Hematocrit (34.0-46.0) % ABG Sodium (135-146) mmol/L ABG Potassium (3.4-4.5) mmol/L ABG Ionized Calcium (4.5-5.3) mg/dL ABG Glucose (75-99) mg/dL ABG Lactic Acid (0.5-1.6) mmol/L Hemoglobin (13.0-17.5) gm/dL Chloride (98-107) mmol/L Glucose (74-99) mg/dL POC Glucose (mg/dL) 163 H 144 H (75-99) mg/dL Calcium (8.4-10.2) mg/dL Ionized Calcium Zulma (4.5-5.3) mg/dL Magnesium (1.6-2.3) mg/dL ALT (21-72) U/L Alkaline Phosphatase (38-126) U/L Total Protein (6.3-8.2) g/dL Albumin (3.5-5.0) g/dL Arterial Blood Potassium (3.4-4.5) mmol/L Arterial Blood Glucose (75-99) mg/dL Crossmatch 08/07/18 08/07/18 08/07/18 Range/Units 21:00 21:00 22:12 WBC 11.4 H (3.8-10.6) k/uL RBC 3.61 L (4.30-5.90) m/uL Hgb 11.4 L (13.0-17.5) gm/dL Hct 33.1 L (39.0-53.0) % Plt Count (150-450) k/uL Neutrophils # 10.1 H (1.3-7.7) k/uL Lymphocytes # 0.6 L (1.0-4.8) k/uL APTT (22.0-30.0) sec ABG pH (7.35-7.45) ABG pCO2 (35-45) mmHg ABG pO2 (83-108) mmHg ABG HCO3 (21-25) mmol/L ABG Total CO2 (19-24) mmol/L ABG O2 Saturation (94-97) % ABG Hematocrit (34.0-46.0) % ABG Sodium (135-146) mmol/L ABG Potassium (3.4-4.5) mmol/L ABG Ionized Calcium (4.5-5.3) mg/dL ABG Glucose (75-99) mg/dL ABG Lactic Acid (0.5-1.6) mmol/L Hemoglobin (13.0-17.5) gm/dL Chloride (98-107) mmol/L Glucose 141 H (74-99) mg/dL POC Glucose (mg/dL) 134 H (75-99) mg/dL Calcium (8.4-10.2) mg/dL Ionized Calcium Zulma (4.5-5.3) mg/dL Magnesium (1.6-2.3) mg/dL ALT (21-72) U/L Alkaline Phosphatase (38-126) U/L Total Protein (6.3-8.2) g/dL Albumin (3.5-5.0) g/dL Arterial Blood Potassium (3.4-4.5) mmol/L Arterial Blood Glucose (75-99) mg/dL Crossmatch 08/07/18 08/07/18 08/08/18 Range/Units 23:07 23:56 02:03 WBC (3.8-10.6) k/uL RBC (4.30-5.90) m/uL Hgb (13.0-17.5) gm/dL Hct (39.0-53.0) % Plt Count (150-450) k/uL Neutrophils # (1.3-7.7) k/uL Lymphocytes # (1.0-4.8) k/uL APTT (22.0-30.0) sec ABG pH (7.35-7.45) ABG pCO2 (35-45) mmHg ABG pO2 (83-108) mmHg ABG HCO3 (21-25) mmol/L ABG Total CO2 (19-24) mmol/L ABG O2 Saturation (94-97) % ABG Hematocrit (34.0-46.0) % ABG Sodium (135-146) mmol/L ABG Potassium (3.4-4.5) mmol/L ABG Ionized Calcium (4.5-5.3) mg/dL ABG Glucose (75-99) mg/dL ABG Lactic Acid (0.5-1.6) mmol/L Hemoglobin (13.0-17.5) gm/dL Chloride (98-107) mmol/L Glucose (74-99) mg/dL POC Glucose (mg/dL) 150 H 162 H 133 H (75-99) mg/dL Calcium (8.4-10.2) mg/dL Ionized Calcium Zulma (4.5-5.3) mg/dL Magnesium (1.6-2.3) mg/dL ALT (21-72) U/L Alkaline Phosphatase (38-126) U/L Total Protein (6.3-8.2) g/dL Albumin (3.5-5.0) g/dL Arterial Blood Potassium (3.4-4.5) mmol/L Arterial Blood Glucose (75-99) mg/dL Crossmatch 08/08/18 08/08/18 08/08/18 Range/Units 03:24 04:09 04:15 WBC 11.5 H (3.8-10.6) k/uL RBC 3.35 L (4.30-5.90) m/uL Hgb 10.6 L (13.0-17.5) gm/dL Hct 30.8 L (39.0-53.0) % Plt Count (150-450) k/uL Neutrophils # 10.3 H (1.3-7.7) k/uL Lymphocytes # 0.4 L (1.0-4.8) k/uL APTT (22.0-30.0) sec ABG pH (7.35-7.45) ABG pCO2 (35-45) mmHg ABG pO2 (83-108) mmHg ABG HCO3 (21-25) mmol/L ABG Total CO2 (19-24) mmol/L ABG O2 Saturation (94-97) % ABG Hematocrit (34.0-46.0) % ABG Sodium (135-146) mmol/L ABG Potassium (3.4-4.5) mmol/L ABG Ionized Calcium (4.5-5.3) mg/dL ABG Glucose (75-99) mg/dL ABG Lactic Acid (0.5-1.6) mmol/L Hemoglobin (13.0-17.5) gm/dL Chloride (98-107) mmol/L Glucose (74-99) mg/dL POC Glucose (mg/dL) 143 H 130 H (75-99) mg/dL Calcium (8.4-10.2) mg/dL Ionized Calcium Zulma (4.5-5.3) mg/dL Magnesium (1.6-2.3) mg/dL ALT (21-72) U/L Alkaline Phosphatase (38-126) U/L Total Protein (6.3-8.2) g/dL Albumin (3.5-5.0) g/dL Arterial Blood Potassium (3.4-4.5) mmol/L Arterial Blood Glucose (75-99) mg/dL Crossmatch 08/08/18 08/08/18 08/08/18 Range/Units 04:15 04:53 06:46 WBC (3.8-10.6) k/uL RBC (4.30-5.90) m/uL Hgb (13.0-17.5) gm/dL Hct (39.0-53.0) % Plt Count (150-450) k/uL Neutrophils # (1.3-7.7) k/uL Lymphocytes # (1.0-4.8) k/uL APTT (22.0-30.0) sec ABG pH (7.35-7.45) ABG pCO2 (35-45) mmHg ABG pO2 (83-108) mmHg ABG HCO3 (21-25) mmol/L ABG Total CO2 (19-24) mmol/L ABG O2 Saturation (94-97) % ABG Hematocrit (34.0-46.0) % ABG Sodium (135-146) mmol/L ABG Potassium (3.4-4.5) mmol/L ABG Ionized Calcium (4.5-5.3) mg/dL ABG Glucose (75-99) mg/dL ABG Lactic Acid (0.5-1.6) mmol/L Hemoglobin (13.0-17.5) gm/dL Chloride (98-107) mmol/L Glucose 120 H (74-99) mg/dL POC Glucose (mg/dL) 139 H 144 H (75-99) mg/dL Calcium 8.3 L (8.4-10.2) mg/dL Ionized Calcium Zulma (4.5-5.3) mg/dL Magnesium (1.6-2.3) mg/dL ALT (21-72) U/L Alkaline Phosphatase 34 L (38-126) U/L Total Protein 5.3 L (6.3-8.2) g/dL Albumin (3.5-5.0) g/dL Arterial Blood Potassium (3.4-4.5) mmol/L Arterial Blood Glucose (75-99) mg/dL Crossmatch 08/08/18 08/08/18 Range/Units 08:18 09:06 WBC (3.8-10.6) k/uL RBC (4.30-5.90) m/uL Hgb (13.0-17.5) gm/dL Hct (39.0-53.0) % Plt Count (150-450) k/uL Neutrophils # (1.3-7.7) k/uL Lymphocytes # (1.0-4.8) k/uL APTT (22.0-30.0) sec ABG pH (7.35-7.45) ABG pCO2 (35-45) mmHg ABG pO2 (83-108) mmHg ABG HCO3 (21-25) mmol/L ABG Total CO2 (19-24) mmol/L ABG O2 Saturation (94-97) % ABG Hematocrit (34.0-46.0) % ABG Sodium (135-146) mmol/L ABG Potassium (3.4-4.5) mmol/L ABG Ionized Calcium (4.5-5.3) mg/dL ABG Glucose (75-99) mg/dL ABG Lactic Acid (0.5-1.6) mmol/L Hemoglobin (13.0-17.5) gm/dL Chloride (98-107) mmol/L Glucose (74-99) mg/dL POC Glucose (mg/dL) 127 H 116 H (75-99) mg/dL Calcium (8.4-10.2) mg/dL Ionized Calcium Zulma (4.5-5.3) mg/dL Magnesium (1.6-2.3) mg/dL ALT (21-72) U/L Alkaline Phosphatase (38-126) U/L Total Protein (6.3-8.2) g/dL Albumin (3.5-5.0) g/dL Arterial Blood Potassium (3.4-4.5) mmol/L Arterial Blood Glucose (75-99) mg/dL Crossmatch Assessment and Plan Plan: 1. CAD with 4 vessel quadruple bypass on 08/07/2018 BLACKWELL to the LAD, saphenous vein graft to obtuse marginal artery, saphenous vein graft to posterior descending artery, saphenous vein graft to posterolateral branch of RCA. Patient successfully extubated and managed by Dr. Carlin. Continue current plan of care per cardiothoracic team. Continue aspirin, Zetia, Lopressor. Norvasc was started for radial artery spasm prophylaxis. Nitroglycerin drip off. Wean Cleviprex. Continue incentive spirometry. Insulin drip will be transitioned to NovoLog scheduled 3 units with meals and hold for blood sugar less than 110. 2. CAD with prior history with 7 cardiac stents between [id number] 3. History of diastolic CHF, with EF 50-55% July 2018, normal right medical systolic pressure, has mild MR and mild TR, moderate aortic stenosis 4. Moderate aortic stenosis with peak gradient across the valve of 38 mmhg/20 mmHg. surveilance thru echo as OP 5. History of prostate cancer, with prior radiation treatment, no active treatments ongoing 6. History of obstructive sleep apnea, on CPAP device at home 7. hypertension, would resume him lisinopril once blood pressure stabilizes 8. gi prophylaxis- protonix /stool softeners 9. dvt prophylaxis heparin SQ Discharge plan: To be determined Impression and plan of care have been directed as dictated by the signing physician. Monique Linder nurse practitioner acting as scribe for signing physician.
--- NOTE | 2018-08-09 08:24 | P.PN ---
Subjective Progress Note Date: 08/09/18 Principal diagnosis: Severe triple vessel coronary artery disease. Previous medical history of coronary artery disease with myocardial infarction in the past status post multiple coronary stenting, moderate aortic stenosis on transthoracic echocardiogram but no gradient across the aortic valve on heart catheterization, hypertension, hyperlipidemia, prostate cancer status post radiation approximately 7-8 years ago, obstructive sleep apnea with home CPAP use, no tobacco dependence but long history of secondhand smoke exposure, and multiple male family members DC stiffer myocardial infarction before 70 years of age. POD#2 coronary bypass grafting 4 vessels, left internal mammary artery to the left anterior descending artery, reverse saphenous vein graft to the obtuse ma rginal artery, reverse saphenous vein graft to the posterior descending artery, reverse saphenous vein graft to the posterior lateral branch of the right coronary artery. Endoscopic harvesting of the left greater saphenous vein. Epi-aortic ultrasound. Intraoperative transesophageal echocardiogram. Postoperative acute blood loss anemia, expected outcome given hemodilution and cardiopulmonary bypass pump. The patient is currently sitting up in a recliner in the intensive care unit in no acute distress. States pain is well controlled on current medication regimen, denies shortness of breath. Remains in normal sinus rhythm. Hemodynamically stable on no inotropes or pressors. No new complaints. Objective - Vital Signs Vital signs: Vital Signs Temp 98.9 F 08/09/18 04:00 Pulse 80 08/09/18 07:00 Resp 24 08/09/18 07:00 BP 104/69 08/08/18 04:00 Pulse Ox 92 L 08/09/18 07:00 Intake & Output 08/08/18 08/09/18 08/09/18 18:59 06:59 18:59 Intake Total 776.786 505 73 Output Total 540 905 115 Balance 236.786 -400 -42 Weight 82.2 kg Intake: IV 532 235 13 Lactated Ringers 1,000 ml 460 190 10 @ 20 mls/hr IV .Q24H [facility] Rx#:[id number] Pressure Bag 72 45 3 Intake, IV Titration 44.786 Amount Clevidipine Butyrate 25 38.667 mg In Empty Bag 1 bag @ 1 MG/HR 2 mls/hr IV .Q24H [facility] Rx#:[id number] Insulin Regular 100 unit 6.119 In Sodium Chloride 0.9% 100 ml @ Per Protocol IV .Q0M [facility] Rx#:[id number] Oral 200 270 60 Output: Chest Tube Drainage 180 130 70 Left Pleural 120 60 60 Mediastinal x2 60 70 10 Urine 360 775 45 Other: Voiding Method Indwelling Catheter Indwelling Catheter ABP, PAP, CO, CI - Last Documented Arterial Blood Pressure 143/74 Pulmonary Artery Pressure 25/17 Cardiac Output 4.2 Cardiac Index 2.3 - Constitutional General appearance: Present: cooperative, no acute distress - Respiratory Details: Lungs sounds diminished bilaterally. Respirations even, nonlabored. Currently on 4 L nasal cannula with oxygen saturation 91%. Only able to achieve 500 mL on his incentive spirometry. Stronger cough than yesterday. Mediastinal chest tube to continuous wall suction, 40 mL serosanguineous drainage overnight, 150 mL in the last 24 hours. Left pleural chest tube to continuous wall suction, 20 mL serosanguineous overnight, 250 mL in the last 24 hours. No air leaks present. - Cardiovascular Details: S1, S2 present. Regular rate and rhythm, sinus rhythm with occasional PVCs on telemetry. Sternum stable. A/V epicardial pacemaker wires present, grounded. Palpable peripheral pulses bilaterally. No edema present. No calf pain or tenderness. Right internal jugular Cordis, right radial arterial line present. Antiembolism stockings, SCDs present. Heart hugger in place with patient demonstrating appropriate use. - Gastrointestinal Gastrointestinal Comment(s): Abdomen soft, nontender, nondistended. Active bowel sounds present 4 quadrants. Tolerating full liquids. Positive flatus. - Genitourinary Genitourinary Comment(s): Hanson present draining clear, yellow urine. Output 30-45 mL/h initially overnight, increasing to 100-175 mL/h this morning. - Integumentary Integumentary Comment(s): Skin is warm and dry with evidence of good perfusion. Anterior chest incision well approximated and covered with dry intact dressing. Left lower extremity EVH site well approximated with Dermabond. - Neurologic Neurologic: Present: CNII-XII intact - Musculoskeletal Musculoskeletal: Present: gait normal, strength equal bilaterally - Psychiatric Psychiatric: Present: A&O x's 3, appropriate affect, intact judgment & insight - Allied health notes Allied health notes reviewed: nursing - Labs CBC & Chem 7: 08/09/18 04:40 08/09/18 04:40 Labs: Abnormal Lab Results - Last 24 Hours (Table) 0608/08/18 08/08/18 Range/Units 08:18 09:06 10:20 WBC (3.8-10.6) k/uL RBC (4.30-5.90) m/uL Hgb (13.0-17.5) gm/dL Hct (39.0-53.0) % Neutrophils # (1.3-7.7) k/uL Sodium (137-145) mmol/L Glucose (74-99) mg/dL POC Glucose (mg/dL) 127 H 116 H 137 H (75-99) mg/dL Calcium (8.4-10.2) mg/dL ALT (21-72) U/L Alkaline Phosphatase (38-126) U/L Total Protein (6.3-8.2) g/dL Albumin (3.5-5.0) g/dL 08/08/18 08/08/18 08/08/18 Range/Units 11:02 12:06 13:12 WBC (3.8-10.6) k/uL RBC (4.30-5.90) m/uL Hgb (13.0-17.5) gm/dL Hct (39.0-53.0) % Neutrophils # (1.3-7.7) k/uL Sodium (137-145) mmol/L Glucose (74-99) mg/dL POC Glucose (mg/dL) 137 H 126 H 124 H (75-99) mg/dL Calcium (8.4-10.2) mg/dL ALT (21-72) U/L Alkaline Phosphatase (38-126) U/L Total Protein (6.3-8.2) g/dL Albumin (3.5-5.0) g/dL 08/08/18 08/08/18 08/08/18 Range/Units 15:14 17:04 20:45 WBC (3.8-10.6) k/uL RBC (4.30-5.90) m/uL Hgb (13.0-17.5) gm/dL Hct (39.0-53.0) % Neutrophils # (1.3-7.7) k/uL Sodium (137-145) mmol/L Glucose (74-99) mg/dL POC Glucose (mg/dL) 115 H 143 H 127 H (75-99) mg/dL Calcium (8.4-10.2) mg/dL ALT (21-72) U/L Alkaline Phosphatase (38-126) U/L Total Protein (6.3-8.2) g/dL Albumin (3.5-5.0) g/dL 08/09/18 08/09/18 08/09/18 Range/Units 04:40 04:40 07:12 WBC 11.3 H (3.8-10.6) k/uL RBC 2.95 L (4.30-5.90) m/uL Hgb 9.3 L (13.0-17.5) gm/dL Hct 27.1 L (39.0-53.0) % Neutrophils # 8.9 H (1.3-7.7) k/uL Sodium 131 L (137-145) mmol/L Glucose 121 H (74-99) mg/dL POC Glucose (mg/dL) 138 H (75-99) mg/dL Calcium 8.2 L (8.4-10.2) mg/dL ALT 18 L (21-72) U/L Alkaline Phosphatase 37 L (38-126) U/L Total Protein 4.9 L (6.3-8.2) g/dL Albumin 3.0 L (3.5-5.0) g/dL - Imaging and Cardiology Chest x-ray: image reviewed Assessment and Plan Assessment: 1. Severe triple-vessel coronary artery disease, status post four-vessel CABG 2. History of coronary artery disease, myocardial infarction status post multiple coronary stenting 3. Moderate aortic stenosis per TTE without gradient across the aortic valve on heart catheterization 4. Hypertension 5. Hyperlipidemia 6. Prostate cancer status post radiation approximately 7-8 years ago 7. Obstructive sleep apnea with home CPAP use 8. Never smoker, long history of secondhand smoke exposure 9. Family history of significant coronary artery disease with from myocardial infarction 10. Postoperative acute blood loss anemia, expected Plan: 1. Continue aspirin, Zetia, beta marylou therapy. Will increase beta marylou as tolerated. No Plavix or statins as patient as intolerant. 2. Continue Norvasc for radial artery spasm prophylaxis. 3. Wean O2 as tolerated. Encourage incentive spirometry use 10 times every hour while awake. 4. Increase activity, ambulate as tolerated. PT/OT/cardiac rehab following. 5. Will monitor daily labs and x-rays. Electrolyte replacement per protocol. No blood transfusions. 6. Pain control with current medication regimen. 7. Discontinue cordis, arterial line. 8. Insulin management per primary care service 9. GI/DVT prophylaxis 10. Bronchodilators, CPAP per pulmonology. 11. Will discontinue mediastinal chest tube, likely will discontinue pleural chest tube. 12. Discontinue Hanson. Bladder scan every 6 hours, may straight cath for >300 cc residual. 13. More recommendations to follow based on patient's clinical course. Time with Patient: Greater than 30
--- NOTE | 2018-08-09 08:37 | XR ---
EXAMINATION TYPE: XR chest 1V portable DATE OF EXAM: 08/09/2018 COMPARISON: 08/08/2018 HISTORY: Status post cardiac surgery TECHNIQUE: Single frontal view of the chest is obtained. FINDINGS: Cardiomediastinal silhouette is enlarged. There is been removal of the [place] catheter. Mediastinal drains and epicardial pacing leads remain. Left thoracostomy tube also remains in place although has been slightly retracted in the interim. There is no residual pneumothorax appreciated. T here are overall low lung volumes. Retrocardiac airspace disease remains with again suspected hiatal hernia. IMPRESSION: Interval removal of the [place] catheter with stable mediastinal drains and slight ret raction of the left thoracostomy tube. No pneumothorax. Residual retrocardiac airspace disease is sta ble.
[2018-08-09] MEDS: ASPIRIN 325 MG TAB PO SCH (08:47)
[2018-08-09] MEDS: METOPROLOL TARTRATE 25 MG TAB PO SCH ×2 (08:47→20:22)
[2018-08-09] MEDS: EZETIMIBE 10 MG TAB PO SCH (08:48)
[2018-08-09] MEDS ORDERED: amLODIPine 5 MG TAB PO SCH (09:00)
--- NOTE | 2018-08-09 09:26 | P.PN ---
Subjective Progress Note Date: 08/09/18 This is a 78-year-old gentleman who is status post aortic and bypass surgery. Patient is doing very well. He is sitting up in the chair and doesn't appear to be in acute distress. No arrhythmias detected. His blood pressures also fairly controlled. Overall patient seemed to be making good progress. Objective - Vital Signs Vital signs: Vital Signs Temp 98.2 F 08/09/18 08:00 Pulse 78 08/09/18 09:00 Resp 26 H 08/09/18 09:00 BP 122/70 08/09/18 09:00 Pulse Ox 91 L 08/09/18 09:00 Intake & Output 08/08/18 08/09/18 08/09/18 18:59 06:59 18:59 Intake Total 776.786 505 336 Output Total 540 905 215 Balance 236.786 -400 121 Weight 82.2 kg Intake: IV 532 235 36 Lactated Ringers 1,000 ml 460 190 30 @ 20 mls/hr IV .Q24H [facility] Rx#:[id number] Pressure Bag 72 45 6 Intake, IV Titration 44.786 Amount Clevidipine Butyrate 25 38.667 mg In Empty Bag 1 bag @ 1 MG/HR 2 mls/hr IV .Q24H [facility] Rx#:[id number] Insulin Regular 100 unit 6.119 In Sodium Chloride 0.9% 100 ml @ Per Protocol IV .Q0M [facility] Rx#:[id number] Oral 200 270 300 Output: Chest Tube Drainage 180 130 70 Left Pleural 120 60 60 Mediastinal x2 60 70 10 Urine 360 775 145 Other: Voiding Method Indwelling Catheter Indwelling Catheter Toilet Urinal ABP, PAP, CO, CI - Last Documented Arterial Blood Pressure 105/46 Pulmonary Artery Pressure 25/17 Cardiac Output 4.2 Cardiac Index 2.3 - Exam GENERAL EXAM: Patient is alert and oriented and doesn't appear to be in any acute distress HEENT: Normocephalic. Normal reaction of pupils, equal size, normal range of extraocular motion. No erythema or exudates in the throat. NECK: No masses, no nuchal rigidity. CHEST: Postsurgical LUNGS: Equal air entry with no crackles or wheeze. HEART: S1 and S2 normal with no audible mumurs or gallops. Regular rhythm, femorals equal on both sides.. ABDOMEN: No hepatosplenomegaly, normal bowel sounds, no guarding or rigidity. SKIN: No rashes CENTRAL NERVOUS SYSTEM: No focal deficits. EXTREMITIES: No cyanosis, clubbing or edema. - Labs CBC & Chem 7: 08/09/18 04:40 08/09/18 04:40 Labs: Abnormal Lab Results - Last 24 Hours (Table) 08/08/18 08/08/18 08/08/18 Range/Units 10:20 11:02 12:06 WBC (3.8-10.6) k/uL RBC (4.30-5.90) m/uL Hgb (13.0-17.5) gm/dL Hct (39.0-53.0) % Neutrophils # (1.3-7.7) k/uL Sodium (137-145) mmol/L Glucose (74-99) mg/dL POC Glucose (mg/dL) 137 H 137 H 126 H (75-99) mg/dL Calcium (8.4-10.2) mg/dL ALT (21-72) U/L Alkaline Phosphatase (38-126) U/L Total Protein (6.3-8.2) g/dL Albumin (3.5-5.0) g/dL 08/08/18 08/08/18 08/08/18 Range/Units 13:12 15:14 17:04 WBC (3.8-10.6) k/uL RBC (4.30-5.90) m/uL Hgb (13.0-17.5) gm/dL Hct (39.0-53.0) % Neutrophils # (1.3-7.7) k/uL Sodium (137-145) mmol/L Glucose (74-99) mg/dL POC Glucose (mg/dL) 124 H 115 H 143 H (75-99) mg/dL Calcium (8.4-10.2) mg/dL ALT (21-72) U/L Alkaline Phosphatase (38-126) U/L Total Protein (6.3-8.2) g/dL Albumin (3.5-5.0) g/dL 08/08/18 08/09/18 08/09/18 Range/Units 20:45 04:40 04:40 WBC 11.3 H (3.8-10.6) k/uL RBC 2.95 L (4.30-5.90) m/uL Hgb 9.3 L (13.0-17.5) gm/dL Hct 27.1 L (39.0-53.0) % Neutrophils # 8.9 H (1.3-7.7) k/uL Sodium 131 L (137-145) mmol/L Glucose 121 H (74-99) mg/dL POC Glucose (mg/dL) 127 H (75-99) mg/dL Calcium 8.2 L (8.4-10.2) mg/dL ALT 18 L (21-72) U/L Alkaline Phosphatase 37 L (38-126) U/L Total Protein 4.9 L (6.3-8.2) g/dL Albumin 3.0 L (3.5-5.0) g/dL 08/09/18 Range/Units 07:12 WBC (3.8-10.6) k/uL RBC (4.30-5.90) m/uL Hgb (13.0-17.5) gm/dL Hct (39.0-53.0) % Neutrophils # (1.3-7.7) k/uL Sodium (137-145) mmol/L Glucose (74-99) mg/dL POC Glucose (mg/dL) 138 H (75-99) mg/dL Calcium (8.4-10.2) mg/dL ALT (21-72) U/L Alkaline Phosphatase (38-126) U/L Total Protein (6.3-8.2) g/dL Albumin (3.5-5.0) g/dL Assessment and Plan (1) S/P CABG (coronary artery bypass graft) Current Visit: Yes Status: Acute Code(s): Z95.1 - PRESENCE OF AORTOCORONARY BYPASS GRAFT SNOMED Code(s): 980355180 (2) CAD (coronary artery disease) Current Visit: Yes Status: Acute Code(s): I25.10 - ATHSCL HEART DISEASE OF [place] CORONARY ARTERY W/O ANG PCTRS SNOMED Code(s): 83670729 (3) History of hypertension Current Visit: Yes Status: Acute Code(s): Z86.79 - PERSONAL HISTORY OF OTHER DISEASES OF THE CIRCULATORY SYSTEM SNOMED Code(s): 165511332 Plan: Patient is clinically doing well. No arrhythmias. Increase activity as tolerated. Incentive spirometry. We'll follow
[2018-08-09 12:25] LABS: Glucose,Whole Blood 143 mg/dL (75-99)
--- NOTE | 2018-08-09 14:42 | P.PN ---
Subjective Progress Note Date: 08/09/18 On 08/09/2018 the patient is postop day #2. The patient is doing extremely well. The mediastinal and the pleural chest tubes are all in place. The chest x-ray from today shows adequate expansion of both lungs without evidence of any pneumothorax. He is using incentive spirometer. Cardiac rhythm is sinus. No hypotension. He was on a combination of nitroglycerin and Reprexain both of them has been discontinued and the patient is maintaining his own blood pressure. He is post four-vessel bypass surgery including a BLACKWELL to LAD. His hemoglobin is stable. His hemoglobin is at 9.3. Renal function is also stable with a creatinine of 0.83. Otherwise, the patient is on oxygen 4 L per minute nasal cannula. No significant events overnight. Is awake alert and communicating and his pain is under good control for now. Objective - Vital Signs Vital signs: Vital Signs Temp 98.0 F 08/09/18 12:00 Pulse 82 08/09/18 14:00 Resp 27 H 08/09/18 14:00 BP 111/74 08/09/18 14:00 Pulse Ox 95 08/09/18 13:00 Intake & Output 08/08/18 08/09/18 08/09/18 18:59 06:59 18:59 Intake Total 776.786 505 706 Output Total 540 905 216 Balance 236.786 -400 490 Weight 82.2 kg Intake: IV 532 235 46 Lactated Ringers 1,000 ml 460 190 40 @ 20 mls/hr IV .Q24H [facility] Rx#:[id number] Pressure Bag 72 45 6 Intake, IV Titration 44.786 Amount Clevidipine Butyrate 25 38.667 mg In Empty Bag 1 bag @ 1 MG/HR 2 mls/hr IV .Q24H [facility] Rx#:[id number] Insulin Regular 100 unit 6.119 In Sodium Chloride 0.9% 100 ml @ Per Protocol IV .Q0M [facility] Rx#:[id number] Oral 200 270 660 Output: Chest Tube Drainage 180 130 70 Left Pleural 120 60 60 Mediastinal x2 60 70 10 Urine 360 775 145 Stool 1 Other: Voiding Method Indwelling Catheter Indwelling Catheter Toilet Urinal # Voids 1 ABP, PAP, CO, CI - Last Documented Arterial Blood Pressure 105/46 Pulmonary Artery Pressure 25/17 Cardiac Output 4.2 Cardiac Index 2.3 - Exam - Constitutional General appearance: Present: cooperative, no acute distress - Respiratory Details: Lungs sounds diminished bilaterally. Respirations even, nonlabored. Currently on 4 L nasal cannula with oxygen saturation 91%. Only able to achieve 500 mL on his incentive spirometry. Stronger cough than yesterday. Mediastinal chest tube to continuous wall suction, 40 mL serosanguineous drainage overnight, 150 mL in the last 24 hours. Left pleural chest tube to continuous wall suction, 20 mL serosanguineous overnight, 250 mL in the last 24 hours. No air leaks present. - Cardiovascular Details: S1, S2 present. Regular rate and rhythm, sinus rhythm with occasional PVCs on telemetry. Sternum stable. A/V epicardial pacemaker wires present, grounded. Palpable peripheral pulses bilaterally. No edema present. No calf pain or tenderness. Right internal jugular Cordis, right radial arterial line present. Antiembolism stockings, SCDs present. Heart hugger in place with patient demonstrating appropriate use. - Gastrointestinal Gastrointestinal Comment(s): Abdomen soft, nontender, nondistended. Active bowel sounds present 4 quadrants. Tolerating full liquids. Positive flatus. - Genitourinary Genitourinary Comment(s): Hanson present draining clear, yellow urine. Output 30-45 mL/h initially overnight, increasing to 100-175 mL/h this morning. - Integumentary Integumentary Comment(s): Skin is warm and dry with evidence of good perfusion. Anterior chest incision well approximated and covered with dry intact dressing. Left lower extremity EVH site well approximated with Dermabond. - Neurologic Neurologic: Present: CNII-XII intact - Musculoskeletal Musculoskeletal: Present: gait normal, strength equal bilaterally - Psychiatric Psychiatric: Present: A&O x's 3, appropriate affect, intact judgment & insight - Labs CBC & Chem 7: 08/09/18 04:40 08/09/18 04:40 Labs: Abnormal Lab Results - Last 24 Hours (Table) 08/08/18 08/08/18 08/08/18 Range/Units 15:14 17:04 20:45 WBC (3.8-10.6) k/uL RBC (4.30-5.90) m/uL Hgb (13.0-17.5) gm/dL Hct (39.0-53.0) % Neutrophils # (1.3-7.7) k/uL Sodium (137-145) mmol/L Glucose (74-99) mg/dL POC Glucose (mg/dL) 115 H 143 H 127 H (75-99) mg/dL Calcium (8.4-10.2) mg/dL ALT (21-72) U/L Alkaline Phosphatase (38-126) U/L Total Protein (6.3-8.2) g/dL Albumin (3.5-5.0) g/dL 08/09/18 08/09/18 08/09/18 Range/Units 04:40 04:40 07:12 WBC 11.3 H (3.8-10.6) k/uL RBC 2.95 L (4.30-5.90) m/uL Hgb 9.3 L (13.0-17.5) gm/dL Hct 27.1 L (39.0-53.0) % Neutrophils # 8.9 H (1.3-7.7) k/uL Sodium 131 L (137-145) mmol/L Glucose 121 H (74-99) mg/dL POC Glucose (mg/dL) 138 H (75-99) mg/dL Calcium 8.2 L (8.4-10.2) mg/dL ALT 18 L (21-72) U/L Alkaline Phosphatase 37 L (38-126) U/L Total Protein 4.9 L (6.3-8.2) g/dL Albumin 3.0 L (3.5-5.0) g/dL 08/09/18 Range/Units 12:13 WBC (3.8-10.6) k/uL RBC (4.30-5.90) m/uL Hgb (13.0-17.5) gm/dL Hct (39.0-53.0) % Neutrophils # (1.3-7.7) k/uL Sodium (137-145) mmol/L Glucose (74-99) mg/dL POC Glucose (mg/dL) 143 H (75-99) mg/dL Calcium (8.4-10.2) mg/dL ALT (21-72) U/L Alkaline Phosphatase (38-126) U/L Total Protein (6.3-8.2) g/dL Albumin (3.5-5.0) g/dL Assessment and Plan Plan: 1 symptomatic multivessel coronary artery disease. The patient is post cardiac bypass surgery and the patient is postop day #2. The patient did extremely well and the patient was weaned off the mechanical ventilator the patient was extubated without any major difficulties. The patient is currently on 40s about 2 by nasal cannula. She will be removed today including the mediastinal and pleural chest tube. He is using incentive spirometer. Hemodynamically is stable. 2 post thoracotomy, and a chest x-ray from today shows postsurgical changes without any acute abnormalities. 3 obstructive sleep apnea maintained on CPAP therapy on outpatient basis 4 hypertension, history of recurrent event Cleviprex for blood pressure control. 5 hyperlipidemia 6 prostate cancer previous radiation therapy to his prostate 7 moderate aortic stenosis without any significant gradient on his recent MELANIE Plan Continue using incentive spirometer. Advanced activity and diet as tolerated. Continue aspirin. Remove all of the chest tubes. Remove the Hanson catheter. Remove the a line. Continue beta blockers. Wean off FiO2 as tolerated to maintain a saturation above 90%. The patient can be transferred out of the ICU this evening.
--- NOTE | 2018-08-09 14:43 | P.PN ---
Subjective Progress Note Date: 08/09/18 this is a pleasant 78-year-old gentleman well known to my practice, underlying history of CAD, prior cardiac stents, CHF, prostate cancer 2010, obstructive sleep apnea, admitted to ICU secondary to CABG procedure. He underwent a left cardiac cath 08/01/2018, after he a positive stress test suggestive off inferolateral reversible defect and fixed defect hypokinesia. He has previous interventions involving the LAD distal RCA PLB branch of RCA between 2001 and 2006.last cardiac cath showed 80% stenoses of the stented segment RCA, mid LAD stented with 50% in-stent stenosis, distal aspect of the stent was a 90% stenosis obtuse marginal branch 70% stenosis another mid lesion of 70-80% stenosis left main 25-30% and has a distal 25% lesion,. Patient underwentfour- vessel CABG on 08/07/2018by Dr. Avitia, requiring BLACKWELL to the LAD, saphenous vein graft to obtuse marginal artery, saphenous vein graft to posterior descending artery saphenous vein graft to posterolateral branch of the right coronary art torito. Patient currently is in ICU with mechanical ventilation receiving Levophed dripand nitro drip amiodarone dripd weaning parameters for sedation. 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 He is currently pulse oxing 93% on 7 L high flow nasal cannula. He has been afebrile, heart rate in 80s. Blood pressure 129/59. Repeat hemoglobin 10.6, white count 11.5. Blood sugars running between 116- 144. personnel monitor is a sinus rhythm. Patient has been weaned off Cleviprex and IV nitro for radial artery spasm prophylaxis. The patient is currently on insulin drip which we will transition over to an NovoLog scheduled with meals and to hold if blood sugars less than 110. Patient does not diagnosis of diabetes. His hemoglobin A1c was 5.7 preoperatively. 08/09: Patient remains in intensive care unit but is doing very well. He has been ambulating. He may be transferred out of the intensive care unit today. He has not had a bowel movement since Tuesday but he feels that it will be soon. Chest tubes and Hanson are out. Discharge plan is possibly inpatient rehab. Patient has been afebrile, heart rate 82, blood pressure 111/74, pulse ox 94% on 3 L nasal cannula. Blood sugars are running between 121 and 143 while on scheduled NovoLog only which will be continued for now. WBC 11.3, hemoglobin 9.3. Creatinine 0.83. Objective - Vital Signs Vital signs: Vital Signs Temp 98.0 F 08/09/18 12:00 Pulse 78 08/09/18 12:00 Resp 21 08/09/18 12:00 BP 135/73 08/09/18 12:00 Pulse Ox 94 L 08/09/18 12:00 Intake & Output 08/08/18 08/09/18 08/09/18 18:59 06:59 18:59 Intake Total 776.786 505 706 Output Total 540 905 216 Balance 236.786 -400 490 Weight 82.2 kg Intake: IV 532 235 46 Lactated Ringers 1,000 ml 460 190 40 @ 20 mls/hr IV .Q24H [facility] Rx#:[id number] Pressure Bag 72 45 6 Intake, IV Titration 44.786 Amount Clevidipine Butyrate 25 38.667 mg In Empty Bag 1 bag @ 1 MG/HR 2 mls/hr IV .Q24H [facility] Rx#:[id number] Insulin Regular 100 unit 6.119 In Sodium Chloride 0.9% 100 ml @ Per Protocol IV .Q0M [facility] Rx#:[id number] Oral 200 270 660 Output: Chest Tube Drainage 180 130 70 Left Pleural 120 60 60 Mediastinal x2 60 70 10 Urine 360 775 145 Stool 1 Other: Voiding Method Indwelling Catheter Indwelling Catheter Toilet Urinal # Voids 1 ABP, PAP, CO, CI - Last Documented Arterial Blood Pressure 105/46 Pulmonary Artery Pressure 25/17 Cardiac Output 4.2 Cardiac Index 2.3 - Exam Review Of Systems: Constitutional: No fever, no chills, no night sweats. No weight change. No weakness, reports fatigue. EENT: No headache. No blurred vision or double vision, no loss of vision. No loss of Hearing, no ringing in the ears, no dizziness. No nasal drainage or congestion. No epistaxis. No sore throat. Lungs: No shortness of breath, cough, no sputum production. No wheezing. Cardiovascular: No chest pain, reports chest discomfort, no lower extremity edema. No palpitations. No paroxysmal nocturnal dyspnea. No orthopnea. No lightheadedness or dizziness. Abdominal: No abdominal pain. No nausea, vomiting. No diarrhea. No constipation. No bloody or tarry stools.. No loss of appetite. Genitourinary: No urinary retention. Musculoskeletal: No myalgias. No muscle weakness, no gait dysfunction, no frequent falls. No back pain. No neck pain. Integumentary: No wounds, no lesions. No rash or pruritus. No unusual bruising. No change in hair or nails. Neurologic: No aphasia. No facial droop. No change in mentation. No head injury. No headache. No paralysis. No paresthesia. Psychiatric: No depression. No anxiety. No mood swings. Endocrine: No abnormal blood sugars. No weight change. No excessive sweating or thirst. No cold intolerance. Gen: This is an 78-year-old male. He is resting a recliner appears to be comfortable and in no acute distress. Family members are at the bedside. HEENT: Head is atraumatic, normocephalic. Pupils equal, round. Sclerae is anicteric. NECK: Supple. No JVD. No lymphadenopathy. No thyromegaly. LUNGS: Diminished bilaterally Clear to auscultation. No wheezes or rhonchi. No intercostal retractions. HEART: Regular rate and rhythm. No murmur. ABDOMEN: Soft. Bowel sounds are present. No masses. No tenderness. EXTREMITIES: No pedal edema. No calf tenderness. SCDs and ASAD hose. NEUROLOGICAL: Patient is awake, alert and oriented x3. Cranial nerves 2 through 12 are grossly intact. - Labs CBC & Chem 7: 08/09/18 04:40 08/09/18 04:40 Labs: Abnormal Lab Results - Last 24 Hours (Table) 08/08/18 08/08/18 08/08/18 Range/Units 13:12 15:14 17:04 WBC (3.8-10.6) k/uL RBC (4.30-5.90) m/uL Hgb (13.0-17.5) gm/dL Hct (39.0-53.0) % Neutrophils # (1.3-7.7) k/uL Sodium (137-145) mmol/L Glucose (74-99) mg/dL POC Glucose (mg/dL) 124 H 115 H 143 H (75-99) mg/dL Calcium (8.4-10.2) mg/dL ALT (21-72) U/L Alkaline Phosphatase (38-126) U/L Total Protein (6.3-8.2) g/dL Albumin (3.5-5.0) g/dL 08/08/18 08/09/18 08/09/18 Range/Units 20:45 04:40 04:40 WBC 11.3 H (3.8-10.6) k/uL RBC 2.95 L (4.30-5.90) m/uL Hgb 9.3 L (13.0-17.5) gm/dL Hct 27.1 L (39.0-53.0) % Neutrophils # 8.9 H (1.3-7.7) k/uL Sodium 131 L (137-145) mmol/L Glucose 121 H (74-99) mg/dL POC Glucose (mg/dL) 127 H (75-99) mg/dL Calcium 8.2 L (8.4-10.2) mg/dL ALT 18 L (21-72) U/L Alkaline Phosphatase 37 L (38-126) U/L Total Protein 4.9 L (6.3-8.2) g/dL Albumin 3.0 L (3.5-5.0) g/dL 08/09/18 08/09/18 Range/Units 07:12 12:13 WBC (3.8-10.6) k/uL RBC (4.30-5.90) m/uL Hgb (13.0-17.5) gm/dL Hct (39.0-53.0) % Neutrophils # (1.3-7.7) k/uL Sodium (137-145) mmol/L Glucose (74-99) mg/dL POC Glucose (mg/dL) 138 H 143 H (75-99) mg/dL Calcium (8.4-10.2) mg/dL ALT (21-72) U/L Alkaline Phosphatase (38-126) U/L Total Protein (6.3-8.2) g/dL Albumin (3.5-5.0) g/dL Assessment and Plan Plan: 1. CAD with 4 vessel quadruple bypass on 08/07/2018 BLACKWELL to the LAD, saphenous v ein graft to obtuse marginal artery, saphenous vein graft to posterior descending artery, saphenous vein graft to posterolateral branch of RCA. Patient successfully extubated and managed by Dr. Carlin. Continue current plan of care per cardiothoracic team. Continue aspirin, Zetia, Lopressor. N orvasc was started for radial artery spasm prophylaxis. Nitroglycerin drip off. I Cleviprex. Continue incentive spirometry. Continue NovoLog scheduled 3 units with meals and hold for blood sugar less than 110. 2. CAD with prior history with 7 cardiac stents between 1746-1008 3. History of diastolic CHF, with EF 50-55% July 2018, normal right medical systolic pressure, has mild MR and mild TR, moderate aortic stenosis 4. Moderate aortic stenosis with peak gradient across the valve of 38 mmhg/20 mmHg. surveilance thru echo as OP 5. History of prostate cancer, with prior radiation treatment, no active treatments ongoing 6. History of obstructive sleep apnea, on CPAP device at home 7. hypertension. 8. gi prophylaxis- protonix /stool softeners 9. dvt prophylaxis heparin SQ Discharge plan: To be determined. Possibly inpatient rehab. Impression and plan of care have been directed as dictated by the signing physician. Monique Linder nurse practitioner acting as scribe for signing physician.
[2018-08-09 17:25] LABS: Glucose,Whole Blood 126 mg/dL (75-99)
[2018-08-09] MEDS: MELATONIN 5 MG TABLET PO SCH (20:22)
[2018-08-09] MEDS: SENNOSIDES-DOCUSATE SODIUM 1 EACH TAB PO SCH (20:22)
[2018-08-09 20:31] LABS: Glucose,Whole Blood 132 mg/dL (75-99)
[2018-08-10] MEDS: KETOROLAC 30 MG/ML 1 ML VIAL IVP SCH (05:09)
[2018-08-10] MEDS: INSULIN ASPART (NovoLOG) 100 UNIT/ML VIAL SQ SCH ×7 (06:52→20:52)
[2018-08-10] MEDS: PANTOPRAZOLE 40 MG TABLET PO SCH (06:52)
[2018-08-10 07:02] LABS: Glucose,Whole Blood 128 mg/dL (75-99)
--- NOTE | 2018-08-10 07:18 | XR ---
EXAMINATION TYPE: XR chest 2V DATE OF EXAM: 08/10/2018 COMPARISON: 08/09/2018 TECHNIQUE: PA and lateral views submitted. HISTORY: Postop FINDINGS: Postsurgical changes are seen and there is cardiomegaly. Suspect a hiatal hernia. Bilateral infiltrat e and pleural effusion. No pneumothorax. Diffuse osteopenia and arthropathy shoulders. Mediastinal dr aguilar is no longer identified. Epicardial lead noted. Hypertrophic and degenerative change of the spine . Densities overlying the upper abdomen nonspecific may be superficial to the patient should be corre lated clinically. IMPRESSION: 1. Postoperative change with bilateral infiltrate and small effusion.
[2018-08-10 07:42] LABS: HCT 28.4 % (39.0-53.0); HGB 9.5 gm/dL (13.0-17.5); MCH 31.6 pg (25.0-35.0); MCHC 33.4 g/dL (31.0-37.0); MCV 94.7 fL (80.0-100.0); Mean Platelet Volume 8.1; Platelet Count 178 k/uL (150-450); WBC 10.9 k/uL (3.8-10.6)
[2018-08-10] MEDS: IPRATROPIUM-ALBUTEROL 3 ML NEB INHALATION SCH ×4 (07:52→19:11)
[2018-08-10 08:04] LABS: African American GFR (CKD) >90 (>60 ml/min/1.73 sqM); Anion Gap 6 mmol/L; Blood Urea Nitrogen 21 mg/dL (9-20); Calcium 8.5 mg/dL (8.4-10.2); Carbon Dioxide 28 mmol/L (22-30); Chloride 103 mmol/L (98-107); Glucose 124 mg/dL (74-99); Sodium 137 mmol/L (137-145)
[2018-08-10] MEDS: ASPIRIN 325 MG TAB PO SCH (08:12)
[2018-08-10] MEDS: METOPROLOL TARTRATE 50 MG TAB PO SCH ×2 (08:13→20:57)
[2018-08-10] MEDS: HEPARIN SODIUM,PORCINE 5,000 UNIT/ML 1 ML VIAL SQ SCH ×2 (08:13→17:19)
[2018-08-10] MEDS: EZETIMIBE 10 MG TAB PO SCH (08:13)
[2018-08-10] MEDS ORDERED: KETOROLAC 30 MG/ML 1 ML VIAL IVP PRN (08:14)
--- NOTE | 2018-08-10 08:22 | P.PN ---
Subjective Progress Note Date: 08/10/18 Principal diagnosis: Severe triple vessel coronary artery disease. Previous medical history of coronary artery disease with myocardial infarction in the past status post multiple coronary stenting, moderate aortic stenosis on transthoracic echocardiogram but no gradient across the aortic valve on heart catheterization, hypertension, hyperlipidemia, prostate cancer status post radiation approximately 7-8 years ago, obstructive sleep apnea with home CPAP use, no tobacco dependence but long history of secondhand smoke exposure, and multiple male family members DC stiffer myocardial infarction before 70 years of age. POD#3 coronary bypass grafting 4 vessels, left internal mammary artery to the left anterior descending artery, reverse saphenous vein graft to the obtuse ma rginal artery, reverse saphenous vein graft to the posterior descending artery, reverse saphenous vein graft to the posterior lateral branch of the right coronary artery. Endoscopic harvesting of the left greater saphenous vein. Epi-aortic ultrasound. Intraoperative transesophageal echocardiogram. Postoperative acute blood loss anemia, expected outcome given hemodilution and cardiopulmonary bypass pump. The patient is currently sitting up in a recliner in the intensive care unit in no acute distress. States pain is well controlled on current medication regimen, denies shortness of breath. Remains in normal sinus rhythm. Hemodynamically stable. Chest tubes, Cordis, arterial line, Hanson catheter were discontinued yesterday. Patient ambulated in the hallway with physical therapy, he has already showered this morning. Transfer orders were placed for 3 S. cardiac stepdown unit, there is no bed availability. No new complaints. Objective - Vital Signs Vital signs: Vital Signs Temp 97.9 F 08/10/18 04:00 Pulse 86 08/10/18 08:08 Resp 12 08/10/18 04:00 BP 127/94 08/10/18 05:00 Pulse Ox 97 08/10/18 04:00 Intake & Output 08/09/18 08/10/18 08/10/18 18:59 06:59 18:59 Intake Total 706 300 Output Total 216 Balance 490 300 Intake: IV 46 Lactated Ringers 1,000 ml 40 @ 20 mls/hr IV .Q24H [facility] Rx#:[id number] Pressure Bag 6 Oral 660 300 Output: Chest Tube Drainage 70 Left Pleural 60 Mediastinal x2 10 Urine 145 Stool 1 Other: Voiding Method Toilet Toilet Urinal Urinal # Voids 1 5 ABP, PAP, CO, CI - Last Documented Arterial Blood Pressure 105/46 Pulmonary Artery Pressure 25/17 Cardiac Output 4.2 Cardiac Index 2.3 - Constitutional General appearance: Present: cooperative, no acute distress - Respiratory Details: Lungs sounds diminished bilaterally. Respirations even, nonlabored. Currently on 2 L nasal cannula with oxygen saturation 97%. Able to achieve 1000 mL on his incentive spirometry. Stronger cough. - Cardiovascular Details: S1, S2 present. Regular rate and rhythm, sinus rhythm with occasional PVCs on telemetry. Sternum stable. A/V epicardial pacemaker wires present, grounded. Palpable peripheral pulses bilaterally. No edema present. No calf pain or tenderness. Antiembolism stockings, SCDs present. Heart hugger in place with patient demonstrating appropriate use. - Gastrointestinal Gastrointestinal Comment(s): Abdomen soft, nontender, nondistended. Active bowel sounds present 4 quadrants. Tolerating diet. Positive flatus, negative bowel movement. - Genitourinary Genitourinary Comment(s): Hanson discontinued yesterday. Patient continues to void clear, yellow urine. - Integumentary Integumentary Comment(s): Skin is warm and dry with evidence of good perfusion. Anterior chest incision well approximated and covered with dry intact dressing. Left lower extremity EVH site well approximated with Dermabond. - Neurologic Neurologic: Present: CNII-XII intact - Musculoskeletal Musculoskeletal: Present: gait normal, strength equal bilaterally - Psychiatric Psychiatric: Present: A&O x's 3, appropriate affect, intact judgment & insight - Allied health notes Allied health notes reviewed: nursing - Labs CBC & Chem 7: 08/10/18 07:26 08/10/18 07:26 Labs: Abnormal Lab Results - Last 24 Hours (Table) 08/09/18 08/09/18 08/09/18 Range/Units 12:13 17:09 20:19 WBC (3.8-10.6) k/uL RBC (4.30-5.90) m/uL Hgb (13.0-17.5) gm/dL Hct (39.0-53.0) % BUN (9-20) mg/dL Glucose (74-99) mg/dL POC Glucose (mg/dL) 143 H 126 H 132 H (75-99) mg/dL 08/10/18 08/10/18 08/10/18 Range/Units 06:50 07:26 07:26 WBC 10.9 H (3.8-10.6) k/uL RBC 3.00 L (4.30-5.90) m/uL Hgb 9.5 L (13.0-17.5) gm/dL Hct 28.4 L (39.0-53.0) % BUN 21 H (9-20) mg/dL Glucose 124 H (74-99) mg/dL POC Glucose (mg/dL) 128 H (75-99) mg/dL - Imaging and Cardiology Chest x-ray: report reviewed, image reviewed Assessment and Plan Assessment: 1. Severe triple-vessel coronary artery disease, status post four-vessel CABG 2. History of coronary artery disease, myocardial infarction status post multiple coronary stenting 3. Moderate aortic stenosis per TTE without gradient across the aortic valve on heart catheterization 4. Hypertension 5. Hyperlipidemia 6. Prostate cancer status post radiation approximately 7-8 years ago 7. Obstructive sleep apnea with home CPAP use 8. Never smoker, long history of secondhand smoke exposure 9. Family history of significant coronary artery disease with from myocardial infarction 10. Postoperative acute blood loss anemia, expected Plan: 1. Continue aspirin, Zetia, beta marylou therapy. Will increase beta marylou as tolerated. No Plavix or statins as patient as intolerant. 2. Continue Norvasc for radial artery spasm prophylaxis. 3. Wean O2 as tolerated. Encourage incentive spirometry use 10 times every hour while awake. 4. Increase activity, ambulate as tolerated. PT/OT/cardiac rehab following. 5. Will monitor daily labs and x-rays. Electrolyte replacement per protocol. No blood transfusions. 6. Pain control with current medication regimen. 7. Insulin management per primary care service 8. GI/DVT prophylaxis 9. Bronchodilators, CPAP per pulmonology. 10. Transfer orders placed yesterday for 3 S. cardiac stepdown unit. May transfer when bed available. 11. Discharge planning in progress. Home-care ordered. Anticipate discharge to home with home care this weekend. 12. More recommendations to follow based on patient's clinical course. Time with Patient: Greater than 30
[2018-08-10] MEDS: amLODIPine 5 MG TAB PO SCH (12:03)
[2018-08-10 12:16] LABS: Glucose,Whole Blood 104 mg/dL (75-99)
--- NOTE | 2018-08-10 13:57 | P.PN ---
Subjective Progress Note Date: 08/10/18 On 08/10/2018, the patient is being seen postop day #3. Doing well. All of the chest as of the removed. He is using incentive spirometer. No nausea. No vomiting. No abdominal pain. No chest pain. No cardiac arrhythmias. He is status post four-vessel bypass surgery. His hemoglobin stable at 9.3. Chest x- ray from today shows a small postoperative change with bilateral infiltrate and small effusion. No other significant abnormalities have been noted. Objective - Vital Signs Vital signs: Vital Signs Temp 97.9 F 08/10/18 04:00 Pulse 80 08/10/18 12:19 Resp 23 08/10/18 10:00 BP 95/59 08/10/18 12:00 Pulse Ox 97 08/10/18 04:00 Intake & Output 08/09/18 08/10/18 08/10/18 18:59 06:59 18:59 Intake Total 706 300 400 Output Total 216 Balance 490 300 400 Intake: IV 46 Lactated Ringers 1,000 ml 40 @ 20 mls/hr IV .Q24H [facility] Rx#:[id number] Pressure Bag 6 Oral 660 300 400 Output: Chest Tube Drainage 70 Left Pleural 60 Mediastinal x2 10 Urine 145 Stool 1 Other: Voiding Method Toilet Toilet Toilet Urinal Urinal Urinal # Voids 1 5 2 ABP, PAP, CO, CI - Last Documented Arterial Blood Pressure 105/46 Pulmonary Artery Pressure 25/17 Cardiac Output 4.2 Cardiac Index 2.3 - Exam - - Constitutional General appearance: Present: cooperative, no acute distress - Respiratory Details: Lungs sounds diminished bilaterally. Respirations even, nonlabored. Currently on 4 L nasal cannula with oxygen saturation 91%. Only able to achieve 500 mL on his incentive spirometry. Stronger cough than yesterday. Mediastinal chest tube to continuous wall suction, 40 mL serosanguineous drainage overnight, 150 mL in the last 24 hours. Left pleural chest tube to continuous wall suction, 20 mL serosanguineous overnight, 250 mL in the last 24 hours. No air leaks present. - Cardiovascular Details: S1, S2 present. Regular rate and rhythm, sinus rhythm with occasional PVCs on telemetry. Sternum stable. A/V epicardial pacemaker wires present, grounded. Palpable peripheral pulses bilaterally. No edema present. No calf pain or tenderness. Right internal jugular Cordis, right radial arterial line present. Antiembolism stockings, SCDs present. Heart hugger in place with patient demonstrating appropriate use. - Gastrointestinal Gastrointestinal Comment(s): Abdomen soft, nontender, nondistended. Active bowel sounds present 4 quadrants. Tolerating full liquids. Positive flatus. - Genitourinary Genitourinary Comment(s): Hanson present draining clear, yellow urine. Output 30-45 mL/h initially overnight, increasing to 100-175 mL/h this morning. - Integumentary Integumentary Comment(s): Skin is warm and dry with evidence of good perfusion. Anterior chest incision well approximated and covered with dry intact dressing. Left lower extremity EVH site well approximated with Dermabond. - Neurologic Neurologic: Present: CNII-XII intact - Musculoskeletal Musculoskeletal: Present: gait normal, strength equal bilaterally - Psychiatric Psychiatric: Present: A&O x's 3, appropriate affect, intact judgment & insight - Labs CBC & Chem 7: 08/10/18 07:26 08/10/18 07:26 Labs: Abnormal Lab Results - Last 24 Hours (Table) 08/09/18 08/09/18 08/10/18 Range/Units 17:09 20:19 06:50 WBC (3.8-10.6) k/uL RBC (4.30-5.90) m/uL Hgb (13.0-17.5) gm/dL Hct (39.0-53.0) % BUN (9-20) mg/dL Glucose (74-99) mg/dL POC Glucose (mg/dL) 126 H 132 H 128 H (75-99) mg/dL 08/10/18 08/10/18 08/10/18 Range/Units 07:26 07:26 12:05 WBC 10.9 H (3.8-10.6) k/uL RBC 3.00 L (4.30-5.90) m/uL Hgb 9.5 L (13.0-17.5) gm/dL Hct 28.4 L (39.0-53.0) % BUN 21 H (9-20) mg/dL Glucose 124 H (74-99) mg/dL POC Glucose (mg/dL) 104 H (75-99) mg/dL Assessment and Plan Plan: 1 symptomatic multivessel coronary artery disease. The patient is post cardiac bypass surgery and the patient is postop day #3. Chest tubes to be removed today. Hemodynamically stable. 2 post thoracotomy, and a chest x-ray from today shows postsurgical changes without any acute abnormalities. 3 obstructive sleep apnea maintained on CPAP therapy on outpatient basis 4 hypertension, history of recurrent event Cleviprex for blood pressure control. 5 hyperlipidemia 6 prostate cancer previous radiation therapy to his prostate 7 moderate aortic stenosis without any significant gradient on his recent MELANIE Plan Encourage ambulation. Continue using incentive spirometer. Chest tubes have been removed. Adequate pain control. The patient is on a combination of aspirin and Plavix. The patient on metoprolol 50 mg by mouth twice a day. He is on Norvasc 5 mg by mouth daily. Advance activity. Advance diet. Transfer the patient to telemetry unit/cardiac unit
--- NOTE | 2018-08-10 15:14 | P.PN ---
Subjective Progress Note Date: 08/10/18 This is a 78-year-old gentleman who is status post aortic and bypass surgery. Patient is doing very well. He is sitting up in the chair and doesn't appear to be in acute distress. No arrhythmias detected. His blood pressures also fairly controlled. Overall patient seemed to be making good progress. 08/10/2018: This patient is status post bypass surgery. Clinically doing well. Chest tubes have been removed. Patient is maintaining sinus rhythm. No complaints of any chest pain or shortness of breath. Tolerating activity. Patient is also eating well. Probable patient could be transferred to telemetry unit. Continue current medical therapy Objective - Vital Signs Vital signs: Vital Signs Temp 97.9 F 08/10/18 04:00 Pulse 80 08/10/18 12:19 Resp 23 08/10/18 10:00 BP 95/59 08/10/18 12:00 Pulse Ox 97 08/10/18 04:00 Intake & Output 08/09/18 08/10/18 08/10/18 18:59 06:59 18:59 Intake Total 706 300 400 Output Total 216 Balance 490 300 400 Intake: IV 46 Lactated Ringers 1,000 ml 40 @ 20 mls/hr IV .Q24H [facility] Rx#:[id number] Pressure Bag 6 Oral 660 300 400 Output: Chest Tube Drainage 70 Left Pleural 60 Mediastinal x2 10 Urine 145 Stool 1 Other: Voiding Method Toilet Toilet Toilet Urinal Urinal Urinal # Voids 1 5 2 ABP, PAP, CO, CI - Last Documented Arterial Blood Pressure 105/46 Pulmonary Artery Pressure 25/17 Cardiac Output 4.2 Cardiac Index 2.3 - Exam GENERAL EXAM: Patient is alert and oriented and doesn't appear to be in any acute distress HEENT: Normocephalic. Normal reaction of pupils, equal size, normal range of extraocular motion. No erythema or exudates in the throat. NECK: No masses, no nuchal rigidity. CHEST: Postsurgical LUNGS: Equal air entry with no crackles or wheeze. HEART: S1 and S2 normal with no audible mumurs or gallops. Regular rhythm, femorals equal on both sides.. ABDOMEN: No hepatosplenomegaly, normal bowel sounds, no guarding or rigidity. SKIN: No rashes CENTRAL NERVOUS SYSTEM: No focal deficits. EXTREMITIES: No cyanosis, clubbing or edema. - Labs CBC & Chem 7: 08/10/18 07:26 08/10/18 07:26 Labs: Abnormal Lab Results - Last 24 Hours (Table) 08/09/18 08/09/18 08/10/18 Range/Units 17:09 20:19 06:50 WBC (3.8-10.6) k/uL RBC (4.30-5.90) m/uL Hgb (13.0-17.5) gm/dL Hct (39.0-53.0) % BUN (9-20) mg/dL Glucose (74-99) mg/dL POC Glucose (mg/dL) 126 H 132 H 128 H (75-99) mg/dL 08/10/18 08/10/18 08/10/18 Range/Units 07:26 07:26 12:05 WBC 10.9 H (3.8-10.6) k/uL RBC 3.00 L (4.30-5.90) m/uL Hgb 9.5 L (13.0-17.5) gm/dL Hct 28.4 L (39.0-53.0) % BUN 21 H (9-20) mg/dL Glucose 124 H (74-99) mg/dL POC Glucose (mg/dL) 104 H (75-99) mg/dL Assessment and Plan (1) S/P CABG (coronary artery bypass graft) Current Visit: Yes Status: Acute Code(s): Z95.1 - PRESENCE OF AORTOCORONARY BYPASS GRAFT SNOMED Code(s): 692866575 (2) CAD (coronary artery disease) Current Visit: Yes Status: Acute Code(s): I25.10 - ATHSCL HEART DISEASE OF [place] CORONARY ARTERY W/O ANG PCTRS SNOMED Code(s): 70276078 (3) History of hypertension Current Visit: Yes Status: Acute Code(s): Z86.79 - PERSONAL HISTORY OF OTHER DISEASES OF THE CIRCULATORY SYSTEM SNOMED Code(s): 882483476 Plan: Patient is critically progressing fairly well. Continue incentive spirometry. Increase activity. Patient can be transferred to stepdown unit.
--- NOTE | 2018-08-10 15:35 | P.PN ---
Subjective Progress Note Date: 08/10/18 this is a pleasant 78-year-old gentleman well known to my practice, underlying history of CAD, prior cardiac stents, CHF, prostate cancer 2010, obstructive sleep apnea, admitted to ICU secondary to CABG procedure. He underwent a left cardiac cath 08/01/2018, after he a positive stress test suggestive off inferolateral reversible defect and fixed defect hypokinesia. He has previous interventions involving the LAD distal RCA PLB branch of RCA between 2001 and 2006.last cardiac cath showed 80% stenoses of the stented segment RCA, mid LAD stented with 50% in-stent stenosis, distal aspect of the stent was a 90% stenosis obtuse marginal branch 70% stenosis another mid lesion of 70-80% stenosis left main 25-30% and has a distal 25% lesion,. Patient underwentfour- vessel CABG on 08/07/2018by Dr. Avitia, requiring BLACKWELL to the LAD, saphenous vein graft to obtuse marginal artery, saphenous vein graft to posterior descending artery saphenous vein graft to posterolateral branch of the right coronary art torito. Patient currently is in ICU with mechanical ventilation receiving Levophed dripand nitro drip amiodarone dripd weaning parameters for sedation. Attempt to extubate him later tonight, optical effects camera operator Dr. Carlin 08/08: Patient was extubated last evening. He is currently pulse oxing 93% on 7 L high flow nasal cannula. He has been afebrile, heart rate in 80s. Blood pressure 129/59. Repeat hemoglobin 10.6, white count 11.5. Blood sugars running between 116- 144. site monitor is a sinus rhythm. Patient has been weaned off Cleviprex and IV nitro for radial artery spasm prophylaxis. The patient is currently on insulin drip which we will transition over to an NovoLog scheduled with meals and to hold if blood sugars less than 110. Patient does not diagnosis of diabetes. His hemoglobin A1c was 5.7 preoperatively. 08/09: Patient remains in intensive care unit but is doing very well. He has been ambulating. He may be transferred out of the intensive care unit today. He has not had a bowel movement since Tuesday but he feels that it will be soon. Chest tubes and Hanson are out. Discharge plan is possibly inpatient rehab. Patient has been afebrile, heart rate 82, blood pressure 111/74, pulse ox 94% on 3 L nasal cannula. Blood sugars are running between 121 and 143 while on scheduled NovoLog only which will be continued for now. WBC 11.3, hemoglobin 9.3. Creatinine 0.83. 08/10: Patient remains in intensive care unit still waiting for bed on cardiac stepdown unit. Patient states he did not have a bowel movement yesterday but feels it as soon. Blood sugars are running between 104 and 128. Patient states that he is hoping for discharge by tomorrow to home. site monitor remains normal sinus rhythm. Patient has been hemodynamically stable. Patient has been able to ambulate well in the hallway. Objective - Vital Signs Vital signs: Vital Signs Temp 97.9 F 08/10/18 04:00 Pulse 86 08/10/18 08:08 Resp 12 08/10/18 04:00 BP 127/94 08/10/18 05:00 Pulse Ox 97 08/10/18 04:00 Intake & Output 08/09/18 08/10/18 08/10/18 18:59 06:59 18:59 Intake Total 706 300 Output Total 216 Balance 490 300 Intake: IV 46 Lactated Ringers 1,000 ml 40 @ 20 mls/hr IV .Q24H [facility] Rx#:[id number] Pressure Bag 6 Oral 660 300 Output: Chest Tube Drainage 70 Left Pleural 60 Mediastinal x2 10 Urine 145 Stool 1 Other: Voiding Method Toilet Toilet Urinal Urinal # Voids 1 5 ABP, PAP, CO, CI - Last Documented Arterial Blood Pressure 105/46 Pulmonary Artery Pressure 25/17 Cardiac Output 4.2 Cardiac Index 2.3 - Exam Review Of Systems: Constitutional: No fever, no chills, no night sweats. No weight change. No we akness, reports fatigue. EENT: No headache. No blurred vision or double vision, no loss of vision. No loss of Hearing, no ringing in the ears, no dizziness. No nasal drainage or congestion. No epistaxis. No sore throat. Lungs: No shortness of breath, cough, no sputum production. No wheezing. Cardiovascular: No chest pain, reports chest discomfort, no lower extremity edema. No palpitations. No paroxysmal nocturnal dyspnea. No orthopnea. No lightheadedness or dizziness. Abdominal: No abdominal pain. No nausea, vomiting. No diarrhea. No constipation. No bloody or tarry stools.. No loss of appetite. Genitourinary: No urinary retention. Musculoskeletal: No myalgias. No muscle weakness, no gait dysfunction, no frequent falls. No back pain. No neck pain. Integumentary: No wounds, no lesions. No rash or pruritus. No unusual bruising. No change in hair or nails. Neurologic: No aphasia. No facial droop. No change in mentation. No head injury. No headache. No paralysis. No paresthesia. Psychiatric: No depression. No anxiety. No mood swings. Endocrine: No abnormal blood sugars. No weight change. No excessive sweating or thirst. Gen: This is an 78-year-old male. He is resting in bed and appears to be comfortable and in no acute distress. HEENT: Head is atraumatic, normocephalic. Pupils equal, round. Sclerae is anicteric. NECK: Supple. No JVD. No lymphadenopathy. No thyromegaly. LUNGS: Diminished bilaterally Clear to auscultation. No wheezes or rhonchi. No intercostal retractions. HEART: Regular rate and rhythm. No murmur. ABDOMEN: Soft. Bowel sounds are present. No masses. No tenderness. EXTREMITIES: No pedal edema. No calf tenderness. SCDs and ASAD hose. NEUROLOGICAL: Patient is awake, alert and oriented x3. Cranial nerves 2 through 12 are grossly intact. - Labs CBC & Chem 7: 08/10/18 07:26 08/10/18 07:26 Labs: Abnormal Lab Results - Last 24 Hours (Table) 08/09/18 08/09/18 08/09/18 Range/Units 12:13 17:09 20:19 WBC (3.8-10.6) k/uL RBC (4.30-5.90) m/uL Hgb (13.0-17.5) gm/dL Hct (39.0-53.0) % BUN (9-20) mg/dL Glucose (74-99) mg/dL POC Glucose (mg/dL) 143 H 126 H 132 H (75-99) mg/dL 08/10/18 08/10/18 08/10/18 Range/Units 06:50 07:26 07:26 WBC 10.9 H (3.8-10.6) k/uL RBC 3.00 L (4.30-5.90) m/uL Hgb 9.5 L (13.0-17.5) gm/dL Hct 28.4 L (39.0-53.0) % BUN 21 H (9-20) mg/dL Glucose 124 H (74-99) mg/dL POC Glucose (mg/dL) 128 H (75-99) mg/dL Assessment and Plan Plan: 1. CAD with 4 vessel quadruple bypass on 08/07/2018 BLACKWELL to the LAD, saphenous vein graft to obtuse marginal artery, saphenous vein graft to posterior descending artery, saphenous vein graft to posterolateral branch of RCA. Pa pradeepnt successfully extubated and managed by Dr. Carlin. Continue current plan of care per cardiothoracic team. Continue aspirin, Zetia, Lopressor. Norvasc was started for radial artery spasm prophylaxis. Continue incentive spirometry. Continue NovoLog scheduled 3 units with meals and hold for blood sugar less than 110. 2. CAD with prior history with 7 cardiac stents between 4550-6961 3. History of diastolic CHF, with EF 50-55% July 2018, normal right medical systolic pressure, has mild MR and mild TR, moderate aortic stenosis 4. Moderate aortic stenosis with peak gradient across the valve of 38 mmhg/20 mmHg. surveilance thru echo as OP 5. History of prostate cancer, with prior radiation treatment, no active treatments ongoing 6. History of obstructive sleep apnea, on CPAP device at home 7. hypertension. 8. gi prophylaxis- protonix /stool softeners 9. dvt prophylaxis heparin SQ Discharge plan: Home with [facility] care the next 24-48 hours. Impression and plan of care have been directed as dictated by the signing physician. Monique Linder nurse practitioner acting as scribe for signing physician.
[2018-08-10 17:24] LABS: Glucose,Whole Blood 108 mg/dL (75-99)
[2018-08-10] MEDS ORDERED: MENTHOL (NICE) LOZENGE MUCOUS MEM PRN (20:45)
[2018-08-10] MEDS: MELATONIN 5 MG TABLET PO SCH (20:57)
[2018-08-10] MEDS: SENNOSIDES-DOCUSATE SODIUM 1 EACH TAB PO SCH (20:57)
[2018-08-10 21:01] LABS: Glucose,Whole Blood 114 mg/dL (75-99)
[2018-08-11] MEDS: HEPARIN SODIUM,PORCINE 5,000 UNIT/ML 1 ML VIAL SQ SCH ×2 (01:00→08:27)
[2018-08-11 04:44] LABS: HGB 9.5 gm/dL (13.0-17.5); MCH 31.4 pg (25.0-35.0); MCHC 32.6 g/dL (31.0-37.0); MCV 96.2 fL (80.0-100.0); Mean Platelet Volume 8.3; Platelet Count 222 k/uL (150-450); RBC 3.02 m/uL (4.30-5.90); RDW 13.1 % (11.5-15.5); WBC 10.4 k/uL (3.8-10.6)
[2018-08-11 04:55] LABS: African American GFR (CKD) >90 (>60 ml/min/1.73 sqM); Anion Gap 8 mmol/L; Blood Urea Nitrogen 18 mg/dL (9-20); Calcium 8.4 mg/dL (8.4-10.2); Carbon Dioxide 28 mmol/L (22-30); Chloride 102 mmol/L (98-107); Glucose 114 mg/dL (74-99); Potassium 3.8 mmol/L (3.5-5.1); Sodium 138 mmol/L (137-145)
--- NOTE | 2018-08-11 07:06 | XR ---
EXAMINATION TYPE: XR chest 2V DATE OF EXAM: 08/11/2018 COMPARISON: 08/10/2018 HISTORY: Status post cardiac surgery TECHNIQUE: Frontal and lateral views of the chest are obtained. FINDINGS: Postoperative changes of the chest are again noted involving enlarged cardiomediastinal si lhouette. Scattered areas of linear atelectasis are seen. Right hemidiaphragm elevation is seen. Ther e is diffuse osseous demineralization present as well as a trace right pleural effusion unchanged fro m the prior. Mild multilevel degenerative changes cervical spine and epicardial pacing leads are also unchanged. IMPRESSION: Persistent trace pleural effusion and multifocal linear atelectasis. Chronic right hemid iaphragm elevation.
[2018-08-11] MEDS: IPRATROPIUM-ALBUTEROL 3 ML NEB INHALATION SCH ×3 (07:54→17:10)
[2018-08-11 08:07] LABS: Glucose,Whole Blood 158 mg/dL (75-99)
[2018-08-11] MEDS: INSULIN ASPART (NovoLOG) 100 UNIT/ML VIAL SQ SCH ×4 (08:15→12:47)
[2018-08-11] MEDS: METOPROLOL TARTRATE 50 MG TAB PO SCH (08:27)
[2018-08-11] MEDS: PANTOPRAZOLE 40 MG TABLET PO SCH (08:27)
[2018-08-11] MEDS: ASPIRIN 325 MG TAB PO SCH (08:28)
[2018-08-11] MEDS: EZETIMIBE 10 MG TAB PO SCH (08:28)
[2018-08-11] MEDS ORDERED: POTASSIUM CHLORIDE ER 20 MEQ TAB.ER PO SCH (09:00)
[2018-08-11 12:05] LABS: Glucose,Whole Blood 117 mg/dL (75-99)
--- NOTE | 2018-08-11 12:38 | P.PN ---
Subjective Progress Note Date: 08/11/18 On 08/11/2018 the patient is on room air oxygen. All of the chest is a been removed. He has no significant respiratory distress. His emanating. No cough sputum production chest answer wheezing. Sternum stable clean and intact. Chest exit from today shows adequate expansion of both lungs. No pneumothorax. Cardiac rhythm is sinus. No fever. No chills. No sweats. No nausea. No vomiting. No diarrhea. No swelling lower extremities. Objective - Vital Signs Vital signs: Vital Signs Temp 99.3 F 08/11/18 08:00 Pulse 80 08/11/18 11:42 Resp 16 08/11/18 08:00 BP 126/76 08/11/18 08:00 Pulse Ox 94 L 08/11/18 08:00 Intake & Output 08/10/18 08/11/18 08/11/18 18:59 06:59 18:59 Intake Total 500 250 Output Total 0 1 Balance 500 -1 250 Weight 75.8 kg Intake: Oral 500 250 Output: Urine 0 Stool 1 Other: Voiding Method Toilet Toilet Urinal Urinal # Voids 2 1 1 # Bowel Movements 1 ABP, PAP, CO, CI - Last Documented Arterial Blood Pressure 105/46 Pulmonary Artery Pressure 25/17 Cardiac Output 4.2 Cardiac Index 2.3 - Exam - - Constitutional General appearance: Present: cooperative, no acute distress - Respiratory Details: Lungs sounds diminished bilaterally. And the patient is pulling more than 1500 on the incentive spirometer. No wheezes. No rhonchi. Sternum stable clean and intact. - Cardiovascular Details: S1, S2 present. Regular rate and rhythm, sinus rhythm with occasional PVCs on telemetry. Sternum stable. A/V epicardial pacemaker wires present, grounded. Palpable peripheral pulses bilaterally. No edema present. No calf pain or tenderness. Right internal jugular Cordis has been removed and the site is zo an. Antiembolism stockings, SCDs present. Heart hugger in place with patient demonstrating appropriate use. - Gastrointestinal Gastrointestinal Comment(s): Abdomen soft, nontender, nondistended. Active bowel sounds present 4 quadrants. Tolerating full liquids. Positive flatus. - Genitourinary Genitourinary Comment(s): Hanson after has been removed - Integumentary Integumentary Comment(s): Skin is warm and dry with evidence of good perfusion. Anterior chest incision well approximated and covered with dry intact dressing. Left lower extremity EVH site well approximated with Dermabond. - Neurologic Neurologic: Present: CNII-XII intact - Musculoskeletal Musculoskeletal: Present: gait normal, strength equal bilaterally - Psychiatric Psychiatric: Present: A&O x's 3, appropriate affect, intact judgment & insight - Labs CBC & Chem 7: 08/11/18 04:29 08/11/18 04:29 Labs: Abnormal Lab Results - Last 24 Hours (Table) 08/10/18 08/10/18 08/11/18 Range/Units 17:12 20:50 04:29 RBC 3.02 L (4.30-5.90) m/uL Hgb 9.5 L (13.0-17.5) gm/dL Hct 29.0 L (39.0-53.0) % Glucose (74-99) mg/dL POC Glucose (mg/dL) 108 H 114 H (75-99) mg/dL 08/11/18 08/11/18 08/11/18 Range/Units 04:29 07:55 11:52 RBC (4.30-5.90) m/uL Hgb (13.0-17.5) gm/dL Hct (39.0-53.0) % Glucose 114 H (74-99) mg/dL POC Glucose (mg/dL) 158 H 117 H (75-99) mg/dL Assessment and Plan Plan: 1 symptomatic multivessel coronary artery disease. The patient is post cardiac bypass surgery and the patient is postop day #4. Chest tubes to be removed today. Hemodynamically stable. 2 post thoracotomy, and a chest x-ray from today shows postsurgical changes without any acute abnormalities. 3 obstructive sleep apnea maintained on CPAP therapy on outpatient basis 4 hypertension 5 hyperlipidemia 6 prostate cancer previous radiation therapy to his prostate 7 moderate aortic stenosis without any significant gradient on his recent MELANIE Plan On today's evaluation, the patient is postop day #4. The patient has some trace pleural effusion and some atelectatic changes in lung bases. The right hemidiaphragm is slightly elevated and this is essentially postsurgical and we anticipate that this will improve. No respiratory distress. No cough or sputum production. Sternum stable clean and intact. Cardiac rhythm is sinus. Chest tubes have been removed. Cardiac medications are all up-to-date. Using incentive spirometer. Bronchodilators. Possible home within next 24-48 hours.
[2018-08-11] MEDS: amLODIPine 5 MG TAB PO SCH (12:47)
[2018-08-11 13:02] VITALS: BP 113/73; PULSE 81; RESP 21; TEMP 98.2
--- NOTE | 2018-08-11 13:22 | P.PN ---
Subjective Progress Note Date: 08/11/18 this is a pleasant 78-year-old gentleman well known to my practice, underlying history of CAD, prior cardiac stents, CHF, prostate cancer 2010, obstructive sleep apnea, admitted to ICU secondary to CABG procedure. He underwent a left cardiac cath 08/01/2018, after he a positive stress test suggestive off inferolateral reversible defect and fixed defect hypokinesia. He has previous interventions involving the LAD distal RCA PLB branch of RCA between 2001 and 2006.last cardiac cath showed 80% stenoses of the stented segment RCA, mid LAD stented with 50% in-stent stenosis, distal aspect of the stent was a 90% stenosis obtuse marginal branch 70% stenosis another mid lesion of 70-80% stenosis left main 25-30% and has a distal 25% lesion,. Patient underwentfour- vessel CABG on 08/07/2018by Dr. Avitia, requiring BLACKWELL to the LAD, saphenous vein graft to obtuse marginal artery, saphenous vein graft to posterior descending artery saphenous vein graft to posterolateral branch of the right coronary art torito. Patient currently is in ICU with mechanical ventilation receiving Levophed dripand nitro drip amiodarone dripd weaning parameters for sedation. 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 Carlin 08/08: Patient was extubated last evening. He is currently pulse oxing 93% on 7 L high flow nasal cannula. He has been afebrile, heart rate in 80s. Blood pressure 129/59. Repeat hemoglobin 10.6, white count 11.5. Blood sugars running between 116- 144. vice president investor relations is a sinus rhythm. Patient has been weaned off Cleviprex and IV nitro for radial artery spasm prophylaxis. The patient is currently on insulin drip which we will transition over to an NovoLog scheduled with meals and to hold if blood sugars less than 110. Patient does not diagnosis of diabetes. His hemoglobin A1c was 5.7 preoperatively. 08/09: Patient remains in intensive care unit but is doing very well. He has been ambulating. He may be transferred out of the intensive care unit today. He has not had a bowel movement since Tuesday but he feels that it will be soon. Chest tubes and Hanson are out. Discharge plan is possibly inpatient rehab. Patient has been afebrile, heart rate 82, blood pressure 111/74, pulse ox 94% on 3 L nasal cannula. Blood sugars are running between 121 and 143 while on scheduled NovoLog only which will be continued for now. WBC 11.3, hemoglobin 9.3. Creatinine 0.83. 08/10: Patient remains in intensive care unit still waiting for bed on cardiac stepdown unit. Patient states he did not have a bowel movement yesterday but feels it as soon. Blood sugars are running between 104 and 128. Patient states that he is hoping for discharge by tomorrow to home. vice president investor relations remains normal sinus rhythm. Patient has been hemodynamically stable. Patient has been able to ambulate well in the hallway. 08/11: Temperature max 99.3, heart rate 94, blood pressure 126/76, pulse ox 94% on room air. Hemoglobin stable at 9.5, electrolytes within normal limits as well as BUN and creatinine. Blood sugars running between 108 and 158. Repeat chest x-ray reveals persistent trace pleural effusion multifocal linear atelectasis. Chronic right hemidiaphragm elevation. Patient is being prepared for discharge home today. Patient will not require insulin post discharge. Objective - Vital Signs Vital signs: Vital Signs Temp 99.3 F 08/11/18 08:00 Pulse 92 08/11/18 08:13 Resp 16 08/11/18 08:00 BP 126/76 08/11/18 08:00 Pulse Ox 94 L 08/11/18 08:00 Intake & Output 08/10/18 08/11/18 08/11/18 18:59 06:59 18:59 Intake Total 500 250 Output Total 0 1 Balance 500 -1 250 Weight 75.8 kg Intake: Oral 500 250 Output: Urine 0 Stool 1 Other: Voiding Method Toilet Toilet Urinal Urinal # Voids 2 1 1 # Bowel Movements 1 ABP, PAP, CO, CI - Last Documented Arterial Blood Pressure 105/46 Pulmonary Artery Pressure 25/17 Cardiac Output 4.2 Cardiac Index 2.3 - Exam Review Of Systems: Constitutional: No fever, no chills, no night sweats. No weight change. No weakness, reports fatigue. EENT: No headache. No blurred vision or double vision, no loss of vision. No loss of Hearing, no ringing in the ears, no dizziness. No nasal drainage or congestion. No epistaxis. No sore throat. Lungs: No shortness of breath, cough, no sputum production. No wheezing. Cardiovascular: No chest pain, reports chest discomfort, no lower extremity edema. No palpitations. No paroxysmal nocturnal dyspnea. No orthopnea. No lightheadedness or dizziness. Abdominal: No abdominal pain. No nausea, vomiting. No diarrhea. No constipation. No bloody or tarry stools.. No loss of appetite. Genitourinary: No urinary retention. Musculoskeletal: No myalgias. No muscle weakness, no gait dysfunction, no frequent falls. No back pain. No neck pain. Integumentary: No wounds, no lesions. No rash or pruritus. No unusual bruising. No change in hair or nails. Neurologic: No aphasia. No facial droop. No change in mentation. No head injury. No headache. No paralysis. No paresthesia. Psychiatric: No depression. No anxiety. Endocrine: No abnormal blood sugars. No weight change. Gen: This is an 78-year-old male. He is resting in a recliner and appears to be comfortable and in no acute distress. HEENT: Head is atraumatic, normocephalic. Pupils equal, round. Sclerae is anicteric. NECK: Supple. No JVD. No lymphadenopathy. No thyromegaly. LUNGS: Diminished bilaterally Clear to auscultation. No wheezes or rhonchi. No intercostal retractions. HEART: Regular rate and rhythm. No murmur. ABDOMEN: Soft. Bowel sounds are present. No masses. No tenderness. EXTREMITIES: No pedal edema. No calf tenderness. SCDs and ASAD hose. NEUROLOGICAL: Patient is awake, alert and oriented x3. Cranial nerves 2 through 12 are grossly intact. - Labs CBC & Chem 7: 08/11/18 04:29 08/11/18 04:29 Labs: Abnormal Lab Results - Last 24 Hours (Table) 08/10/18 08/10/18 08/10/18 Range/Units 12:05 17:12 20:50 RBC (4.30-5.90) m/uL Hgb (13.0-17.5) gm/dL Hct (39.0-53.0) % Glucose (74-99) mg/dL POC Glucose (mg/dL) 104 H 108 H 114 H (75-99) mg/dL 08/11/18 08/11/18 08/11/18 Range/Units 04:29 04:29 07:55 RBC 3.02 L (4.30-5.90) m/uL Hgb 9.5 L (13.0-17.5) gm/dL Hct 29.0 L (39.0-53.0) % Glucose 114 H (74-99) mg/dL POC Glucose (mg/dL) 158 H (75-99) mg/dL Assessment and Plan Plan: 1. CAD with 4 vessel quadruple bypass on 08/07/2018 BLACKWELL to the LAD, saphenous vein graft to obtuse marginal artery, saphenous vein graft to posterior descending artery, saphenous vein graft to posterolateral branch of RCA. Patient successfully extubated and managed by Dr. Carlin. Continue current plan of care per cardiothoracic team. Continue aspirin, Zetia, Lopressor. No rvasc was started for radial artery spasm prophylaxis. Continue incentive spirometry. Continue NovoLog scheduled 3 units with meals and hold for blood sugar less than 110--this will be discontinued at discharge. 2. CAD with prior history with 7 cardiac stents between [id number] 3. History of diastolic CHF, with EF 50-55% July 2018, normal right medical systolic pressure, has mild MR and mild TR, moderate aortic stenosis 4. Moderate aortic stenosis with peak gradient across the valve of 38 mmhg/20 mmHg. surveilance thru echo as OP 5. History of prostate cancer, with prior radiation treatment, no active treatments ongoing 6. History of obstructive sleep apnea, on CPAP device at home 7. hypertension. 8. gi prophylaxis- protonix /stool softeners 9. dvt prophylaxis heparin Discharge plan: Home with [facility] Impression and plan of care have been directed as dictated by the signing physician. Monique Linder nurse practitioner acting as scribe for signing physician.
--- NOTE | 2018-08-11 14:25 | P.DS ---
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 Severe triple-vessel coronary artery disease 2. History of coronary artery disease with myocardial infarction in the past status post multiple coronary stenting 3. Moderate aortic stenosis on transthoracic echocardiogram without gradient across the aortic valve on heart catheterization 4. Hypertension 5. Hyperlipidemia 6. Prostate cancer, status post radiation 7-8 years ago 7. Obstructive sleep apnea with home CPAP use 8. Never smoker, long history of secondhand smoke exposure 9. Multiple family members from myocardial infarction before the age of 70 10. Postoperative acute blood loss anemia, expected PRINCIPAL PROCEDURE: 1. Elective coronary bypass grafting 4 vessels, left internal mammary artery to the left anterior descending artery, a reverse greater saphenous vein graft to the obtuse marginal artery, a reverse greater saphenous vein graft to the posterior descending artery and a reverse greater saphenous vein graft to the posterior lateral branch of the right coronary artery 2. Endoscopic harvesting of the left greater saphenous vein 3. Epi-aortic ultrasound 4. Intraoperative transesophageal echocardiogram HISTORY OF PRESENT ILLNESS: This is an active 78-year-old gentleman who follows on an outpatient basis with Dr. Lima. He had been having increasing symptoms of chest pressure, fatigue, and shortness of breath over the previous several weeks. He denied any other aggravating or alleviating symptoms. He was seen by Dr. RIO Medel, underwent a stress test which demonstrated inferior wall fixed defect and inferolateral. Infarct ischemia. In addition he had a transthoracic echocardiogram demonstrating normal systolic function with ejection fraction 50- 55%, and moderate aortic stenosis with peak/mean gradient across the aortic valve 33.06 mmHg/20.07 mmHg. He was recommended to undergo heart catheterization which demonstrated RCA stenosis 80% with PLB stenosis 90%, mid LAD stenosis 95%, circumflex stenosis of 75% without any gradient across the aortic valve. Consultation was placed to Dr. Avitia from cardiothoracic surgery. He was recommended to undergo coronary artery bypass graft surgery. The usual perioperative course was discussed in detail with the patient and his family, all risks and benefits were explained, all questions were answered, and consent was obtained to proceed with surgery. The patient was discharged to home on maximal medical therapy to return as an outpatient for surgery at the earliest possible surgery date. HOSPITAL COURSE: The patient was brought to the hospital on 08/07/2018, taken to the preoperative area, prepared in the usual fashion, and subsequently taken to the operating room where Dr. Avitia performed elective coronary bypass grafting 4 vessels, left internal mammary artery to the left anterior descending artery, a reverse greater saphenous vein graft to the obtuse marginal coronary artery, a reverse greater saphenous vein graft to the posterior descending artery, and a reverse greater saphenous vein graft to the posterior lateral branch of the right coronary artery, endoscopic harvesting of the left greater saphenous vein, epi-aortic ultrasound, and intraoperative transesophageal echocardiogram. Upon completion of surgery the patient was transferred to the cardiovascular intensive care unit where he was recovered, monitored hemodynamically, and where he progressed to cardiac rehabilitation phase 1. He was extubated, all lines, tubes, and supportive drips were discontinued when appropriate, and transfer orders were placed for 3 S. cardiac stepdown unit, however due to lack of bed availability the patient remained on ICU as a stepdown patient until discharge. His oxygen was titrated down, he continued to work with physical, occupational therapy and cardiac rehab, he was tolerating an oral diet, his pain was controlled, and he was ready to be discharged to home with [facility] on postoperative day # 4. He has received written and verbal instruction regarding his medications, activity restrictions, signs and symptoms requiring physician notification, and his follow-up appointments. COMPLICATIONS: The patient experienced no postoperative complications. CONSULTS: 1. Dr. RIO Medel for cardiology management. 2. Dr. Lima for medical management. 3. Dr. Carlin for pulmonary and ventilator management. DISCHARGE INSTRUCTIONS: 1. No driving for 4 weeks, or until physician gives their ok. 2. The patient should sleep in their own bed, no medical bed needed. 3. Stairs are not an issue. If the bedroom is upstairs, it is advised that the patient go up at night and down in the morning for the first week. Go slowly, using handrail and take 1 step at a time. 4. ASAD hose are to be worn for 30 days or until physician discontinues. 5. Heart hugger is to be worn 100% of the time until physician discontinues.(except when showering) 6. No lifting, pushing, or pulling more than 10 pounds for 12 weeks. The physician will advise of any restriction changes. 7. The patient is expected to continue the prescribed walking program. 8. Continue pain control per as needed orders. 9. Continue with incentive spirometry and splinting/heart hugger until otherwise directed by the physician. 10. Must shower daily using liquid antibacterial soap and a separate white washcloth for each individual incision. 11. Routine sternal incision care. No powders, lotions, ointments on incisions. 12. Please call surgeon/BLOWN FILM EXTRUSION OPERATOR for temp greater than 101 F or purulent drainage from incisions. 13. All prescriptions given by surgeon for 30 days. Refills need to be filled through material assembler/primary care physician. 14. A Red armband has been placed on the patient. It should be worn for 30 days post surgery and will be removed by the cardiac surgeons. If an ER visit is necessary, please make sure the number on the Red armband is called. HOME HEALTH SERVICES TO PROVIDE: RN SKILLED HOME CARE SERVICES FOR POST-OP SURGICAL PATIENTS WITH THE FOLLOWING: Coronary Artery Bypass Surgery (CABG), Mitral Valve Replacement/Repair ( MVR), Aortic Valve Replacement/Repair (AVR) RN TO CONTINUE EDUCATION FROM ``ROAD TO A HEALTH HEART PATIENT EDUCATION MANUAL (GIVEN TO PATIENT IN THE HOSPITAL) MEDICATION RECONCILIATION WITH EDUCATION NEEDED ON FIRST HOME VISIT EMPHASIZE IMPORTANCE OF WEARING BREAST SUPPORT/HEART HUGGER ENCOURAGE USE OF INCENTIVE SPIROMETER 10 X EVERY HOUR WHILE AWAKE ENCOURAGE UTILIZATION OF LOWER EXTREMITY COMPRESSION STOCKINGS/ASAD HOSE and ELEVATE LEGS ABOVE LEVEL OF HEART WHILE AT REST. ENCOURAGE AMBULATION 3-5x/day INCREASING TOLERATES, WHILE AVOID EXTREMES IN TEMPERATURE FREQUENCY: RN TO OPEN THE PATIENT WITHIN 24 HOURS OF DISCHARGE FROM THE HOSPITAL WITH TELEHEALTH INSTALLED AT [facility], RN TO VISIT 2-3 X A WEEK FOR 4 WEEKS ESTABLISHED BY PATIENT NEEDS. LABORATORY: CBC, CMP TO BE DRAWN ON THE THIRD DAY HOME. (RAN STAT) FAX RESULTS TO [phone]. TELEHEALTH PARAMETERS: WEIGHT: NOTIFY MD OF WEIGHT GAIN OF 2 LBS IN 24 HOURS OR 5 LBS IN ONE WEEK HR: NOTIFY MD OF HR <55 BPM OR HR>100 BPM BP: NOTIFY MD IF BP <90/55 OR BP>140/100 O2 SAT: NOTIFY MD IF PO2<93% ON ROOM AIR SEND TELEHEALTH REPORT TO DIRECTOR ADVANCED AND CARDIOVASCULAR SURGEON THE FIRST WEEK OF CARE AND THEN BI-WEEKLY. PLEASE ADDITIONALLY COMMUNICATE ANY ABNORMALS AND NEW FINDINGS TO THE SURGEONS OFFICE. The patient will not be discharged home on a statin or Plavix due to intolerance of these medications. Plan - Discharge Summary Discharge Rx Participant: Yes New Discharge Prescriptions: New Aspirin 325 mg PO DAILY #30 tab Metoprolol Tartrate [Lopressor] 50 mg PO BID #60 tab amLODIPine [Norvasc] 5 mg PO DAILY@1200 #30 tab Pantoprazole [Protonix] 40 mg PO AC-BRKFST #30 tablet.dr Song-Docusate Sodium [Senokot-S] 2 each PO HS #14 tab Acetaminophen Tab [Tylenol] 1,000 mg PO Q6HR PRN #120 tab PRN Reason: Fever And/ Or Pain Ezetimibe [Zetia] 10 mg PO DAILY #30 tab Discontinued Lisinopril [Zestril] 10 mg PO DAILY Ezetimibe [Zetia] 10 mg PO Q48H Atenolol [Tenormin] 25 mg PO HS Aspirin [Adult Low Dose Aspirin EC] 81 mg PO DAILY Discharge Medication List Acetaminophen Tab [Tylenol] 1,000 mg PO Q6HR PRN #120 tab 08/11/18 [Rx] Aspirin 325 mg PO DAILY #30 tab 08/11/18 [Rx] Ezetimibe [Zetia] 10 mg PO DAILY #30 tab 08/11/18 [Rx] Metoprolol Tartrate [Lopressor] 50 mg PO BID #60 tab 08/11/18 [Rx] Pantoprazole [Protonix] 40 mg PO AC-BRKFST #30 tablet. 08/11/18 [Rx] Sennosides-Docusate Sodium [Senokot-S] 2 each PO HS #14 tab 08/11/18 [Rx] amLODIPine [Norvasc] 5 mg PO DAILY@1200 #30 tab 08/11/18 [Rx] Follow up Appointment(s)/Referral(s): [place] NPC [Nurse Practitioner] - 08/18/18 10:30 am Layne Medel MD [STAFF PHYSICIAN] - 2 Weeks (Office will call with appointment time) Ashley Lima MD [Primary Care Provider] - 2 Weeks (Office will call with appointment time) Nica Jauregui NPC [Nurse Practitioner] - 09/06/18 3:00 pm [facility], [NON-STAFF] - 1-2 Days Avel Avitia MD [STAFF PHYSICIAN] - 09/08/18 10:15 am Ambulatory/Diagnostic Orders: Complete Blood Count w/diff [LAB.AMB] Time Frame: 08/14/18, Facility: [facility], Location: [facility] Comprehensive Metabolic Panel [LAB.AMB] Time Frame: 08/14/18, Facility: [facility], Location: [facility] Activity/Diet/Wound Care/Special Instructions: DISCHARGE INSTRUCTIONS: 1. No driving for 4 weeks, or until physician gives their ok. 2. The patient should sleep in their own bed, no medical bed needed. 3. Stairs are not an issue. If the bedroom is upstairs, it is advised that the patient go up at night and down in the morning for the first week. Go slowly, using handrail and take 1 step at a time. 4. ASAD hose are to be worn for 30 days or until physician discontinues. 5. Heart hugger is to be worn 100% of the time until physician discontinues.(except when showering) 6. No lifting, pushing, or pulling more than 10 pounds for 12 weeks. The physician will advise of any restriction changes. 7. The patient is expected to continue the prescribed walking program. 8. Continue pain control per as needed orders. 9. Continue with incentive spirometry and splinting/heart hugger until otherwise directed by the physician. 10. Must shower daily using liquid antibacterial soap and a separate white washcloth for each individual incision. 11. Routine sternal incision care. No powders, lotions, ointments on incisions. 12. Please call surgeon/BLOWN FILM EXTRUSION OPERATOR for temp greater than 101 F or purulent drainage from incisions. 13. All prescriptions given by surgeon for 30 days. Refills need to be filled through material assembler/primary care physician. 14. A Red armband has been placed on the patient. It should be worn for 30 days post surgery and will be removed by the cardiac surgeons. If an ER visit is necessary, please make sure the number on the Red armband is called. HOME HEALTH SERVICES TO PROVIDE: RN SKILLED HOME CARE SERVICES FOR POST-OP SURGICAL PATIENTS WITH THE FOLLOWING: Coronary Artery Bypass Surgery (CABG), Mitral Valve Replacement/Repair ( MVR), Aortic Valve Replacement/Repair (AVR) RN TO CONTINUE EDUCATION FROM ``ROAD TO A HEALTH HEART PATIENT EDUCATION MANUAL (GIVEN TO PATIENT IN THE HOSPITAL) MEDICATION RECONCILIATION WITH EDUCATION NEEDED ON FIRST HOME VISIT EMPHASIZE IMPORTANCE OF WEARING BREAST SUPPORT/HEART HUGGER ENCOURAGE USE OF INCENTIVE SPIROMETER 10 X EVERY HOUR WHILE AWAKE ENCOURAGE UTILIZATION OF LOWER EXTREMITY COMPRESSION STOCKINGS/ASAD HOSE and ELEVATE LEGS ABOVE LEVEL OF HEART WHILE AT REST. ENCOURAGE AMBULATION 3-5x/day INCREASING TOLERATES, WHILE AVOID EXTREMES IN TEMPERATURE FREQUENCY: RN TO OPEN THE PATIENT WITHIN 24 HOURS OF DISCHARGE FROM THE HOSPITAL WITH TELEHEALTH INSTALLED AT [facility], RN TO VISIT 2-3 X A WEEK FOR 4 WEEKS ESTABLISHED BY PATIENT NEEDS. LABORATORY: CBC, CMP TO BE DRAWN ON THE THIRD DAY HOME. (RAN STAT) FAX RESULTS TO [phone]. TELEHEALTH PARAMETERS: WEIGHT: NOTIFY MD OF WEIGHT GAIN OF 2 LBS IN 24 HOURS OR 5 LBS IN ONE WEEK HR: NOTIFY MD OF HR <55 BPM OR HR>100 BPM BP: NOTIFY MD IF BP <90/55 OR BP>140/100 O2 SAT: NOTIFY MD IF PO2<93% ON ROOM AIR SEND TELEHEALTH REPORT TO DIRECTOR ADVANCED AND CARDIOVASCULAR SURGEON THE FIRST WEEK OF CARE AND THEN BI-WEEKLY. PLEASE ADDITIONALLY COMMUNICATE ANY ABNORMALS AND NEW FINDINGS TO THE SURGEONS OFFICE. Discharge Disposition: HOME WITH HOME HEALTH SERVICES
--- NOTE | 2018-08-11 15:31 | P.PN ---
Subjective Progress Note Date: 08/11/18 This is a 78-year-old gentleman who is status post aortic and bypass surgery. Patient is doing very well. He is sitting up in the chair and doesn't appear to be in acute distress. No arrhythmias detected. His blood pressures also fairly controlled. Overall patient seemed to be making good progress. 08/10/2018: This patient is status post bypass surgery. Clinically doing well. Chest tubes have been removed. Patient is maintaining sinus rhythm. No complaints of any chest pain or shortness of breath. Tolerating activity. Patient is also eating well. Probable patient could be transferred to telemetry unit. Continue current medical therapy. 08/11/2018: This patient is doing very well. No arrhythmias. Tolerating activity very well. No complaints of any chest pain or shortness of breath. His lungs appeared to be showing good air exchange. Heart is regular. Patient may be discharged home today. Follow-up in our office in one to 2 weeks' time Objective - Vital Signs Vital signs: Vital Signs Temp 98.2 F 08/11/18 12:00 Pulse 81 08/11/18 12:00 Resp 21 08/11/18 12:00 BP 113/73 08/11/18 12:00 Pulse Ox 95 08/11/18 12:00 Intake & Output 08/10/18 08/11/18 08/11/18 18:59 06:59 18:59 Intake Total 500 500 Output Total 0 1 Balance 500 -1 500 Weight 75.8 kg Intake: Oral 500 500 Output: Urine 0 Stool 1 Other: Voiding Method Toilet Toilet Urinal Urinal # Voids 2 1 2 # Bowel Movements 1 ABP, PAP, CO, CI - Last Documented Arterial Blood Pressure 105/46 Pulmonary Artery Pressure 25/17 Cardiac Output 4.2 Cardiac Index 2.3 - Exam GENERAL EXAM: Patient is alert and oriented and doesn't appear to be in any acute distress HEENT: Normocephalic. Normal reaction of pupils, equal size, normal range of extraocular motion. No erythema or exudates in the throat. NECK: No masses, no nuchal rigidity. CHEST: Postsurgical LUNGS: Equal air entry with no crackles or wheeze. HEART: S1 and S2 normal with no audible mumurs or gallops. Regular rhythm, femorals equal on both sides.. ABDOMEN: No hepatosplenomegaly, normal bowel sounds, no guarding or rigidity. SKIN: No rashes CENTRAL NERVOUS SYSTEM: No focal deficits. EXTREMITIES: No cyanosis, clubbing or edema. - Labs CBC & Chem 7: 08/11/18 04:29 08/11/18 04:29 Labs: Abnormal Lab Results - Last 24 Hours (Table) 08/10/18 08/10/18 08/11/18 Range/Units 17:12 20:50 04:29 RBC 3.02 L (4.30-5.90) m/uL Hgb 9.5 L (13.0-17.5) gm/dL Hct 29.0 L (39.0-53.0) % Glucose (74-99) mg/dL POC Glucose (mg/dL) 108 H 114 H (75-99) mg/dL 08/11/18 08/11/18 08/11/18 Range/Units 04:29 07:55 11:52 RBC (4.30-5.90) m/uL Hgb (13.0-17.5) gm/dL Hct (39.0-53.0) % Glucose 114 H (74-99) mg/dL POC Glucose (mg/dL) 158 H 117 H (75-99) mg/dL Assessment and Plan (1) S/P CABG (coronary artery bypass graft) Current Visit: Yes Status: Acute Code(s): Z95.1 - PRESENCE OF AORTOCORONARY BYPASS GRAFT SNOMED Code(s): 914115596 (2) CAD (coronary artery disease) Current Visit: Yes Status: Acute Code(s): I25.10 - ATHSCL HEART DISEASE OF [place] CORONARY ARTERY W/O ANG PCTRS SNOMED Code(s): 32949762 (3) History of hypertension Current Visit: Yes Status: Acute Code(s): Z86.79 - PERSONAL HISTORY OF OTHER DISEASES OF THE CIRCULATORY SYSTEM SNOMED Code(s): 451895264 Plan: Patient is clinically doing well. Vital signs are stable. No arrhythmias. Pacemaker wire was pulled out. Patient be discharged home.
== END 2018-08-11 15:45 | disposition home health service (06) | DRG 236 ==
LOC: 2ORMAIN 05:29 → 2SICU 15:26
PROVIDERS: ADMIT Surgery; ATTEND Surgery
PROC: 06BQ4ZZ Excision of Left Saphenous Vein, Percutaneous Endoscopic Approach (ICD-10-PCS; 2018-08-07)
PROC: 5A1221Z Performance of Cardiac Output, Continuous (ICD-10-PCS; 2018-08-07)
PROC: B24BZZ4 Ultrasonography of Heart with Aorta, Transesophageal (ICD-10-PCS; 2018-08-07)
PROC: 021209W Bypass Coronary Artery, Three Arteries from Aorta with Autologous Venous Tissue, Open Approach (ICD-10-PCS; principal; 2018-08-07 08:00)
PROC: 02100Z9 Bypass Coronary Artery, One Artery from Left Internal Mammary, Open Approach (ICD-10-PCS; 2018-08-07 08:00)
DX: I25.10 Atherosclerotic heart disease of native coronary artery without angina pectoris (principal); D62 Acute posthemorrhagic anemia; I50.32 Chronic diastolic (congestive) heart failure; T82.855A Stenosis of coronary artery stent, initial encounter; J98.11 Atelectasis; I11.0 Hypertensive heart disease with heart failure; I35.0 Nonrheumatic aortic (valve) stenosis; E78.5 Hyperlipidemia, unspecified; G47.33 Obstructive sleep apnea (adult) (pediatric); I25.2 Old myocardial infarction; M19.90 Unspecified osteoarthritis, unspecified site; N42.9 Disorder of prostate, unspecified; Y83.1 Surgical operation with implant of artificial internal device as the cause of abnormal reaction of the patient, or of later complication, without mention of misadventure at the time of the procedure; Z77.22 Contact with and (suspected) exposure to environmental tobacco smoke (acute) (chronic); Z79.82 Long term (current) use of aspirin; Z79.899 Other long term (current) drug therapy; Z85.46 Personal history of malignant neoplasm of prostate; Z95.5 Presence of coronary angioplasty implant and graft; Z92.3 Personal history of irradiation; Z88.5 Allergy status to narcotic agent; Z91.040 Latex allergy status; Z80.3 Family history of malignant neoplasm of breast; Z82.49 Family history of ischemic heart disease and other diseases of the circulatory system
CPT/HCPCS: 71045; 71046; 74018; 80048; 80053; 82330; 82805; 83735; 84100; 85025; 85027; 85520; 85610; 85730; 86850; 86891; 86900; 86901; 86920; 94002; 94640

== ENCOUNTER → 2018-09-14 | Outpatient (CLI) | payer MEDICARE, BC ==
[2018-09-14 16:38] LABS: African American GFR (CKD) 93.2 (60.0-200.0); BUN/Creat Ratio 14.44 Ratio (12.00-20.00); Calcium 9.1 mg/dL (8.7-10.3); Magnesium 2.1 mg/dL (1.5-2.4)
== END | disposition home or self-care (01) ==
LOC: LABWHC1 09:04
PROVIDERS: ATTEND Nurse Practitioner
DX: Z51.89 Encounter for other specified aftercare (principal); Z95.1 Presence of aortocoronary bypass graft
CPT/HCPCS: 36415; 80048; 83735

== ENCOUNTER → 2018-10-27 | Outpatient (CLI) | payer MEDICARE, BC ==
[2018-10-27 09:06] LABS: African American GFR (CKD) >90 (>60 ml/min/1.73 sqM); Anion Gap 8 mmol/L; Blood Urea Nitrogen 15 mg/dL (9-20); Calcium 9.4 mg/dL (8.4-10.2); Carbon Dioxide 29 mmol/L (22-30); Chloride 104 mmol/L (98-107); Glucose 102 mg/dL (74-99); Magnesium 2.1 mg/dL (1.6-2.3); Potassium 4.6 mmol/L (3.5-5.1); Sodium 141 mmol/L (137-145)
== END | disposition home or self-care (01) ==
LOC: LABWHC1 08:40
PROVIDERS: ATTEND Nurse Practitioner
DX: I10 Essential (primary) hypertension (principal)
CPT/HCPCS: 36415; 80048; 83735

== ENCOUNTER → 2019-10-09 | Outpatient (CLI) | payer MEDICARE, BC | END | disposition home or self-care (01) | LOC: LABWHC1 11:17 | PROVIDERS: ATTEND Psychiatry & Neurology Psychiatry | DX: U07.1 COVID-19 (principal) | CPT/HCPCS: U0003; C9803 ==

== ENCOUNTER → 2019-10-15 | Outpatient (CLI) | payer MEDICARE, BC ==
[2019-10-15 16:02] LABS: HCT 44.2 % (39.0-53.0); HGB 14.3 gm/dL (13.0-17.5); MCH 30.9 pg (25.0-35.0); MCHC 32.2 g/dL (31.0-37.0); Platelet Count 230 k/uL (150-450); RBC 4.61 m/uL (4.30-5.90); RDW 12.9 % (11.5-15.5); WBC 7.1 k/uL (3.8-10.6)
== END | disposition home or self-care (01) ==
LOC: LABPAT 14:45
PROVIDERS: ATTEND Surgery
DX: Z01.818 Encounter for other preprocedural examination (principal)
CPT/HCPCS: 85027

== ENCOUNTER 2019-10-18 09:13 | Day surgery (SDC) | payer MEDICARE, BC ==
[2019-10-12 14:05] VITALS: BMI 25.8
[~2019-10-18 09:13] MED LIST changes: -ALBUMIN HUMAN 25% 50 ML IV ONE; -ASPIRIN 325 MG TAB PO ONE; -ATORVASTATIN 10 MG TAB PO ONE; -CALCIUM CHLORIDE 100 MG/ML 10 ML SYRINGE IV ONE; -CHLORHEXIDINE GLUCONATE 15 ML CUP MUCOUS MEM ONE; -CLEVIDIPINE BUTYRATE 25 MG in EMPTY BAG 1 BAG IV ONE; -DEXTROSE 5% IN WATER 1,000 ML with POTASSIUM CHLORIDE 110 MEQ, MAGNESIUM SULFATE 16 MEQ... IV ONE; -DEXTROSE 5% IN WATER 1,000 ML with POTASSIUM CHLORIDE 25 MEQ, SODIUM CHLORIDE 2.5MEQ/ML... IRRIGATION ONE; -HEPARIN SODIUM 1,000 UN/ML (10ML VL) IV ONE; -HEPARIN SODIUM,PORCINE 5,000 UNIT in SODIUM CHLORIDE 0.9% 500 ML 500 ML IV ONE; +HEPARIN SODIUM,PORCINE 5,000 UNIT/ML 1 ML VIAL SQ ONE; -INSULIN REGULAR 100 UNIT in SODIUM CHLORIDE 0.9% 100 ML IV ONE; -LACTATED RINGERS 1,000 ML IV ONE; +LACTATED RINGERS 1,000 ML IV SCH; -MAGNESIUM SULFATE MG 500 MG/ML IV ONE; -MANNITOL 25% 12.5 GM/50 ML VIAL IV ONE; -METOPROLOL TARTRATE 12.5 MG TAB PO ONE; -NITROGLYCERIN-D5W PMX 25 MG/250 ML BTL IV ONE; -NITROGLYCERIN-D5W PMX 50 MG in DEXTROSE/WATER 1 250ML.BAG IV ONE; -NOREPINEPHRINE 4 MG in SODIUM CHLORIDE 0.9% 250 ML IV ONE; +ONDANSETRON 4 MG/2 ML VIAL IVP ONE; -PAPAVERINE 360 MG in SODIUM CHLORIDE 0.9% 90 ML IV ONE; -PHENYLEPHRINE 10 MG/ML VIAL IV ONE; -PHENYLEPHRINE 40 MG in SODIUM CHLORIDE 0.9% 250 ML IV ONE; -PROPOFOL 1,000 MG/100 ML VIAL IV ONE; -PROTAMINE SULFATE 10 MG/ML 25 ML VIAL IV ONE; -PROTAMINE SULFATE 250 MG in EMPTY BAG 1 BAG IV ONE; +Pre Op ABX Message 1 EACH MISC MISCELLANE ONE; -SODIUM BICARB 8.4% 50 ML SYR (1 MEQ/ML) IV ONE; -SODIUM CHLORIDE 0.9% 1,000 ML IV ONE; -TRANEXAMIC ACID 2,000 MG in SODIUM CHLORIDE 0.9% 80 ML IV ONE; -VANCOMYCIN 1,000 MG VIAL MISCELLANE ONE; -ceFAZolin 1,000 MG in SODIUM CHLORIDE 0.9% IRRIGATIO 1,000 ML IRRIGATION ONE; -ceFAZolin 2,000 MG in SODIUM CHLORIDE 0.9% 30 ML IVPB ONE; -ceFAZolin IN SWFI 2 GM/20 ML SYRINGE IVP ONE
[2019-10-18] MEDS ORDERED: HEPARIN SODIUM,PORCINE 5,000 UNIT/ML 1 ML VIAL ONE (10:02)
[2019-10-18] MEDS ORDERED: ONDANSETRON 4 MG/2 ML VIAL ONE (10:02)
[2019-10-18] MEDS ORDERED: DEXAMETHASONE SOD PHOSPHATE 10 MG/ML 1 ML VIAL IV ONE (10:25)
[2019-10-18 10:40] LABS: African American GFR (CKD) >90 (>60 ml/min/1.73 sqM); Anion Gap 6 mmol/L; Blood Urea Nitrogen 20 mg/dL (9-20); Calcium 9.1 mg/dL (8.4-10.2); Carbon Dioxide 27 mmol/L (22-30); Chloride 105 mmol/L (98-107); Glucose 104 mg/dL (74-99); Non-African American GFR(CKD) 78 (>60 ml/min/1.73 sqM); Potassium 4.3 mmol/L (3.5-5.1); Sodium 138 mmol/L (137-145)
[2019-10-18] MEDS ORDERED: NEOSTIGMINE 1 MG/ML 10 ML VIAL ONE (11:09)
[2019-10-18] MEDS ORDERED: LIDOCAINE 1% INJ 10MG/ML (20 ML MDV) ONE (11:09)
[2019-10-18] MEDS ORDERED: PHENYLEPHRINE-0.9% NACL SYG 1 MG/10 ML SYRINGE ONE (11:09)
[2019-10-18] MEDS ORDERED: ePHEDrine SULFATE/0.9% NACL/PF 50 MG/5 ML SYRINGE IV ONE (11:09)
[2019-10-18] MEDS ORDERED: GLYCOPYRROLATE 0.2 MG/ML 2 ML VIAL ONE (11:09)
[2019-10-18] MEDS ORDERED: fentaNYL (PF) 50 MCG/ML 2 ML AMP ONE (11:09)
[2019-10-18] MEDS ORDERED: PROPOFOL 10 MG/ML 20 ML VIAL IV ONE (11:09)
[2019-10-18] MEDS ORDERED: SUCCINYLCHOLINE CHLORIDE 100 MG/5 ML SYR IV ONE (11:09)
[2019-10-18] MEDS ORDERED: MIDAZOLAM 2 MG/2 ML VIAL ONE (11:09)
[2019-10-18] MEDS ORDERED: ROCURONIUM BROMIDE 10 MG/ML 5 ML VIAL IV ONE (11:09)
[2019-10-18] MEDS ORDERED: LIDOCAINE 1%-EPI 1:100,000 20 ML VIAL SQ ONE (11:57)
--- NOTE | 2019-10-18 12:53 | P.OP ---
Date of Procedure: 10/18/19 Preoperative Diagnosis: Incisional hernia Postoperative Diagnosis: Incisional hernia Procedure(s) Performed: Robotic incisional hernia repair with mesh Anesthesia: ELY Surgeon: Arleth Fowler Pathology: none sent Condition: stable Disposition: same day Indications for Procedure: 79-year-old presents today for a robotic incisional hernia repair. He is noted to have a history of a CABG approximately 1 year ago. He has noticed over the past few months that he has developed a bulge at the inferior portion of his CABG incision. This has become uncomfortable for the patient he has requested surgical repair. Risks, benefits and alternatives were provided to the patient. The patient did provide his consent prior to attending the operating suite. Operative Findings: Incisional hernia noted at the base of the sternum extending inferiorly Description of Procedure: The patient was brought to the operating suite and placed in supine position on the operating table. Sedation was provided by anesthesia and the patient underwent endotracheal intubation. The patient was then prepped and draped in regular sterile fashion. A infraumbilical incision was a dissection was carried to the fascia the fascia was incised. A 12 mm scope port was placed. Pneumoperitoneum was achieved. 2 additional 8 mm ports were then placed 11 cm lateral to this site on either side. The incisional hernia was clearly visualized. It was noted to begin just at the base of the sternum and extended inferiorly. The base of the sternum was noted to also have a defect, likely from the previous requiring from the CABG. At this point the robot equipment was docked. A Stratafix 1-0 suture with large barbs was used to reapproximate the hernia defect. Once this was completed, the S4 ligament was taken down with cautery. A 11.4 cm Bard Echo ventral mesh was then placed into the abdomen. A Marino Starkey device was used to grab the catheter and placed the mesh in the appropriate position. The mesh was then secured to the abdominal wall using 20V lock suture. The mesh was noted to have appropriate coverage over the herniated site. At this point, all sutures were removed from the abdomen and the balloon portion of the mesh was removed as well. Marino-Katelynn device and 0 Vicryl suture were used to close the infraumbilical incision site. All skin incisions were then closed with 4-0 Vicryl subcutaneous suture. The patient was awakened in the operating suite and taken to postanesthesia care unit in stable condition.
[2019-10-18 12:54] VITALS: TEMP 96.8
[2019-10-18] MEDS: HYDROmorphone 0.5 MG/0.5 ML SYRINGE IVP PRN ×4 (13:02→13:31)
[2019-10-18] MEDS ORDERED: LACTATED RINGERS 1,000 ML IV ONE ×2 (13:10)
[2019-10-18] MEDS ORDERED: KETOROLAC 15 MG/ML 1 ML VIAL ONE (14:00)
[2019-10-18] MEDS ORDERED: KETOROLAC 15 MG/ML 1 ML VIAL IVP ONE (14:01)
[2019-10-18 15:25] VITALS: PULSE 75
[2019-10-18 15:52] VITALS: BP 147/83; RESP 18
== END 2019-10-18 16:14 | disposition home or self-care (01) ==
LOC: OR 09:13
PROVIDERS: ATTEND Surgery
DX: K43.2 Incisional hernia without obstruction or gangrene (principal); I25.10 Atherosclerotic heart disease of native coronary artery without angina pectoris; I11.0 Hypertensive heart disease with heart failure; I50.9 Heart failure, unspecified; C61 Malignant neoplasm of prostate; E78.5 Hyperlipidemia, unspecified; G47.33 Obstructive sleep apnea (adult) (pediatric); F41.8 Other specified anxiety disorders; E78.00 Pure hypercholesterolemia, unspecified; M19.90 Unspecified osteoarthritis, unspecified site; M10.9 Gout, unspecified; Z95.1 Presence of aortocoronary bypass graft; Z88.5 Allergy status to narcotic agent; Z91.040 Latex allergy status; Z79.1 Long term (current) use of non-steroidal anti-inflammatories (NSAID); Z79.82 Long term (current) use of aspirin; Z79.899 Other long term (current) drug therapy; Z99.89 Dependence on other enabling machines and devices; Z88.2 Allergy status to sulfonamides; Z82.49 Family history of ischemic heart disease and other diseases of the circulatory system
CPT/HCPCS: 80048; 49654; C1781; J2250; J1644; J1100; J2710; J0690; J2405; J2001; J3010; J1885; J2370; J0330; J2704; J1170

== ENCOUNTER → 2019-12-05 | Outpatient (CLI) | payer MEDICARE, BC ==
[2019-12-05 09:38] LABS: Basophils % (A) 1 %; Eosinophils # (A) 0.3 k/uL (0-0.7); Eosinophils % (A) 4 %; HCT 44.9 % (39.0-53.0); HGB 14.5 gm/dL (13.0-17.5); Lymphocytes # (A) 2.2 k/uL (1.0-4.8); Lymphocytes % (A) 28 %; MCH 31.2 pg (25.0-35.0); MCHC 32.4 g/dL (31.0-37.0); MCV 96.2 fL (80.0-100.0); Mean Platelet Volume 6.5; Monocytes # (A) 0.6 k/uL (0-1.0); Monocytes % (A) 8 %; Neutrophils # (A) 4.5 k/uL (1.3-7.7); Neutrophils % (A) 57 %; Platelet Count 244 k/uL (150-450); RBC 4.67 m/uL (4.30-5.90); RDW 13.1 % (11.5-15.5); WBC 7.8 k/uL (3.8-10.6)
[2019-12-05 18:51] LABS: Hemoglobin A1C 5.6 % (4.0-6.0)
[2019-12-05 18:59] LABS: African American GFR (CKD) 81.4 (60.0-200.0); Albumin 4.2 g/dL (3.80-4.90); Albumin/Globulin Ratio 2.1 (1.60-3.17); Anion Gap 8.4 mmol/L (4.00-12.00); Calcium 9.3 mg/dL (8.7-10.3); Carbon Dioxide 26.6 mmol/L (21.6-31.8); Chol/HDL Ratio 5.67; Magnesium 1.9 mg/dL (1.5-2.4); Non-African American GFR(CKD) 70.3 (60.0-200.0); Potassium 4.6 mmol/L (3.5-5.5); Total Bilirubin 0.6 mg/dL (0.2-1.2); Total Protein 6.2 g/dL (6.2-8.2); Uric Acid 6.7 mg/dL (3.7-8.7)
[2019-12-05 19:17] LABS: Prostate Specific Antigen 0.1 ng/mL (0.0-6.5)
== END | disposition home or self-care (01) ==
LOC: LABWHC1 08:49
PROVIDERS: ATTEND Family Medicine
DX: Z00.00 Encounter for general adult medical examination without abnormal findings (principal); C61 Malignant neoplasm of prostate; I25.10 Atherosclerotic heart disease of native coronary artery without angina pectoris; E78.2 Mixed hyperlipidemia; M10.9 Gout, unspecified; R73.01 Impaired fasting glucose; E55.9 Vitamin D deficiency, unspecified
CPT/HCPCS: 36415; 80053; 80061; 82306; 82550; 82607; 83036; 83735; 84153; 84443; 84550; 85025

== ENCOUNTER → 2021-02-03 | Outpatient (CLI) | payer MEDICARE, BC ==
[2021-02-03 10:09] LABS: Appearance,Urine Clear (Clear); Bilirubin,Urine Negative (Negative); Blood,Urine Negative (Negative); Color,Urine Yellow; Glucose,Urine (UA) Negative (Negative); Ketones,Urine Negative (Negative); Leukocyte Esterase,Urine Negative (Negative); Nitrite,Urine Negative (Negative); PH, Urine 5.5 (5.0-8.0); Protein,Urine Negative (Negative); Specific Gravity,Urine 1.024 (1.001-1.035); Urobilinogen,Urine <2.0 mg/dL (<2.0)
[2021-02-03 14:49] LABS: Basophils # (A) 0.07 X 10*3/uL (0.00-0.10); Basophils % (A) 0.9 %; Eosinophils # (A) 0.29 X 10*3/uL (0.04-0.35); Eosinophils % (A) 3.5 %; HCT 47.1 % (39.6-50.0); HGB 14.9 g/dL (13.0-17.0); Lymphocytes # (A) 1.98 X 10*3/uL (0.90-5.00); Lymphocytes % (A) 24.1 %; MCH 31.2 pg (27.0-32.0); MCHC 31.6 g/dL (32.0-37.0); MCV 98.7 fL (80.0-97.0); Mean Platelet Volume 8.9 fL (9.5-12.2); Monocytes # (A) 0.82 X 10*3/uL (0.20-1.00); Neutrophils # (A) 5.02 X 10*3/uL (1.80-7.70); Neutrophils % (A) 60.9 %; Platelet Count 242 X 10*3/uL (140-440); RBC 4.77 X 10*6/uL (4.40-5.60); RDW 12.4 % (11.5-14.5); WBC 8.23 X 10*3/uL (4.50-10.00)
[2021-02-03 18:18] LABS: % Iron Saturation 26.79 (15.00-50.00); ALT 19 U/L (10-49); AST 20 U/L (14-35); African American GFR (CKD) 81.9 (60.0-200.0); Albumin 4.5 g/dL (3.8-4.9); Albumin/Globulin Ratio 2.16 (1.60-3.17); Alkaline Phosphatase 57 U/L (41-126); BUN/Creat Ratio 22.12 Ratio (12.00-20.00); Blood Urea Nitrogen 21.9 mg/dL (9.0-27.0); Calcium 9.3 mg/dL (8.7-10.3); Carbon Dioxide 25.1 mmol/L (20.0-27.5); Chloride 104 mmol/L (96-109); Chol/HDL Ratio 5.69 Ratio; Creatine Kinase 83 U/L (35-257); Globulin 2.1 g/dL (1.6-3.3); Glucose 103 mg/dL (70-110); Iron 93 ug/dL (65-175); LDL Cholesterol,Calculated 148.3 mg/dL (0.0-131.0); Magnesium 2.2 mg/dL (1.5-2.4); Non-African American GFR(CKD) 70.6 (60.0-200.0); Potassium 4.6 mmol/L (3.5-5.5); Sodium 142 mmol/L (135-145); Total Iron Binding Capacity 349 ug/dL (228-460); Total Protein 6.6 g/dL (6.2-8.2); Uric Acid 6.3 mg/dL (3.7-8.7)
== END | disposition home or self-care (01) ==
LOC: LABWHC1 08:44
PROVIDERS: ATTEND Family Medicine
DX: I10 Essential (primary) hypertension (principal); I25.10 Atherosclerotic heart disease of native coronary artery without angina pectoris; E78.2 Mixed hyperlipidemia; M10.9 Gout, unspecified; G25.81 Restless legs syndrome
CPT/HCPCS: 36415; 80053; 80061; 81003; 82550; 82607; 83036; 83540; 83550; 83735; 84153; 84443; 84550; 85025

== ENCOUNTER → 2021-09-01 | Outpatient (CLI) | payer MEDICARE, BC ==
[2021-09-01 14:29] LABS: Basophils # (A) 0.06 X 10*3/uL (0.00-0.10); Basophils % (A) 0.7 %; Eosinophils # (A) 0.28 X 10*3/uL (0.04-0.35); Eosinophils % (A) 3.5 %; HCT 44.2 % (39.6-50.0); HGB 14.3 g/dL (13.0-17.0); Immature Grans, Automated 0.4 %; Lymphocytes # (A) 1.95 X 10*3/uL (0.90-5.00); MCH 31.4 pg (27.0-32.0); MCHC 32.4 g/dL (32.0-37.0); MCV 97.1 fL (80.0-97.0); Mean Platelet Volume 9.5 fL (9.5-12.2); Monocytes # (A) 0.78 X 10*3/uL (0.20-1.00); Monocytes % (A) 9.6 %; NRBC Per 100 WBC 0 /100 WBCS (0.0-0.0); Neutrophils # (A) 5.01 X 10*3/uL (1.80-7.70); Neutrophils % (A) 61.8 %; Platelet Count 207 X 10*3/uL (140-440); RBC 4.55 X 10*6/uL (4.40-5.60); RDW 12.7 % (11.5-14.5); WBC 8.11 X 10*3/uL (4.50-10.00)
[2021-09-01 15:05] LABS: ALT 17 U/L (10-49); AST 17 U/L (14-35); African American GFR (CKD) 86.1 (60.0-200.0); Albumin 4.7 g/dL (3.8-4.9); Albumin/Globulin Ratio 2.52 (1.60-3.17); Alkaline Phosphatase 52 U/L (41-126); BUN/Creat Ratio 19.92 Ratio (12.00-20.00); Blood Urea Nitrogen 18.8 mg/dL (9.0-27.0); Calcium 9.3 mg/dL (8.7-10.3); Carbon Dioxide 23.9 mmol/L (20.0-27.5); Chloride 103 mmol/L (96-109); Globulin 1.9 g/dL (1.6-3.3); Glucose 102 mg/dL (70-110); Non-African American GFR(CKD) 74.3 (60.0-200.0); Potassium 4.5 mmol/L (3.5-5.5); Sodium 141 mmol/L (135-145); Total Protein 6.5 g/dL (6.2-8.2)
[2021-09-01 15:06] LABS: Chol/HDL Ratio 6.06 Ratio; Creatine Kinase 104 U/L (35-257); LDL Cholesterol,Calculated 149.6 mg/dL (0.0-131.0); Uric Acid 6.8 mg/dL (3.7-8.7)
== END | disposition home or self-care (01) ==
LOC: LABWHC1 09:44
PROVIDERS: ATTEND Family Medicine
DX: C61 Malignant neoplasm of prostate (principal); I25.10 Atherosclerotic heart disease of native coronary artery without angina pectoris; R73.03 Prediabetes; E78.2 Mixed hyperlipidemia; M13.0 Polyarthritis, unspecified; M10.9 Gout, unspecified
CPT/HCPCS: 36415; 80053; 80061; 82550; 83036; 83970; 84153; 84443; 84550; 85025

== ENCOUNTER → 2022-03-08 | Outpatient (CLI) | payer MEDICARE, BC ==
[2022-03-08 14:54] LABS: Chol/HDL Ratio 5.89 Ratio; LDL Cholesterol,Calculated 154.5 mg/dL (0.0-131.0)
== END | disposition home or self-care (01) ==
LOC: LABWHC1 08:11
PROVIDERS: ATTEND Nurse Practitioner
DX: E78.5 Hyperlipidemia, unspecified (principal)
CPT/HCPCS: 36415; 80061

== ENCOUNTER → 2022-06-15 | Outpatient (CLI) | payer MEDICARE, BC ==
[2022-06-15 16:47] LABS: ALT 16 U/L (10-49); AST 20 U/L (14-35); Albumin 4.5 g/dL (3.8-4.9); Albumin/Globulin Ratio 2.07 (1.60-3.17); Alkaline Phosphatase 61 U/L (41-126); BUN/Creat Ratio 22.39 Ratio (12.00-20.00); Blood Urea Nitrogen 20.2 mg/dL (9.0-27.0); Calcium 9.6 mg/dL (8.7-10.3); Carbon Dioxide 25.9 mmol/L (20.0-27.5); Chloride 104 mmol/L (96-109); Chol/HDL Ratio 2.67 Ratio; Globulin 2.2 g/dL (1.6-3.3); Glucose 112 mg/dL (70-110); LDL Cholesterol,Calculated 59.6 mg/dL (0.0-131.0); Non-African American GFR(CKD) 78.5 (60.0-200.0); Potassium 4.4 mmol/L (3.5-5.5); Sodium 141 mmol/L (135-145); Total Protein 6.6 g/dL (6.2-8.2); VLDL Calculation 19.78 mg/dL (5.00-40.00)
== END | disposition home or self-care (01) ==
LOC: LABWHC1 08:23
PROVIDERS: ATTEND Nurse Practitioner
DX: E78.5 Hyperlipidemia, unspecified (principal)
CPT/HCPCS: 36415; 80053; 80061

== ENCOUNTER → 2023-02-10 | Outpatient (CLI) | payer MEDICARE, BC ==
[2023-02-10 15:29] LABS: Chol/HDL Ratio 2.44 Ratio; LDL Cholesterol,Calculated 41.9 mg/dL (0.0-131.0)
[2023-02-10 15:30] LABS: ALT 10 U/L (10-49); AST 18 U/L (14-35); Albumin 4.4 g/dL (3.8-4.9); Alkaline Phosphatase 59 U/L (41-126); BUN/Creat Ratio 22.38 Ratio (12.00-20.00); Blood Urea Nitrogen 17.9 mg/dL (9.0-27.0); Calcium 9.6 mg/dL (8.7-10.3); Carbon Dioxide 26.9 mmol/L (21.6-31.8); Chloride 104 mmol/L (96-109); Glucose 104 mg/dL (70-110); Sodium 141 mmol/L (135-145); Total Bilirubin 0.6 mg/dL (0.3-1.2); Total Protein 6.4 g/dL (6.2-8.2)
== END | disposition home or self-care (01) ==
LOC: LABWHC1 08:25
PROVIDERS: ATTEND Internal Medicine Interventional Cardiology
DX: I25.10 Atherosclerotic heart disease of native coronary artery without angina pectoris (principal)
CPT/HCPCS: 36415; 80053; 80061; 83036

== ENCOUNTER → 2024-08-03 | Outpatient (CLI) | payer MEDICARE, BC | END | disposition home or self-care (01) | LOC: LABWHC1 10:04 | PROVIDERS: ATTEND Family Medicine | DX: Z91.018 Allergy to other foods (principal) | CPT/HCPCS: 36415 ==